=== PATIENT | male | born 1960 | race Caucasian/White ===

== ENCOUNTER 2018-10-22 00:55 | Observation (INO) | payer MEDICAID ==
[2018-10-22] VITALS (9 sets, daily range): BP systolic 102–124; BP diastolic 53–68; Ht 172.7 cm; Wt 81.1 kg
[~2018-10-22] VITALS: Ht 172.7 cm; Wt 81.1 kg
--- NOTE | ~2018-10-22 | HEMODYNAMI ---
PATIENT:GALINA HEBERT MEDICAL RECORD: [id number] : 56 LOCATION:[place] [address] ADMISSION DATE: 10/22/18 Generatedon:10/22/201814:51 Patient name: GALINA HEBERT Patient #: [id number] SSN: : 1960 Date of study: 10/22/2018 Page: Of Hemodynamic Procedure Report Patient Data Patient Demographics Procedure consent was obtained First Name: GALINA Gender: Male Last Name: EMILEE : 1960 Patient #: [id number] Age: 57 year(s) Race: Unknown Additional ID: [id number] Contact details [address]: [address] [place] [address] State: [place] City: [place] Zip code: [address] Admission Admission Data Admission Date: 10/22/2018 Admission Time: 4:32 Admit Source: Other Room #: D.2116 Height (in.): 67.72 BSA: 1.94 (m2) Height (cm.): 172 BMI: 27.38 (kg/m2) Weight (lbs.): 178.58 Weight (kg.): 81 Lab Results Lab Result Date: 10/22/2018 Lab Result Time: 0:00 Biochemistry Name Units Result Min Max BUN mg/dl 13 --(--*-)-- 7 18 Creatinine mg/dl 1 --(--*-)-- 0.6 1.3 CBC Name Units Result Min Max Hemoglobin g/dl 15 --(-*--)-- 13.5 17.5 Procedure Procedure Types Cath Procedure Diagnostic Procedure LHC LHC w/Coronaries PCI Procedure PTCA PTCA Initial Procedure Description Procedure Date Procedure Date: 10/22/2018 Procedure Start Time: 14:32 Procedure End Time: 14:50 Procedure Staff Name Function Varsha Gutiérrez RN Cable Television Access Coordinator Denys Dick MD Performing Physician Portia Crow RT Scrub Heike Oconnor RT Monitor Procedure Data Cath Procedure Fluoroscopy Diagnostic fluoroscopy Total fluoroscopy Time: 3.3 time: 3.3 min min Diagnostic fluoroscopy Total fluoroscopy dose: 747 dose: 747 mGy mGy Contrast Material Contrast Material Type Amount (ml) Isovue 370 71 Entry Location Entry Primary Successful Side Size Upsize Upsize Entry Closure Succes sful Closure Location (Fr) 1 (Fr) 2 (Fr) Remarks Device Remarks Femoral Right 5 Fr 6 Fr Exoseal artery Short Estimated blood loss: 5 ml Diagnostic catheters Device Type Used For End Catheter Placement MULTIPACK JL 4.0 5Fr Left Coronary catheter Angiography MULTIPACK 3DRC 5Fr Right Coronary catheter Angiography MULTIPACK Pigtail 5 Fr LV Angiography catheter Procedure Complications No complications Procedure Medications Medication Administration Route Dosage 0.9% NaCl I.V. 100 ml/hr Oxygen etCO2 Nasal cannula 2 l/min Lidocaine 2% added to field 20 Heparin Flush Bag added to field 2 bags (1000units/500ml NS) Versed I.V. 2 mg Fentanyl I.V. 50 mcg Plavix P.O. 75 mg Heparin Bolus I.V. 5000 units Fentanyl I.V. 50 mcg Hemodynamics Rest BSA: 1.94 (m2) O2 Consumption: Estimated: 239.95 (ml/min) O2 Consumption indexed : Estimated:123.69 (ml/min/m) Heart Rate: 86 (bpm) Pressure Samples Time Site Value (mmHg) Purpose Heart Use Rate(bpm) 14:38 LV 76/-3,0 Snapshot 74 Gradients Valve Time Site Site Mean SEP/DFP Peak To Heart Use 1 2 (mmHg) (sec/min) Peak Rate (mmHg) (bpm) Aortic 14:39 LV AO 73 Snapshots Pre Cath Intra NCS Post Cath Vital Signs Time Heart Resp SPO2 etCO2 NIBP (mmHg) Rhythm Pain Status Sedation Rate (ipm) (%) (mmHg) Level (bpm) 14:20:41 74 55 98 12.7 141/82(113) NSR 0 (11) , No 10(A) pain 14:24:59 77 17 96 38.2 117/78(106) NSR 0 (11) , No 10(A) pain 14:29:09 71 11 97 28.5 128/75(111) NSR 0 (11) , No 10(A) pain 14:33:25 69 12 97 20.2 126/75(104) NSR 0 (11) , No 9(A) pain 14:37:35 74 11 96 11.2 122/72(95) NSR 0 (11) , No 9(A) pain 14:41:51 73 16 95 16.5 110/64(83) NSR 4 (11) , 10(A) Distressing 14:46:50 74 17 94 22.5 Measuring NSR 0 (11) , No 9(A) pain 14:46:52 74 17 94 34.5 124/72(103) NSR 0 (11) , No 10(A) pain Medications Time Medication Route Dose Verified Delivered Reason Notes Effectiveness by by 14:20:16 Plavix P.O. 75 mg Denys Varsha for Kapil Brock antiplatelet MD PERDUE therapy 14:20:23 0.9% NaCl I.V. 100 Denys Varsha used for ml/hr Kapil Brock procedure MD PERDUE 14:20:29 Oxygen etCO2 2 Denys Varsha used for Nasal l/min Trivoli Brock procedure cannula MD PERDUE 14:20:34 Lidocaine 2% added 20ml Denys Ricoory for local to vial [facility] anesthetic field MD KELLY 14:20:39 Heparin Flush added 2 Denys Denys used for Bag to bags [facility] procedure (1000units/500ml field MD KELLY NS) 14:32:27 Versed I.V. 2 mg Denys Varsha for sedation St Aden Gutiérrez MD, RN 14:32:38 Fentanyl I.V. 50 Denys Varsha for sedation [facility] St Aden Gutiérrez MD, RN 14:41:13 Heparin Bolus I.V. 5000 Denys Varsha for verif ied units [facility] anticoagulation with Dr. MD PERDUE [place] 14:42:01 Fentanyl I.V. 50 Denys Varsha for sedation [facility] St Aden Gutiérrez MD, RN Procedure Log Time Note 14:15:54 Portia Crow RT(R) sent for patient. Start room use. 14:19:36 Vital chart was started 14:20:16 Plavix 75 mg P.O. was administered by Varsha Gutiérrez RN; for antiplatelet therapy; 14:20:23 0.9% NaCl 100 ml/hr I.V. was administered by Varsha Gutiérrez RN; used for procedure; 14:20:29 Oxygen 2 l/min etCO2 Nasal cannula was administered by Varsha Gutiérrez RN; used for procedure; 14:20:34 Lidocaine 2% 20ml vial added to was administered by Denys Dick MD; for local anesthetic; 14:20:39 Heparin Flush Bag (1000units/500ml NS) 2 bags added to field was administered by Denys Dick MD; used for procedure; 14:29:01 Time tracking: Regular hours (M-F 7:00 - 5:00) 14:29:05 Plan of Care:Hemodynamics will remain stable., Cardiac rhythm will remain stable., Comfort level will be maintained., Respiratory function will remain adequate., Patient/ family verbilizes understanding of procedure., Procedure tolerated without complication., Recovers from procedure without complications.. 14:29:12 Patient received from Med II to CCL 2 Alert and oriented. Tansferred to table in Supine position. 14:29:12 Warm blankets applied, and avila hugger turned on for patient comfort. 14:29:13 Correct patient and procedure confirmed by team. 14:29:14 Signed procedure consent form obtained from patient. 14:29:15 ECG and BP/O2 sat monitors applied to patient. 14:29:16 Baseline sample Acquired. 14:29:20 Rhythm: sinus rhythm 14:29:22 Full Disclosure recording started 14:29:33 H&P Date Dictated: 10/22/2018 New H&P dictated by physician.. 14:29:37 Pre-procedure instructions explained to patient. 14:29:38 Pre-op teaching completed and patient verbalized understanding. 14:29:39 Family in waiting room. 14:29:40 Patient NPO since Midnight. 14:29:42 Is the patient allergic to Iodine/contrast media? No. 14:29:43 Was the patient premedicated? No 14:29:44 Is patient on blood thinner?Yes 14:29:46 ACC The patient was administered the following blood thiners within the last 24 hours: ACCPlavix 14:29:48 Patient diabetic? Yes. 14:29:49 If diabetic: On Metformin? Yes 14:29:53 If on Metformin: Last Dose? 10/20/2018 14:29:57 Previous problem with sedation/anesthesia? No ? 14:29:58 Snore? Yes 14:31:07 Sleep apnea? No 14:31:08 Deviated septum? No 14:31:08 Opens mouth fully? Yes 14:31:09 Sticks out tongue? Yes 14:31:10 Airway obstruction? No ? 14:31:15 Dentures? Yes out 14:31:22 Pre procedure: right dorsailis pedis pulse Inaccessible 14:31:28 Pre procedure: left dorsailis pedis pulse Inaccessible 14:31:32 Patient pain scale 0/10 ?. 14:31:37 IV patent on arrival in left forearm with 0.9% NaCl at [facility]. 14:31:40 Lab results completed and on chart. 14:31:47 Right groin area was prepped with chlora-prep and draped in sterile fashion 14:31:48 Alarms reviewed by R. N. 14:31:48 Sharps counted by scrub and verified by R.N. 14:31:49 Physician arrived 14:31:49 --------ALL STOP TIME OUT------ 14:31:50 Final Timeout: patient, procedure, and site verified with staff and physician. All members of the team are in agreement. 14:31:51 Right groin site verified by team. 14:31:54 Maximum allowable Isovue 300 dose 300ml. Physician notified. (300ml for normal creatinines. For patients with creatinine of 1.7 or higher multiply weight(kg) x 5 divided by creatinine.) 14:31:58 Fire Safety Assessment: A--An alcohol-based skin anteseptic being used preoperatively., C--Open oxygen or nitrous oxide is being used., D--An ESU, laser, or fiber-optic light is being used. 14:32:01 Physical assessment completed. ASA score P 2 - A patient with mild systemic disease as per Varsha Gutiérrez RN. 14:32:04 Sedation plan: IV Moderate Sedation Medication:Versed, Fentanyl 14:32:07 Procedure started. 14:32:09 Local anesthetic to right femoral artery with Lidocaine 2% by Denys Dick MD.INITIAL ACCESS ONLY 14:: A 5 Fr sheath was inserted into the Right Femoral artery 14:32: Versed 2 mg I.V. was administered by Varsha Gutiérrez RN; for sedation; 14::38 Fentanyl 50 mcg I.V. was administered by Varsha Gutiérrez RN; for sedation; 14:: Use device set Femoral Dx 14:34:24 ACIST Syringe (39991) opened to sterile field. 14:34:24 Bag Decanter (2002S) opened to sterile field. 14:34:25 Medline Cath Pack ([id number]) opened to sterile field. 14:34:25 DIAGNOSTIC WIRE .035 260cm J wire (776635) opened to sterile field. 14:34:27 ACIST Hand Control (05616) opened to sterile field. 14:34:27 ACIST Manifold (04849) opened to sterile field. 14:34:27 DIAGNOSTIC Multipack 5Fr catheter set (YG3228) opened to sterile field. 14:34:28 Tegaderm 4 x 4 (1626W) opened to sterile field. 14:34:29 SHEATH 5FR Turpin (IHO980) opened to sterile field. 14:34:37 A MULTIPACK JL 4.0 5Fr catheter was advanced over the wire and used for Left Coronary Angiography. 14:35:13 LCA angiography performed. 14:35:16 Injector settings: Ml/sec: 3, Volume: 6, 14:35:44 Lab Result : Hemoglobin 15 g/dl 14:35:44 Lab Result : Creatinine 1 mg/dl 14:35:44 Lab Result : BUN 13 mg/dl 14:35:48 Admit Source: Other 14:35:51 Patient Weight : 178.58 lbs 14:35:57 Patient Height : 67.72 inches 14:36:34 Injector settings: Ml/sec: 3, Volume: 6, 14:36:36 Catheter removed. 14:36:42 A MULTIPACK 3DRC 5Fr catheter was advanced over the wire and used for Right Coronary Angiography. 14:37:04 RCA angiography performed. 14:37:07 Injector settings: Ml/sec: 3, Volume: 6, 14:37:21 Catheter removed. 14:38:03 A MULTIPACK Pigtail 5 Fr catheter was advanced over the wire and used for LV Angiography. 14:38:43 LV hemodynamics recorded. 14:38:44 LV gram done using DUARTE 14:39:03 EF : 55 % 14:39:21 Catheter removed. 14:39:25 Proceeding to intervention. 14:39:47 SHEATH 6FR Turpin (FYC921) opened to sterile field. 14:39:48 INFLATOR Merit BasixCompak (GA9608) opened to sterile field. 14:39:53 BMW 300cm Moneta 2 J wire (1109497F) opened to sterile field. 14:40:12 GUIDE 6FR EBU 3.5 catheter (EC4NJN50) opened to sterile field. 14:40:27 Sheath upsized to a 6 Fr Short. 14:40:57 6 Fr ebu 3.5 guide catheter was inserted over the wire 14:41:13 Heparin Bolus 5000 units I.V. was administered by Varsha Gutiérrez RN; for anticoagulation; verified with Dr. Llamas 14:42:01 Fentanyl 50 mcg I.V. was administered by Varsha Gutiérrez RN; for sedation; 14:42:20 WHISPER 300cm guide wire ([id number]) opened to sterile field. 14:42:31 whisper wire advanced. 14:44:17 Inflate balloon Inflation number: 1 A EMERGE OTW 2.5 x 12 balloon ([id number]) was prepped and advanced across the Ramus, then inflated to 12 TRINI for 0:30 (min:sec). 14:44:57 Inflation number: 2 The EMERGE OTW 2.5 x 12 balloon ([id number]) was reinflated across the Ramus, to 12 TRINI for 0:30 (min:sec). 14:46:05 Balloon removed over the wire. 14:46:05 Wire removed. 14:46:06 Guide catheter removed. 14:46:17 EXOSEAL 6Fr (EX600) opened to sterile field. 14:46:29 Sheath removed intact; hemostasis achieved with Exoseal to the Right Femoral artery. 14:46:52 Procedure ended.(Physican Out) 14:47:14 Fluoroscopy time 03.30 minutes. 14:47:18 Fluoroscopy dose: 747 mGy 14:47:18 Flurop Dose total: 747 14:47:56 Contrast amount:Isovue 370 71ml. 14:48:30 Sharps counted by scrub and verified by R.N. 14:48:38 Insertion/operative site no bleeding no hematoma. 14:48:41 Post-op/insertion site Right Femoral artery dressed using a 4 x 4 and Tegaderm. 14:48:44 Post right femoral artery:stable 14:48:45 Post Procedure Pulses reassessed and unchanged 14:48:48 Post procedure rhythm: unchanged. 14:48:55 Estimated blood loss: 5 ml 14:48:56 Post procedure instruction explained to patient.Patient verbalizes understanding. 14:48:57 Patient needs reinforcement of post procedure teaching. 14:49:18 Procedure type changed to Cath procedure, Diagnostic procedure, LHC, LHC w/Coronaries, PCI procedure, PTCA, PTCA Initial 14:49:20 Procedure and supply charges have been captured, reviewed, submitted and are correct. 14:49:57 Procedure Complication : No complications 14:50:06 Vital chart was stopped 14:50:07 See physician's report for complete and final results. 14:50:21 Report given to Med II. 14:50:27 Patient transfered to Med II with Stretcher. 14:50:28 Procedure ended. 14:50:28 Full Disclosure recording stopped 14:50:34 ACC-PCI Only Patient was given prescriptions, or instructed by Denys Dick MD to start/continue the following medications upon discharge: Plavix 14:50:36 End room use (Document Last) Intervention Summary Intervention Notes Time ActionType Lesion and Equipment Action# Pressure Duration Attributes Used 14:44:17 Inflate Ramus EMERGE OTW 1 12 00:30 balloon 2.5 x 12 balloon ([id number]) 14:44:57 Reinflate Ramus EMERGE OTW 2 12 00:30 balloon 2.5 x 12 balloon ([id number]) Device Usage Item Name Manufacture Quantity Catalog Number Hospital Part Current Min imal Lot# / Charge Number Stock Stock Serial# Code ACIST Acist 1 64536 857090 018363 748603 20 Syringe Medical (65510) Systems Inc Bag Decanter Microtek 1 638080 37044 230730 5 () Medical Inc. Medline Cath Medline 1 [id number] 943511 78154 373056 5 Pack ([id number]) DIAGNOSTIC [facility] Elias 1 233906 845936 870512 263090 30 WIRE .035 260cm J wire (820656) ACIST Hand Acist 1 26553 582369 007885 747118 5 Control Medical (48302) Systems Inc ACIST Acist 1 83729 693482 898477 275085 5 Manifold Medical (46279) Systems Inc DIAGNOSTIC Cardinal 1 WB4887 303944 95172 661369 30 Acorns 5Fr catheter set (YW1159) Tegaderm 4 x 3M 1 1626W 356939 346929 631692 5 4 (1626W) SHEATH 5FR Terumo 1 TBO933 499070 385020 414697 5 Turpin (VAD083) MULTIPACK JL Cardinal 1 573926 5 4.0 5Fr Health catheter MULTIPACK Cardinal 1 010859 5 3DRC 5Fr Health catheter MULTIPACK Cardinal 1 760169 5 Pigtail 5 Fr Health catheter SHEATH 6FR Terumo 1 JMA615 644476 242445 748512 40 Turpin (IAV296) INFLATOR Merit 1 IH6383 856668 412947 593926 15 [facility] Medical BasixCompak (CV4455) BMW 300cm Torres 1 [id number] 046593 672728 759905 5 Moneta 2 Vascular J wire (9324222N) GUIDE 6FR Medtronic 1 [id number] 563494 71220 365042 3 EBU 3.5 catheter (DL0WSJ29) WHISPER Torres 1 [id number] 329912 416962 851540 5 300cm guide Vascular wire (0205850LS) EMERGE OTW [place] 1 [id number] 745534 156881 971961 5 [id number] 2.5 x 12 Scientific balloon ([id number]) EXOSEAL 6Fr Cardinal 1 EX600 462153 829561 229908 10 (EX600) Health Signature Audit [place] Stage Time Signature Unsigned Intra-Procedure 10/22/2018 Heike Oconnor 2:51:33 PM RT(R) Signatures Monitor : Heike Oconnor RT Signature : Date : Time : [facility] [address] [place] [address]
--- NOTE | ~2018-10-22 | OP ---
PATIENT NAME: GALINA HEBERT MEDICAL RECORD: [id number] :56 LOCATION:D. D.2116 ADMISSION DATE:10/22/18 SURGEON: REMY SANTOS MD DATE OF OPERATION: 10/22/2018 PROCEDURE: Left heart catheterization, selective coronary angiography, plus PTCA to ramus branch, right femoral artery approach. CATHETERS: A 5-Croatian sheath, 5/4 left and right Mona, 5/4 pig. The procedure was well tolerated. The patient returned to the alejandro, sheath removed. ExoSeal device placed. FINDINGS: Left ventriculography in 30-degree DUARTE view; normal wall motion and normal systolic function. CORONARY ANATOMY: LEFT MAIN: Left main is free of disease. LAD: An area of previous stenting is widely patent without evidence of restenosis and no progression of [place] disease. There is a high OM versus ramus branch with an elongated 80% stenosis. CIRCUMFLEX: Otherwise, free of disease. RIGHT CORONARY ARTERY: The area of previously placed stents are widely patent without evidence of restenosis. No progression of [place] disease. IMPRESSION: Intervention of the ramus/high obtuse marginal momentarily. DESCRIPTION OF PROCEDURE: A 5-Croatian sheath was exchanged for a 6-Croatian sheath. EBU 3.5 guiding catheter provided good guide catheter support followed by 300-cm Whisper wire. Balloon inflation was performed using 2.5 x 15 mm Knott balloon up to 12 atmospheres up and down. The elongated 80% stenosis showed excellent resolution of 80% stenosis with a stent like result. LEANDRO flow was 3 throughout the procedure. Heparin was used in the case. Sheath closed with ExoSeal device. TRANSINT:[id number] Voice Confirmation ID: [id number] DOCUMENT ID: [id number] REMY SANTOS MD CC: [id number] DICTATION DATE: 10/22/18 1457 BATTERY INSPECTOR: 10/22/18 1621 ADM IN [facility] [address] [place] [address]
--- NOTE | ~2018-10-22 | CN ---
PATIENT NAME:GALINA HEBERT MEDICAL RECORD: [id number] : 56 LOCATION:[facility] D.2116 ADMIT DATE: 10/22/18 ACCOUNT: [id number] CONSULTING PHYSICIAN: REMY SANTOS MD REFERRING PHYSICIAN: MARIA T SURESH MD DATE OF CONSULTATION: 10/22/2018 HISTORY OF PRESENT ILLNESS: A 57-year-old gentleman with a known history of coronary artery disease status post PTCA stenting, has a history of peripheral vascular disease status post AKA status post right BKA approximately 2 months ago, admitted with chest pain consistent with typical angina, has one episode of rest pain, typical this has a chronic stable anginal pattern, but this has been worsening postoperatively. We are asked to see him concerning cardiovascular status PAST MEDICAL HISTORY: Includes: 1. History of hypertension. 2. Hyperlipidemia. 3. Diabetes mellitus. 4. Gastroesophageal reflux disease. MEDICATIONS: Include Plavix 75 mg p.o. daily, atorvastatin 80 mg p.o. daily, carvedilol 6.125 daily, Imdur 30 daily, lisinopril 20 daily, aspirin 81 daily, tramadol 50 every 4 hours p.r.n., Protonix 40 mg p.o. daily, insulin per scale, Glucophage, metformin 1 gram b.i.d. SOCIAL HISTORY: Smokes about a pack a day, nonsmoker. No illicit drug use. No set exercise program. ALLERGIES: HYDROCODONE, PENICILLIN. REVIEW OF SYSTEMS: The patient reports easy bruising but reports no swollen glands. The patient reports no fever, no night sweats, no significant weight gain, no significant weight loss. No significant exercise tolerance. The patient reports no dry eyes, no irritation, no vision change. Patient reports no difficulty hearing and no ear pain. Patient reports no frequent nose bleeds or nose and sinus problems. Patient reports on arm pain on exertion. No shortness of breath while lying down. No history of heart murmur. Patient reports no cough, no wheezing or coughing up blood. Patient reports no abdominal pain, no vomiting. Normal appetite. No diarrhea and not vomiting blood. No nausea and no constipation. Patient reports no incontinence. No difficulty urinating. No hematuria. No increased frequency. Patient reports no muscle aches. No weakness, no arthralgias, no back pain. No swelling of the extremities. Patient reports no abnormal mole, no jaundice, no rashes. Reports no loss of consciousness. No weakness and no numbness. No seizures, dizziness, or headaches. The patient reports no depression, no sleep disturbance, feeling safe in a relationship and no alcohol abuse. Patient reports on fatigue. Reports no runny nose or sinus pressure. No itching, no hives, and no frequent sneezing. PHYSICAL EXAMINATION: GENERAL: Pleasant gentleman, in no acute distress. VITAL SIGNS: Blood pressure 102/57, pulse 65 and regular. HEENT: Normocephalic, atraumatic. NECK: No bruits are noted. CONSULT REPORT [id number] GALINA HEBERT HEART: Regular, II/ systolic ejection murmur. LUNGS: Good air excursion. ABDOMEN: Soft, nontender. EXTREMITIES: Lower extremities show well healing scars from previous surgical intervention. IMPRESSION: Accelerated angina. PLAN: For diagnostic angiography, intervention based on the above. TRANSINT:[id number] Voice Confirmation ID: [id number] DOCUMENT ID: [id number] REMY SANTOS MD CC: [id number] DICTATION DATE: 10/22/18753 CHERRY SORTER: 10/22/18 0851 ADM IN [facility] [address] [place] [id number]
[~2018-10-22 00:55] MED LIST: BAYER CHEWABLE81 MG PO; COREG 3.1253.125 MG PO; GLUCOPHAGE500 MG PO; HUMALOG 30100 UNITS/ SC; ISOSORBIDE MONO30 M1 PO; LANTUS INSULIN10 ML SC; LIPITOR40 MG PO; LISINOPRIL10 MG PO; LISINOPRIL5 MG PO; NITROSTAT0.4 MG SL; PLAVIX75 MG PO; PROAIR HFA8.5 GM INH; PROTONIX40 MG PO; ULTRAM50 MG PO; ZOFRAN4 MG PO
[2018-10-22 01:28] LABS: BASOPHILS 0.3 % (0-2); EOSINOPHILS 1.3 % (0-7); HEMATOCRIT 42.8 % (42.0-54.0); IMMATURE GRANULOCYTES 0.3 % (0-5); LYMPHOCYTES 16.4 % (15-50); MCH 30.4 pg (26.0-34.0); MCV 86.8 fL (80.0-100.0); MEAN PLATELET VOLUME 10.6 fL (7.4-10.4); MONOCYTES 9.6 % (2-11); NEUTROPHILS 72.1 % (40-80); PLATELET COUNT 198 10x3/uL (130-400); RBC 4.93 10x6/uL (4.20-6.10); RDW 13.1 % (11.5-14.5); WBC 11.2 10x3/uL (4.8-10.8)
[2018-10-22 01:40] LABS: APTT 29.3 SECONDS (22.8-39.4); INR 1.02 (0.85-1.17); PROTIME 12.9 SECONDS (11.6-15.0)
[2018-10-22 01:42] LABS: ALBUMIN 3.6 g/dL (3.4-5.0); ALKALINE PHOSPHATASE 75 U/L (46-116); ALT (SGPT) 9 U/L (10-68); BILIRUBIN - TOTAL 0.38 mg/dL (0.2-1.3); CALC OSMOLALITY 282 mosm/kg (275-300); CALCIUM 8.6 mg/dL (8.5-10.1); CARBON DIOXIDE 28.8 mmol/L (21.0-32.0); CHLORIDE - SERUM 100 mmol/L (98-107); POTASSIUM - SERUM 4.1 mmol/L (3.5-5.1); PROTEIN - SERUM 6.8 g/dL (6.4-8.2); SODIUM 135 mmol/L (136-145); UREA NITROGEN 13 mg/dL (7-18); eGFR NON AFRICAN AMERICAN 81 mL/min (90-120)
[2018-10-22 01:45] LABS: GLUCOSE 326 mg/dL (74-106)
[2018-10-22 01:55] LABS: CKMB 1.8 U/L (0.0-3.6); CREATINE KINASE 61 UL (21-232); MAGNESIUM - SERUM 1.8 mg/dL (1.8-2.4)
[2018-10-22 01:56] LABS: TROPONIN-I < 0.017 ng/mL (0.000-0.060)
--- NOTE | 2018-10-22 02:01 | NUR ---
PT REFUSED NITRO AT THIS TIME. PT STATES THAT TOOK 8 NITRO TODAY AND THEY DID NOT HELP. INFORMED.
--- NOTE | 2018-10-22 03:00 | NUR ---
PT RESTING ON BED. PT SPOUSE AT BEDSIDE. NO S/S OF ACUTE DISTRESS NOTED.
--- NOTE | 2018-10-22 04:02 | NUR ---
NS INFUSION DECREASED TO KVO DUE TO FSBS
--- NOTE | 2018-10-22 04:04 | NUR ---
FSBS 93. EDP NOTIFIED. PT PROVIDED SANDWICH AND DIET COLA.
--- NOTE | 2018-10-22 04:59 | NUR ---
FSBS 135
--- NOTE | 2018-10-22 05:34 | NUR ---
RECIEVED TO ROOM 2115 FROM ER VIA STRETCHER. PT A&O. RSPERATIONS TAMEKA RA. IV TO LEFT AC SL. SITE CLEAN AND DRY. BILATERAL AKA, LEFT LEG WITH PROSTHESIS, RIGHT BKA WITH A FEW SCABS. PT STATED THAT THE RIGHT AMPUTATION WAS DONE THIS LAST JULY AND THAT HE "GETS AROUND BY WHEEL CHAIR" HISTORY AND MED REC OBTAINED. PLACED ON TELEMETRY, 64 SR PER MT. PT CURRENTLY DENIES PAIN OR NEEDS. SIGNIFICANT OTHER ASHELY IS AT BED SIDE. BED LOW, CL IN REACH.
[2018-10-22 05:37] LABS: CKMB 1.5 U/L (0.0-3.6); CREATINE KINASE 56 UL (21-232)
[2018-10-22 05:50] LABS: TROPONIN-I < 0.017 ng/mL (0.000-0.060)
[2018-10-22 08:12] LABS: BASOPHILS 0.3 % (0-2); EOSINOPHILS 1.6 % (0-7); HEMATOCRIT 43.7 % (42.0-54.0); HEMOGLOBIN 15.1 g/dL (13.5-17.5); IMMATURE GRANULOCYTES 0.2 % (0-5); LYMPHOCYTES 16.7 % (15-50); MCH 30.4 pg (26.0-34.0); MCHC 34.6 g/dL (31.0-37.0); MCV 87.9 fL (80.0-100.0); MEAN PLATELET VOLUME 11.2 fL (7.4-10.4); MONOCYTES 9.6 % (2-11); NEUTROPHILS 71.6 % (40-80); PLATELET COUNT 213 10x3/uL (130-400); RBC 4.97 10x6/uL (4.20-6.10); RDW 13.4 % (11.5-14.5); WBC 11.4 10x3/uL (4.8-10.8)
[2018-10-22 08:33] LABS: CALC OSMOLALITY 282 mosm/kg (275-300); CALCIUM 8.4 mg/dL (8.5-10.1); CARBON DIOXIDE 25.2 mmol/L (21.0-32.0); CHLORIDE - SERUM 106 mmol/L (98-107); CREATININE - SERUM 0.9 mg/dL (0.6-1.3); SODIUM 140 mmol/L (136-145); UREA NITROGEN 14 mg/dL (7-18); eGFR NON AFRICAN AMERICAN > 90 mL/min (90-120)
[2018-10-22 08:52] LABS: GLUCOSE 150 mg/dL (74-106)
--- NOTE | 2018-10-22 10:17 | NUR ---
URINE SPECIMEN COLLECTED AND TAKEN TO LAB. WILL MONITOR.
[2018-10-22 11:33] LABS: APPEARANCE CLEAR (CLEAR); BILIRUBIN NEGATIVE (NEGATIVE); COLOR YELLOW (YELLOW); GLUCOSE 1000 mg/dL (NEGATIVE); KETONE NEGATIVE (NEGATIVE); NITRITE NEGATIVE (NEGATIVE); PROTEIN NEGATIVE (NEGATIVE); SPECIFIC GRAVITY 1.015 (1.005-1.020)
[2018-10-22 11:38] LABS: CKMB 1.5 U/L (0.0-3.6); CREATINE KINASE 45 UL (21-232)
[2018-10-22 11:39] LABS: TROPONIN-I < 0.017 ng/mL (0.000-0.060)
--- NOTE | 2018-10-22 14:13 | NUR ---
TAMI HDZ. PRE-OPS GIVEN. REFUSES SCDS AT THIS TIME. LEAVING FOR EAR MUFF ASSEMBLER BY BED.
--- NOTE | 2018-10-22 15:24 | NUR ---
BACK FROM DETONATOR ASSEMBLER. VS WNL. RIGHT GROIN STABLE WITHOUT BLEEDING OR HEMATOMA NOTED. WILL MONITOR.
[2018-10-22 16:30] LABS: CREATINE KINASE 47 UL (21-232); TROPONIN-I < 0.017 ng/mL (0.000-0.060)
[2018-10-22 16:33] LABS: CKMB 5.5 U/L (0.0-3.6)
--- NOTE | 2018-10-22 19:51 | NUR ---
RESUMING PATIENT CARE. PATIENT IS ALERT AND ORIENTED. RESTING COMFORTABLY IN BED. RESPIRATIONS ARE EVEN AND UNLABORED. NO S/S OF DISTRESS. NO C/O PAIN. DENIES NEEDS. FAMILY AT BEDSIDE. CALL LIGHT WITHIN REACH. WILL CPOC.
--- NOTE | 2018-10-22 21:27 | NUR ---
CALLED [facility]S TO SEE IF SOMEONE COULD BRING SOME SCRUB PANTS REQUESTED. [facility] TO BE BRING THEM UP. RECEIVED PHONE CALL FROM MED/SURG. PATIENT SIGNIFICANT OTHER WENT TO MED/SURG AND ASKED THEM TO CALL THE [employer] BECAUSE SHE THOUGHT SHE WOULD GET THE SCRUB PANTS FASTER,
[2018-10-23 00:40] VITALS: BP 124/72
[2018-10-23 05:38] VITALS: BP 118/52
[2018-10-23 06:33] LABS: CALCIUM 8.5 mg/dL (8.5-10.1); CARBON DIOXIDE 24.7 mmol/L (21.0-32.0); CHLORIDE - SERUM 105 mmol/L (98-107); GLUCOSE 138 mg/dL (74-106); POTASSIUM - SERUM 4.2 mmol/L (3.5-5.1); SODIUM 138 mmol/L (136-145)
[2018-10-23 06:42] LABS: CALC OSMOLALITY 279 mosm/kg (275-300); CREATININE - SERUM 0.6 mg/dL (0.6-1.3); UREA NITROGEN 19 mg/dL (7-18); eGFR NON AFRICAN AMERICAN > 90 mL/min (90-120)
[2018-10-23 07:36] LABS: BASOPHILS 0.4 % (0-2); EOSINOPHILS 2.3 % (0-7); HEMATOCRIT 41.4 % (42.0-54.0); HEMOGLOBIN 14.2 g/dL (13.5-17.5); IMMATURE GRANULOCYTES 0.1 % (0-5); LYMPHOCYTES 22.8 % (15-50); MCH 29.8 pg (26.0-34.0); MCHC 34.3 g/dL (31.0-37.0); MEAN PLATELET VOLUME 10.4 fL (7.4-10.4); MONOCYTES 9.4 % (2-11); RBC 4.76 10x6/uL (4.20-6.10); RDW 13.3 % (11.5-14.5)
[2018-10-23 07:38] LABS: PLATELET COUNT 169 10x3/uL (130-400); WBC 7.4 10x3/uL (4.8-10.8)
[2018-10-23 08:00] VITALS: BP 102/66
--- NOTE | 2018-10-23 09:30 | NUR ---
LEAVING FOR CTA CHEST BY W/C. WILL CONT. PLAN OF CARE.
[2018-10-23] MEDS ORDERED: CARAFATE1 G PO (10:42)
[2018-10-23 11:00] VITALS: BP 139/64
--- NOTE | 2018-10-23 12:41 | NUR ---
IV AND TELEMETRY DCD. DC PLANS GIVEN. UNDERSTANDING VOICED. ESCORTED TO CAR BY W/C.
--- NOTE | 2018-10-24 07:48 | MORECARE ---
CASE MANAGEMENT DISCHARGE SUMMARY PATIENT: GALINA HEBERT UNIT: [id number] ADM DATE: 10/22/18 AGE: 57 : 56 SEX: M ROOM/BED: D.2116 AUTHOR: VIRGINIE FERGUSON PHYSICIAN: REFERRING PHYSICIAN: MARIA T SURESH MD DATE OF SERVICE: 10/24/18 Discharge Plan Patient Name: GALINA HEBERT Facility: [facility]:[place] : 1960 Planned Disposition: Home Anticipated Discharge Date: 10/23/18 Discharge Date: 10/23/2018 Expected LOS: 1 Initial Reviewer: [email or web address] Initial Review Date: 10/24/2018 Generated: 10/24/18 8:48 am Patient Name: GALINA HEBERT Page 00930 at 0748 All edits/amendments must be made on the electronic document DICTATION DATE: 10/24/1848 SUPERVISOR TELEPHONE CLERKS: [email or web address] 10/24/18 0748 RPT#: [id number] DC DATE:10/23/18 STATUS: DIS IN [facility] [address] [place] [address] END OF REPORT
== END 2018-10-23 12:44 | disposition home or self-care (01) ==
LOC: D.ER 00:55 → OBSVTIME 04:32 → D.EDHOLD 04:32 → D.M2 04:55
PROVIDERS: Family Medicine; Internal Medicine Interventional Cardiology; ADMIT Internal Medicine Nephrology; ATTEND Internal Medicine Nephrology
DX: I25.110 Atherosclerotic heart disease of native coronary artery with unstable angina pectoris (principal); I10 Essential (primary) hypertension; J96.01 Acute respiratory failure with hypoxia; E78.5 Hyperlipidemia, unspecified; J44.9 Chronic obstructive pulmonary disease, unspecified; E11.51 Type 2 diabetes mellitus with diabetic peripheral angiopathy without gangrene; F17.213 Nicotine dependence, cigarettes, with withdrawal; K21.9 Gastro-esophageal reflux disease without esophagitis

== ENCOUNTER 2018-10-24 01:29 | Observation (INO) | payer MEDICAID ==
[2018-10-24] VITALS (12 sets, daily range): BP systolic 81–154; BP diastolic 44–94; Ht 172.7 cm; Wt 70.0 kg
[~2018-10-24] VITALS: Ht 172.7 cm; Wt 70.0 kg
[~2018-10-24 01:29] MED LIST changes: +CARAFATE1 G PO
[2018-10-24 01:53] LABS: BASOPHILS 0.1 % (0-2); EOSINOPHILS 1.5 % (0-7); HEMATOCRIT 45.2 % (42.0-54.0); HEMOGLOBIN 16.2 g/dL (13.5-17.5); IMMATURE GRANULOCYTES 0.1 % (0-5); LYMPHOCYTES 20.2 % (15-50); MCH 30.5 pg (26.0-34.0); MCHC 35.8 g/dL (31.0-37.0); MEAN PLATELET VOLUME 10.1 fL (7.4-10.4); MONOCYTES 7.6 % (2-11); NEUTROPHILS 70.5 % (40-80); PLATELET COUNT 198 10x3/uL (130-400); RBC 5.32 10x6/uL (4.20-6.10); WBC 8.5 10x3/uL (4.8-10.8)
[2018-10-24 02:08] LABS: ALBUMIN 3.7 g/dL (3.4-5.0); ALKALINE PHOSPHATASE 72 U/L (46-116); ALT (SGPT) 14 U/L (10-68); BILIRUBIN - TOTAL 0.51 mg/dL (0.2-1.3); CALCIUM 9.3 mg/dL (8.5-10.1); CARBON DIOXIDE 25.6 mmol/L (21.0-32.0); CHLORIDE - SERUM 99 mmol/L (98-107); POTASSIUM - SERUM 4.1 mmol/L (3.5-5.1); PROTEIN - SERUM 7.2 g/dL (6.4-8.2); SODIUM 133 mmol/L (136-145)
[2018-10-24 02:11] LABS: CALC OSMOLALITY 272 mosm/kg (275-300); CREATININE - SERUM 0.9 mg/dL (0.6-1.3); GLUCOSE 219 mg/dL (74-106); UREA NITROGEN 13 mg/dL (7-18); eGFR NON AFRICAN AMERICAN > 90 mL/min (90-120)
[2018-10-24 02:20] LABS: CKMB 2.2 U/L (0.0-3.6); CREATINE KINASE 76 UL (21-232); MAGNESIUM - SERUM 1.9 mg/dL (1.8-2.4)
--- NOTE | 2018-10-24 02:25 | NUR ---
MORPHINE 6MG IV GIVEN PER ORDER, PATIENT'S PAIN REDUCED TO 5.
[2018-10-24 02:29] LABS: TROPONIN-I < 0.017 ng/mL (0.000-0.060)
[2018-10-24 02:57] LABS: APTT 27.3 SECONDS (22.8-39.4); INR 0.99 (0.85-1.17); PROTIME 10.3 SECONDS (11.6-15.0)
[2018-10-24 03:25] LABS: D-DIMER-QUANTITATIVE 1.12 ug/mLFEU (0.20-0.54)
--- NOTE | 2018-10-24 04:41 | NUR ---
PATIENT ARRIVED TO UNIT. PATIENT ALERT AND ORIENTED. RESPIRATIONS ARE EVEN AND UNLABORED. PATIENT DENIES PAIN. WHEN GOIGNT THROUGH MED REC. PATIENT COULD NOT TELL ME LAST DOSE. PATIENT STATED, "HE HAD NOT GONE TO PHARMACY TO GET HIS MEDS". PATIENT EDUCATED ON THE IMPORTANT TO TAKE MEDICATION PRESCRIBED. PATIENT SAID, "HE DID NOT HAVE A HAVE TO GET TO THE PHARMACY TO GET THEM.
--- NOTE | 2018-10-24 07:20 | NUR ---
RECEIVED PT IN BED EYES CLOSED RESP UNLABORED NAD NOTED AT BEDSIDE
[2018-10-24 08:27] LABS: CKMB 1.9 U/L (0.0-3.6); CREATINE KINASE 51 UL (21-232)
[2018-10-24 08:28] LABS: TROPONIN-I < 0.017 ng/mL (0.000-0.060)
--- NOTE | 2018-10-24 08:52 | NUR ---
PT C/O OF FEELING LIKE BLOOD SUGAR LOW CHECKED FSBS 73 PT BECAME BELIGERENT STATING THAT IS TOO LOW FOR ME EXPLAINED TO PT WE HAVE A PROTOCOL FOR BLOOD SUGAR BELOW 80 PT STATED HE DIDN'T GIVE A DAMN WHAT WE HAD HE NEEDED ONE OF THOSE SMALL COKES EXPLAINED HE WAS NPO UNITL SEEN BY CARDIOLOGY PT YELLING HE DIDIN'T CARE WHAT CARDIOLOGY WANTED HE WAS GOING TO EAT EVEN IF HE DIDN'T GET ANYTHING DONE
--- NOTE | 2018-10-24 09:10 | NUR ---
PT EATING PEANUT BUTTER AND CRACKERS AND HAS A COKE STATES HE WILL EAT WHAT HE WANTS CARDIOLOGY NOTIFIED
--- NOTE | 2018-10-24 10:00 | NUR ---
RESTING QUIETLY CALM AT THIS TIME AT BEDSIDE
[2018-10-24 13:34] LABS: CKMB 1.7 U/L (0.0-3.6); CREATINE KINASE 42 UL (21-232); TROPONIN-I 0.017 ng/mL (0.000-0.060)
--- NOTE | 2018-10-24 23:11 | NUR ---
INTRODUCED SELF TO PATIENT, AT BEDSIDE. NO NEEDS AT THIS TIME. RESP EVEN AND UNLABORED.
--- NOTE | 2018-10-25 01:26 | NUR ---
PATIENT REQUESTED PAIN MEDICATION BUT WHEN THIS NURSE WENT INTO ROOM, PATIENT WAS AUDIBLY SNORING.
--- NOTE | 2018-10-25 03:29 | NUR ---
PATIENT RESTING WITH EYES CLOSED, RESP EVEN AND UNLABORED. CALL LIGHT IN REACH, SPOUSE ASLEEP AT BEDSIDE.
[2018-10-25 04:00] VITALS: BP 105/53
[2018-10-25 07:03] LABS: APPEARANCE CLEAR (CLEAR); COLOR YELLOW (YELLOW); SPECIFIC GRAVITY 1.015 (1.005-1.020)
[2018-10-25 07:04] LABS: BILIRUBIN NEGATIVE (NEGATIVE); GLUCOSE 250 mg/dL (NEGATIVE); KETONE NEGATIVE (NEGATIVE); NITRITE NEGATIVE (NEGATIVE); PROTEIN NEGATIVE (NEGATIVE); UROBILINOGEN NORMAL (NORMAL)
[2018-10-25 07:56] VITALS: BP 109/59
[2018-10-25 11:37] VITALS: BP 111/52
[2018-10-25 14:24] LABS: HEMATOCRIT 39.9 % (42.0-54.0); HEMOGLOBIN 13.3 g/dL (13.5-17.5); MCH 29.8 pg (26.0-34.0); MCHC 33.3 g/dL (31.0-37.0); MEAN PLATELET VOLUME 10.4 fL (7.4-10.4); PLATELET COUNT 186 10x3/uL (130-400); RBC 4.47 10x6/uL (4.20-6.10); RDW 13.2 % (11.5-14.5); WBC 8.5 10x3/uL (4.8-10.8)
[2018-10-25 14:27] LABS: MCV 89.3 fL (80.0-100.0)
[2018-10-25 14:45] LABS: ALBUMIN 3.1 g/dL (3.4-5.0); ANION GAP 13.1 mmol/L (8-16); BILIRUBIN - TOTAL 0.22 mg/dL (0.2-1.3); CALCIUM 8.4 mg/dL (8.5-10.1); CARBON DIOXIDE 26.6 mmol/L (21.0-32.0); POTASSIUM - SERUM 4.7 mmol/L (3.5-5.1); PROTEIN - SERUM 5.8 g/dL (6.4-8.2)
[2018-10-25 14:52] LABS: CREATININE - SERUM 1.2 mg/dL (0.6-1.3)
[2018-10-25 15:53] LABS: EOSINOPHILS 1 % (0-7); LYMPHOCYTES 28 % (15-50); MONOCYTES 2 % (2-11); NEUTROPHILS 69 % (40-80); PLATELET ESTIMATE NORMAL
[2018-10-25 15:56] VITALS: BP 104/60
--- NOTE | 2018-10-25 19:30 | NUR ---
PT ASKING FOR PAIN MEDS WHILE REPORT OCCURRING. AT THE SAME TIME HE WAS HEADING OUTSIDE TO GET "FRESH AIR" WITH HIS . INSTRUCTED PT THAT PAIN MEDS WOULD BE GIVEN WHEN HE RETURNED FROM OUTSIDE. WHEN PT RETURNED TO ROOM, HAD TO RESITE IV THAT WAS NO LONGER EVEN IN HIS WRIST TO LEFT HAND AND THEN GAVE MORPHINE 4MG SIVP.
[2018-10-25 20:00] VITALS: BP 147/69
--- NOTE | 2018-10-25 21:00 | NUR ---
PT ASKING AGAIN FOR PAIN MEDICATION. EXPLAINED THAT HE ONLY JUST RECIEVED A DOSE AND IT WAS EVERY 3 HOURS. PT THEN ARGUING WITH HIS IN ROOM AND THEN SHE WAS GONE.
--- NOTE | 2018-10-25 22:00 | NUR ---
BEDTIME MEDS GIVEN. FSBS 212 AND PT AGREED TO LANTUS, BUT DECLINED HIS SLIDING SCALE BECAUSE IT WOULD "BOTTOM" HIM OUT BY MORNING. PT ALSO REQUESTING SNACKS AND DRINKS. BOTH PROVIDED. AGAIN ASKING FOR PAIN MEDS, INFORMED IT WOULD BE 2230 BEFORE HIS NEXT DOSE. PT ASKED IF HE SHOULD CALL NURSE TO REMIND HER TO BRING IT. INSTRUCTED PT THAT MEDICATION WOULD BE GIVEN AT 2230.
--- NOTE | 2018-10-25 23:27 | NUR ---
PT CALLED FOR ADDITIONAL PAIN MEDS. STATES HE NEEDS MORE, THAT IT DID NOT WORK. EXPLAINED TO PATIENT THAT HE CAN ONLY HAVE MORPHINE EVERY 3 HOURS AND IT HAS ONLY BEEN ONE HOUR SINCE HE RECIEVED A DOSE. OFFERED PT A NITRO TAB FOR CHEST PAIN. PT DECLINED SAYING HE NEEDED PAIN MEDICATION. SR/61 PER TELEMETRY. WILL MONITOR AND PROVIDE PAIN MEDICATIONS ORDERED.
--- NOTE | 2018-10-26 01:05 | NUR ---
PT HAS BEEN WATCHING TV WITH NO C/O UNTIL NOW. BACK INTERLOCKING MACHINE OPERATOR LIGHT. DEMANDING PAIN MED. INSTRUCTED THAT IT IS STILL NOT DUE UNTIL 129 AND WILL BE GIVEN AT THAT TIME. PT VERY ANGRY. WILL MEDICATE ORDERED. SR PER TELEMETRY.
--- NOTE | 2018-10-26 01:31 | NUR ---
ADMINISTERED MORPHINE 4MG SIVP AT THIS TIME. PT'S HAS RETURNED TO ROOM FROM BEING SEEN IN ER FOR HER OWN MEDICAL NEEDS. PT ALERT/TELLING THIS NURSE HOW SORRY HE WAS FOR "GETTING MEAN" WITH HER BUT THAT HE JUST "HURTS SO BAD". SOON MORPHINE GIVEN, PT TELLS NURSE HE IS GOING OUTSIDE WITH TO "GET SOME FRESH AIR". MONITOR AND CPOC.
--- NOTE | 2018-10-26 02:55 | NUR ---
PT NOW BACK IN ROOM AND RESTING. AT BEDSIDE.
[2018-10-26 04:00] VITALS: BP 98/50
--- NOTE | 2018-10-26 04:45 | NUR ---
OUT TO NURSE SAYING "SOM IS HURTING AGAIN". PT STATES PAIN 10/10 IN CHEST AREA AND HE IS "HURTING REAL BAD" AND "JUST CAN'T STAND IT". PT HAS BEEN OUTSIDE TWICE SINCE LAST DOSE OF IV MORPHINE GIVEN. PT ALSO WANTING A FOOD TRAY OR SNACK. SAYING HE JUST NEEDS FOOD SO BAD. PUDDING GIVEN.
[2018-10-26 05:08] LABS: BASOPHILS 0.3 % (0-2); EOSINOPHILS 2.5 % (0-7); HEMATOCRIT 41.8 % (42.0-54.0); HEMOGLOBIN 14.4 g/dL (13.5-17.5); IMMATURE GRANULOCYTES 0.3 % (0-5); LYMPHOCYTES 26.1 % (15-50); MCHC 34.4 g/dL (31.0-37.0); MCV 87.1 fL (80.0-100.0); MEAN PLATELET VOLUME 10.6 fL (7.4-10.4); MONOCYTES 9.9 % (2-11); NEUTROPHILS 60.9 % (40-80); PLATELET COUNT 201 10x3/uL (130-400); RDW 13.2 % (11.5-14.5)
[2018-10-26 05:14] LABS: CALC OSMOLALITY 283 mosm/kg (275-300); CALCIUM 8.9 mg/dL (8.5-10.1); CARBON DIOXIDE 25.6 mmol/L (21.0-32.0); CHLORIDE - SERUM 104 mmol/L (98-107); GLUCOSE 141 mg/dL (74-106); POTASSIUM - SERUM 4.3 mmol/L (3.5-5.1); SODIUM 139 mmol/L (136-145); UREA NITROGEN 24 mg/dL (7-18); eGFR NON AFRICAN AMERICAN 81 mL/min (90-120)
[2018-10-26 08:18] VITALS: BP 131/85
--- NOTE | 2018-10-26 09:17 | NUR ---
TELEMETRY SR. UP [facility] IN W/C WITH AT SIDE. WILL CONT. PLAN OF CARE.
--- NOTE | 2018-10-26 12:15 | NUR ---
IV 20 GAUGE STARTED TO RIGHT AC AND FLUSHED WITH NS. LINE IS PATENT.
--- NOTE | 2018-10-26 13:36 | NUR ---
LEAVING FOR CTA BY W/C.
[2018-10-26 19:50] VITALS: BP 118/61
--- NOTE | 2018-10-26 20:15 | NUR ---
PT'S OUT TO NURSES STATION DURING REPORT SAYING HER NEEDED HIS PAIN MED NOW. MEDICATED WITH MORPHINE 4MG SIVP + PHENERGAN ORAL AT 1915. PT LAYING UP IN BED. SAYING HE IS JUST HURTING SO BAD AND HE NEEDS MORE MEDS THAN IS BEING GIVEN.
--- NOTE | 2018-10-26 22:02 | NUR ---
PT HAS EATEN SEVERAL SNACKS. NOW OUTSIDE WITH GETTING "FRESH AIR".
--- NOTE | 2018-10-26 23:04 | NUR ---
OUT TO STATION AFTER PT AND SHE RETURNED FROM BEING OUTSIDE. STATES "SOM WANTS HIS MEDICINE". IV MORPHINE 4MG SIVP GIVEN FOR WHAT PT DESCRIBES CONSTANT CHEST PAIN 1010.
[2018-10-26 23:55] VITALS: BP 125/68
[2018-10-27 03:55] VITALS: BP 107/62
[2018-10-27 04:48] LABS: BASOPHILS 0.4 % (0-2); EOSINOPHILS 2.5 % (0-7); HEMATOCRIT 39.8 % (42.0-54.0); HEMOGLOBIN 13.4 g/dL (13.5-17.5); LYMPHOCYTES 28.8 % (15-50); MCH 29.6 pg (26.0-34.0); MCHC 33.7 g/dL (31.0-37.0); MCV 88.1 fL (80.0-100.0); MEAN PLATELET VOLUME 9.8 fL (7.4-10.4); MONOCYTES 8.8 % (2-11); NEUTROPHILS 59.5 % (40-80); PLATELET COUNT 188 10x3/uL (130-400); RBC 4.52 10x6/uL (4.20-6.10); RDW 13.2 % (11.5-14.5); WBC 7.1 10x3/uL (4.8-10.8)
[2018-10-27 04:56] LABS: ANION GAP 10.1 mmol/L (8-16); CREATININE - SERUM 1.1 mg/dL (0.6-1.3); POTASSIUM - SERUM 4.1 mmol/L (3.5-5.1)
[2018-10-27 08:10] VITALS: BP 124/81
[2018-10-27] MEDS ORDERED: MIRALAX17 GM PO (10:04)
--- NOTE | 2018-10-27 10:48 | NUR ---
IV AND TELEMETRY DCD. DC PLANS GIVEN. UNDERSTANDING VOICED. ESCORTED TO CAR BY W/C.
--- NOTE | 2018-10-28 08:52 | MORECARE ---
CASE MANAGEMENT DISCHARGE SUMMARY PATIENT: GALINA HEBERT UNIT: [id number] ADM DATE: 10/24/18 AGE: 57 : 56 SEX: M ROOM/BED: D.2115 AUTHOR: VIRGINIE FERGUSON PHYSICIAN: REFERRING PHYSICIAN: MARIA T SURESH MD DATE OF SERVICE: 10/28/18 Discharge Plan Patient Name: GALINA HEBERT Facility: [facility]:[place] : 1960 Planned Disposition: Home Anticipated Discharge Date: 10/27/18 Discharge Date: 10/27/2018 Expected LOS: 3 Initial Reviewer: [email or web address] Initial Review Date: 10/28/2018 Generated: 10/28/18 9:52 am Patient Name: GALINA HEBERT Page 81498 at 0852 All edits/amendments must be made on the electronic document DICTATION DATE: 10/28/18 0852 CHILD DAY CARE PROVIDER: NIKOLAI 10/28/18 0852 RPT#: [id number] DC DATE:10/27/18 STATUS: DIS IN [facility] [address] [place] [address] END OF REPORT
--- NOTE | 2018-10-29 12:26 | CN ---
PATIENT NAME:GALINA HEBERT MEDICAL RECORD: [id number] : 56 LOCATION:[facility].2115 ADMIT DATE: 10/24/18 ACCOUNT: [id number] CONSULTING PHYSICIAN: REMY SANTOS MD REFERRING PHYSICIAN: MARIA T SURESH MD DATE OF CONSULTATION: 10/24/2018 HISTORY OF PRESENT ILLNESS: A 57-year-old gentleman, recently underwent intervention to a high ramus/OM branch approximately 2 days ago, had presented back to the hospital with chest pain, this is somewhat atypical, dull ache with occasionally sharp exacerbations, reports also having some emesis, marked nausea. Cardiac enzymes are negative times 2 at this point. ECG is without acute change. We are asked to see him concerning his cardiovascular status. PAST MEDICAL HISTORY: Includes history of peripheral vascular disease status post bilateral BKAs; coronary artery disease, status post intervention; most recent OM; diabetes mellitus. MEDICATIONS: Include Plavix 75 every day, carvedilol 3.125 every day, atorvastatin 80 every day, Imdur 30 mg p.o. every day, Lisinopril 20 mg p.o. every day, aspirin 81 mg every day, Carafate 1 gm q.i.d., insulin per scale, Glucophage 1 gm b.i.d. ALLERGIES: HYDROCODONE, PENICILLIN. SOCIAL HISTORY: Nondrinker, smokes about a pack a day. His affect. Easily takes care of most of his ADLs despite bilateral BKAs. REVIEW OF SYSTEMS: The patient reports easy bruising but reports no swollen glands. The patient reports no fever, no night sweats, no significant weight gain, no significant weight loss. No significant exercise tolerance. The patient reports no dry eyes, no irritation, no vision change. Patient reports no difficulty hearing and no ear pain. Patient reports no frequent nose bleeds or nose and sinus problems. Patient reports on arm pain on exertion. No shortness of breath while lying down. No history of heart murmur. Patient reports no cough, no wheezing or coughing up blood. Patient reports no abdominal pain, no vomiting. Normal appetite. No diarrhea and not vomiting blood. No nausea and no constipation. Patient reports no incontinence. No difficulty urinating. No hematuria. No increased frequency. Patient reports no muscle aches. No weakness, no arthralgias, no back pain. No swelling of the extremities. Patient reports no abnormal mole, no jaundice, no rashes. Reports no loss of consciousness. No weakness and no numbness. No seizures, dizziness, or headaches. The patient reports no depression, no sleep disturbance, feeling safe in a relationship and no alcohol abuse. Patient reports on fatigue. Reports no runny nose or sinus pressure. No itching, no hives, and no frequent sneezing. PHYSICAL EXAMINATION: GENERAL: Pleasant gentleman in no acute distress. VITAL SIGNS: Blood pressure 81/50, pulse 59, regular. HEENT: Normocephalic, atraumatic. NECK: No JVD or bruit. HEART: Regular. LUNGS: Prolonged expiratory phase. Few expiratory wheezes. ABDOMEN: Soft, nontender. CONSULT REPORT [id number] GALINA HEBERT EXTREMITIES: Show well-healed bilateral BKA scar. DIAGNOSTIC DATA: ECG without acute change. IMPRESSION: Doubt acute thrombosis, closure, etc, strickly in view of no ECG changes. Could consider workup for the etiology of chest pain at this point. TRANSINT:[id number] Voice Confirmation ID: [id number] DOCUMENT ID: [id number] REMY SANTOS MD at 1226 CC: [id number] DICTATION DATE: 10/24/18 0853 CHANGE MANAGEMENT CONSULTANT: 10/24/18 1111 DIS IN 10/27/18 [place] [id number] [place] [address]
== END 2018-10-27 10:49 | disposition home or self-care (01) ==
LOC: D.ER 01:29 → OBSVTIME 03:23 → D.M2 03:23
PROVIDERS: Emergency Medicine; ADMIT Internal Medicine Nephrology; ATTEND Internal Medicine Nephrology
DX: R07.89 Other chest pain (principal); I25.118 Atherosclerotic heart disease of native coronary artery with other forms of angina pectoris; I10 Essential (primary) hypertension; E78.5 Hyperlipidemia, unspecified; J44.9 Chronic obstructive pulmonary disease, unspecified; E11.51 Type 2 diabetes mellitus with diabetic peripheral angiopathy without gangrene; I70.202 Unspecified atherosclerosis of native arteries of extremities, left leg; K21.9 Gastro-esophageal reflux disease without esophagitis; F17.213 Nicotine dependence, cigarettes, with withdrawal; K59.00 Constipation, unspecified

== ENCOUNTER 2018-11-08 21:43 | Emergency (ER) | payer MEDICAID ==
[~2018-11-08] VITALS: Ht 172.7 cm; Wt 80.5 kg
[~2018-11-08 21:43] MED LIST changes: +MIRALAX17 GM PO
[2018-11-08 21:52] VITALS: Ht 172.7 cm; Wt 80.5 kg
[2018-11-08 22:08] LABS: BASOPHILS 0.2 % (0-2); HEMATOCRIT 44.7 % (42.0-54.0); HEMOGLOBIN 16.1 g/dL (13.5-17.5); IMMATURE GRANULOCYTES 0.2 % (0-5); LYMPHOCYTES 21.9 % (15-50); MCV 83.4 fL (80.0-100.0); MEAN PLATELET VOLUME 10.3 fL (7.4-10.4); MONOCYTES 7.7 % (2-11); RBC 5.36 10x6/uL (4.20-6.10); RDW 12.8 % (11.5-14.5); WBC 10.4 10x3/uL (4.8-10.8)
[2018-11-08 22:10] LABS: PLATELET COUNT 250 10x3/uL (130-400)
[2018-11-08 22:16] LABS: APTT 29.2 SECONDS (22.8-39.4); PROTIME 12.7 SECONDS (11.6-15.0)
[2018-11-08 23:00] LABS: ALBUMIN 4.3 g/dL (3.4-5.0); ALKALINE PHOSPHATASE 70 U/L (46-116); ALT (SGPT) 19 U/L (10-68); BILIRUBIN - TOTAL 0.51 mg/dL (0.2-1.3); CALC OSMOLALITY 278 mosm/kg (275-300); CALCIUM 9.5 mg/dL (8.5-10.1); CARBON DIOXIDE 25.6 mmol/L (21.0-32.0); CHLORIDE - SERUM 98 mmol/L (98-107); POTASSIUM - SERUM 3.9 mmol/L (3.5-5.1); PROTEIN - SERUM 7.6 g/dL (6.4-8.2); SODIUM 136 mmol/L (136-145); UREA NITROGEN 13 mg/dL (7-18); eGFR NON AFRICAN AMERICAN 81 mL/min (90-120)
[2018-11-08 23:01] LABS: GLUCOSE 229 mg/dL (74-106)
[2018-11-08 23:23] LABS: CREATINE KINASE 71 UL (21-232); MAGNESIUM - SERUM 1.9 mg/dL (1.8-2.4); TROPONIN-I < 0.017 ng/mL (0.000-0.060)
[2018-11-08 23:24] LABS: CKMB 2.3 U/L (0.0-3.6)
[2018-11-09 00:05] VITALS: BP 137/77
== END 2018-11-09 00:05 | disposition home or self-care (01) ==
LOC: D.ER 21:43
PROVIDERS: Emergency Medicine
DX: R07.9 Chest pain, unspecified (principal)

== ENCOUNTER 2019-03-24 16:13 | Inpatient (IN) | payer MEDICAID ==
[~2019-03-24] VITALS: Ht 172.7 cm; Wt 81.6 kg
[2019-03-24 17:37] LABS: BASOPHILS 0.2 % (0-2); EOSINOPHILS 1.4 % (0-7); HEMATOCRIT 45.2 % (42.0-54.0); HEMOGLOBIN 15.4 g/dL (13.5-17.5); IMMATURE GRANULOCYTES 0.2 % (0-5); LYMPHOCYTES 23.9 % (15-50); MCH 30.1 pg (26.0-34.0); MCHC 34.1 g/dL (31.0-37.0); MCV 88.3 fL (80.0-100.0); MEAN PLATELET VOLUME 10.2 fL (7.4-10.4); MONOCYTES 7.3 % (2-11); PLATELET COUNT 236 10x3/uL (130-400); RBC 5.12 10x6/uL (4.20-6.10); WBC 8.4 10x3/uL (4.8-10.8)
[2019-03-24 17:42] VITALS: BP 119/66
[2019-03-24 17:49] VITALS: BP 114/64
--- NOTE | 2019-03-24 17:52 | NUR ---
PT TO CT NOW
[2019-03-24 17:58] LABS: ALBUMIN 3.6 g/dL (3.4-5.0); ALKALINE PHOSPHATASE 70 U/L (46-116); ALT (SGPT) 12 U/L (10-68); BILIRUBIN - TOTAL 0.31 mg/dL (0.2-1.3); CALC OSMOLALITY 290 mosm/kg (275-300); CALCIUM 8.7 mg/dL (8.5-10.1); CARBON DIOXIDE 26.9 mmol/L (21.0-32.0); CHLORIDE - SERUM 100 mmol/L (98-107); POTASSIUM - SERUM 4.5 mmol/L (3.5-5.1); PROTEIN - SERUM 6.4 g/dL (6.4-8.2); SODIUM 135 mmol/L (136-145); UREA NITROGEN 19 mg/dL (7-18); eGFR NON AFRICAN AMERICAN 81 mL/min (90-120)
[2019-03-24 18:02] LABS: GLUCOSE 446 mg/dL (74-106)
[2019-03-24 19:20] VITALS: BP 140/81
[2019-03-24 19:42] LABS: APPEARANCE CLEAR (CLEAR); BILIRUBIN NEGATIVE (NEGATIVE); COLOR YELLOW (YELLOW); GLUCOSE NEGATIVE (NEGATIVE); KETONE NEGATIVE (NEGATIVE); NITRITE NEGATIVE (NEGATIVE); PROTEIN NEGATIVE (NEGATIVE); SPECIFIC GRAVITY 1.015 (1.005-1.020); UROBILINOGEN NORMAL (NORMAL)
--- NOTE | 2019-03-24 20:59 | NUR ---
WOUND CULTURE SENT TO LAB.
[2019-03-24 21:01] VITALS: BP 136/77
--- NOTE | 2019-03-24 21:30 | NUR ---
PT PROVIDED WITH WATER.
--- NOTE | 2019-03-24 22:48 | NUR ---
FSBS 361.
--- NOTE | 2019-03-24 23:00 | NUR ---
MERREM INFUSION COMPLETE AT THIS TIME.
[2019-03-25] VITALS (7 sets, daily range): BP systolic 88–156; BP diastolic 52–78; Ht 172.7 cm; Wt 81.6 kg
--- NOTE | 2019-03-25 07:00 | NUR ---
PT IS RESTING IN BED WITH EYES CLOSED. RESPIRATIONS ARE EVEN AND UNLABORED. PT IS EASILY AROUSED WITH VERBAL STIMULATION. PT AT BEDSIDE. PT REPORTS PAIN 10/10 TO RIGHT STUMP. PT WITH BILATERAL BKA. REDNESS/WARMTH/TENDERNESS NOTED TO RIGHT STUMP. PT DENES PRESENCE OF N/V AT THIS TIME. PT IS AAO X 4. BED IS IN THE LOWEST POSITION. CALL LIGHT AND BEDSIDE TABLE ARE WITHIN REACH. SIDE RAILS X 2. PT DENIES FURTHER NEEDS. WILL CONT TO MONITOR.
[2019-03-25 09:16] LABS: CALC OSMOLALITY 286 mosm/kg (275-300); CALCIUM 8.1 mg/dL (8.5-10.1); CARBON DIOXIDE 28.1 mmol/L (21.0-32.0); CHLORIDE - SERUM 103 mmol/L (98-107); CREATININE - SERUM 0.9 mg/dL (0.6-1.3); GLUCOSE 298 mg/dL (74-106); POTASSIUM - SERUM 4.9 mmol/L (3.5-5.1); SODIUM 137 mmol/L (136-145); UREA NITROGEN 19 mg/dL (7-18); eGFR NON AFRICAN AMERICAN > 90 mL/min (90-120)
[2019-03-25 09:19] LABS: BASOPHILS 0.3 % (0-2); EOSINOPHILS 1.7 % (0-7); HEMATOCRIT 43.1 % (42.0-54.0); HEMOGLOBIN 14.5 g/dL (13.5-17.5); IMMATURE GRANULOCYTES 0.1 % (0-5); LYMPHOCYTES 26.7 % (15-50); MCH 29.8 pg (26.0-34.0); MCHC 33.6 g/dL (31.0-37.0); MCV 88.7 fL (80.0-100.0); MEAN PLATELET VOLUME 10.2 fL (7.4-10.4); MONOCYTES 8.1 % (2-11); NEUTROPHILS 63.1 % (40-80); PLATELET COUNT 202 10x3/uL (130-400); RBC 4.86 10x6/uL (4.20-6.10); RDW 13.1 % (11.5-14.5); WBC 7.8 10x3/uL (4.8-10.8)
--- NOTE | 2019-03-25 11:03 | NUR ---
PT REQUESTS TO REMOVE HYDROCODE ALLERGY. PT STATES "I DONT KNOW WHY THEY PUT THAT ON MY LIST AN ALLERGY. I TOOK IT THE LAST TIME I WAS IN HERE AND EVERYTHING WAS FINE. TAKE THAT OFF OF MY ALLERGY LIST". ALLERGY REMOVED FROM PT LIST.
--- NOTE | 2019-03-25 16:20 | NUR ---
PT IS UPSET AND YELLING PROFANITY LOUDLY THAT IS AUDIBLE AT NURSES DESK. PT STATES THAT HE HAS NOT BEEN INFORMED OF ANY SURGERY AND WOULD LIKE TO SPEAK WITH THE DR THAT WILL BE PERFORMING OPERATION TO GET A BETTER UNDERSTANDING OF OPERATION. PT INFORMED OF NPO STATUS AND PT IS IRRITATED AT THE INABILITY TO EAT/DRINK RIGHT NOW. CALL PLACED TO DR MONTOYA TO VERIFY NPO ORDER AND NOTIFY OF PT REQUEST TO SPEAK WITH HIM.
--- NOTE | 2019-03-25 17:40 | NUR ---
PT IS REFUSING TO SIGN ANESTHESIA CONSENT AT THIS TIME. PT STATES "I ALREADY TALKED WITH THE DR AND TOLD HIM THAT I WAS AWAKE FOR BOTH OF THE THESE AMPUTATION AND I DONT WANT TO BE PUT TO SLEEP". ALL OTHER CONSENTS ARE SIGNED BY PT AND PT DENIES FURTHER QUESTIONS/CONCERNS AT THIS TIME.
--- NOTE | 2019-03-25 19:20 | NUR ---
IN BED WITH FAMILY AT BEDSIDE, VERY ARGUMENTATIVE WITH STAFF OVER GETTING VITAL SIGNS OR PROVIDING CARE, THIS NURSE ENCOURAGED HIM TO AT LEAST LET US GET HIS BLOOD PRESSURE TO BE ABLE TO GIVE HIM PAIN MANAGEMENT, HE COMPLIED WITH THAT REQUEST.
--- NOTE | 2019-03-25 20:40 | NUR ---
REQUESTED MEDICATION FOR PAIN AND NAUSEA, GIVEN PER AUG. REFUSED BLOOD SUGAR CHECK, WILL ATTEMPT TO TRY AGAIN LATER THIS SHIFT, VERY UNPLEASANT AT TIMES. WILL NOTE ANY CHANGE.
--- NOTE | 2019-03-26 00:22 | NUR ---
I have reviewed this patient and I concur with the Shift Assessment completed by the Licensed Practical Nurse today this shift.
[2019-03-26 01:15] VITALS: BP 154/78
[2019-03-26 05:02] VITALS: BP 150/74
[2019-03-26 05:59] LABS: BASOPHILS 0.3 % (0-2); EOSINOPHILS 1.7 % (0-7); HEMATOCRIT 40.9 % (42.0-54.0); HEMOGLOBIN 13.6 g/dL (13.5-17.5); IMMATURE GRANULOCYTES 0.1 % (0-5); LYMPHOCYTES 15.9 % (15-50); MCH 29.4 pg (26.0-34.0); MCHC 33.3 g/dL (31.0-37.0); MCV 88.3 fL (80.0-100.0); MEAN PLATELET VOLUME 10.1 fL (7.4-10.4); MONOCYTES 7.4 % (2-11); NEUTROPHILS 74.6 % (40-80); PLATELET COUNT 192 10x3/uL (130-400); RBC 4.63 10x6/uL (4.20-6.10); WBC 7.2 10x3/uL (4.8-10.8)
[2019-03-26 06:34] LABS: CALC OSMOLALITY 285 mosm/kg (275-300); CALCIUM 8.3 mg/dL (8.5-10.1); CARBON DIOXIDE 27.5 mmol/L (21.0-32.0); CHLORIDE - SERUM 105 mmol/L (98-107); CREATININE - SERUM 0.9 mg/dL (0.6-1.3); GLUCOSE 228 mg/dL (74-106); POTASSIUM - SERUM 4.5 mmol/L (3.5-5.1); SODIUM 139 mmol/L (136-145); UREA NITROGEN 14 mg/dL (7-18); eGFR NON AFRICAN AMERICAN > 90 mL/min (90-120)
[2019-03-26 08:22] VITALS: BP 124/61
--- NOTE | 2019-03-26 09:37 | NUR ---
RECEIVED PATIENT BACK FROM SURGERY AND WAS ADVISED PT WILL HAVE SURGERY TOMORROW DUE TO BEING NAUSEOUS AND VOMITING. NO OTHER NEEDS AT THIS TIME, CONTINUE WITH PLAN OF CARE
--- NOTE | 2019-03-26 16:01 | NUR ---
I have reviewed this patient and I concur with the Shift Assessment completed by the Licensed Practical Nurse today this shift.
--- NOTE | 2019-03-26 16:42 | NUR ---
PATIENT SPOUSE CAME TO DESK FOR PAIN MEDICATION, PT IS AN HOUR EARLY ADVISED UNABLE TO ADMINISTER UNTIL TIME, PT STATED HE WANTED TO SPEAK TO GLASS SILVERER, MARANDA KEYES RN SPEAK TO PATIENT MARKETING ANALYTICS LEAD IN MEETING.
--- NOTE | 2019-03-26 19:55 | NUR ---
SITTING UP IN BED TALKING TO VISITOR. RATES PAIN IN RLE 9. JUST RECEIVED NORCO PRIOR TO SHIFT CHANGE. NS @ 75 MLHR INFUSING IN RT UPPER ARM WITHOUT DIFF. BILAT AMPUTEE WITH SCAB NOTED TO RT STUMP, DARK AREA NOTED TO LT STUMP. ALERT AND ORIENTED X4. OUZINKIE. RESP NONLABORED. INFORMED OF NPO AFTER MIDNIGHT AND HE VERBALIZED UNDERSTANDING. CL IN REACH.
[2019-03-26 20:34] VITALS: BP 151/81
--- NOTE | 2019-03-26 21:11 | NUR ---
IV LEAKING IN RT UPPER ARM. IV CATH REMOVED. 22G INSERTED IN RT FOREARM X1 ATTEMPT. MEDICATED WITH MORPHINE AND ZOFRAN PER REQUEST. RATES PAIN 10. CL IN REACH.
[2019-03-27 00:41] VITALS: BP 160/84
--- NOTE | 2019-03-27 01:37 | NUR ---
MEDICATED WITH MORPHINE AND ZOFRAN FOR C/O PAIN IN RT LEG. RESP EVEN AND NONLABORED. PT UPSET BECAUSE IV HAD BEEN ALARMING FOR A FEW MINUTES. INFORMED PT THAT STAFF WAS WITH ANOTHER PT AND APOLOGIZED. HE STATES, "YOU NEED TO GET MORE HELP".
--- NOTE | 2019-03-27 03:28 | NUR ---
RESTING WITH EYES CLOSED. RESP NONLABORED. NO DISTRESS. CL IN REACH.
--- NOTE | 2019-03-27 04:40 | NUR ---
HIBACLEANZ OFFERED BY ABRASIVE SAWYER AND PT REFUSED. STATES HE DOESNT WANT IT RIGHT NOW.
--- NOTE | 2019-03-27 05:40 | NUR ---
MEDICATED WITH MORPHINE AND ZOFRAN FOR C/O PAIN IN RLE. OFFERED HIBACLEANZ AGAIN AND PT REFUSED. NONCOMPLIANT. STATES, "I TOOK ONE YESTERDAY." ATTEMPTED TO EXPLAIN WHY HE NEEDED ONE TODAY AND HE STATED, "I'LL DO IT LATER.".
[2019-03-27 06:14] LABS: BASOPHILS 0.1 % (0-2); EOSINOPHILS 2.8 % (0-7); HEMATOCRIT 40.3 % (42.0-54.0); HEMOGLOBIN 13.5 g/dL (13.5-17.5); IMMATURE GRANULOCYTES 0.1 % (0-5); LYMPHOCYTES 27.6 % (15-50); MCH 29.5 pg (26.0-34.0); MCHC 33.5 g/dL (31.0-37.0); MEAN PLATELET VOLUME 10.1 fL (7.4-10.4); MONOCYTES 8.4 % (2-11); PLATELET COUNT 194 10x3/uL (130-400); RBC 4.58 10x6/uL (4.20-6.10); WBC 6.9 10x3/uL (4.8-10.8)
--- NOTE | 2019-03-27 06:15 | NUR ---
JOSE OFFERED TO DO HIBACLEANZ AND HE REFUSED AGAIN.
[2019-03-27 06:23] LABS: CALC OSMOLALITY 287 mosm/kg (275-300); CALCIUM 8.4 mg/dL (8.5-10.1); CARBON DIOXIDE 29.9 mmol/L (21.0-32.0); CHLORIDE - SERUM 107 mmol/L (98-107); CREATININE - SERUM 0.8 mg/dL (0.6-1.3); POTASSIUM - SERUM 4.4 mmol/L (3.5-5.1); SODIUM 143 mmol/L (136-145); UREA NITROGEN 12 mg/dL (7-18); eGFR NON AFRICAN AMERICAN > 90 mL/min (90-120)
[2019-03-27 06:25] LABS: GLUCOSE 144 mg/dL (74-106)
--- NOTE | 2019-03-27 08:06 | NUR ---
AWAKE AND ALERT. ORIENTED X3. C/O INTENSE PAIN TO RIGHT LEG THIS AM. WILL MONITOR. TO EARLY FOR PRN'S. LUNGS HAVE FAINT CRACKLES THROUGHOUT, OCCASSIONAL PRODUCTIVE COUGH REPORTED. SKIN IS INTACT WTIHOUT REDNESS EXCEPT SCABBED AREA TO RIGHT BKA. IV TO RIGHT FOREARM IS PATETN WTIHOUT REDNESS AT INSERTION SITE.SIGNIFICANT OTHER AT BEDSIDE. DENIES NEEDS.
--- NOTE | 2019-03-27 08:35 | NUR ---
DR. MONTOYA HERE AND CANCELLED SURGERY. REQUESTED AND GIVEN ONE HYDROCODONE PO FOR C/O RIGHT BKA PAIN LEVEL 10. WILL MONITOR.
--- NOTE | 2019-03-27 10:00 | NUR ---
SITTING UP ON SIDE OF BED EATING BREAKFAST. DENIES NEEDS. SIGNIFICANT OTHER AT BEDSIDE.
--- NOTE | 2019-03-27 11:30 | MORECARE ---
CASE MANAGEMENT DISCHARGE SUMMARY PATIENT: GALINA HEBERT UNIT: [id number] ADM DATE: 03/24/19 AGE: 58 : 56 SEX: M ROOM/BED: D.2231 AUTHOR: VIRGINIE FERGUSON PHYSICIAN: REFERRING PHYSICIAN: MARIA T SURESH MD DATE OF SERVICE: 03/27/19 Discharge Plan Patient Name: GALINA HEBERT [facility] [facility] 1960 Planned Disposition: Inpatient Rehab Anticipated Discharge Date: Discharge Date: Expected LOS: Initial Reviewer: [email or web address] Initial Review Date: 03/27/2019 Generated: 03/27/19 12:29 pm DCPIA - Discharge Planning Initial Assessment Updated by [email or web address]: Keara Wang on 03/27/19 11:27 am * Is the patient Alert and Oriented? Yes * PCP None * Pharmacy [facility] [address] * Preadmission Environment Home with Family * ADLs Partial Dependent * Partial ADLs (Assistance needed) Ambulation * Equipment Other Wheelchair * Other Equipment Left BKA prosthesis * List name and contact numbers for known caregivers / representatives who currently or will assist patient after discharge: Balaji Hebert - son - [phone] * Verbal permission to speak to the caregivers and representatives has been obtained from the patient. Yes * Community resources currently utilized None * Additional services required to return to the preadmission environment? Yes * Can the patient safely return to the preadmission environment? No * Has this patient been hospitalized within the prior 30 days at any hospital? No Patient Name: GALINA HEBERT Page 87215 at 1130 All edits/amendments must be made on the electronic document DICTATION DATE: 03/27/19 112 BOILERMAKER: NIKOLAI 03/27/19 112 RPT#: [id number] DC DATE: STATUS: ADM IN [facility] [address] [place] [address] END OF REPORT
--- NOTE | 2019-03-27 11:36 | MORECARE ---
CASE MANAGEMENT DISCHARGE SUMMARY PATIENT: GALINA HEBERT UNIT: [id number] ADM DATE: 03/24/19 AGE: 58 : 56 SEX: M ROOM/BED: D.2231 AUTHOR: PHYLLIS,DOC PHYSICIAN: REFERRING PHYSICIAN: MARIA T SURESH MD DATE OF SERVICE: 03/27/19 Discharge Plan Patient Name: GALINA HEBERT Facility: [facility]:[place] : 1960 Planned Disposition: Inpatient Rehab Anticipated Discharge Date: Discharge Date: Expected LOS: Initial Reviewer: [email or web address] Initial Review Date: 03/27/2019 Generated: 03/27/19 12:36 pm Comments DCP- Discharge Planning Updated by [email or web address]: Keara Wang on 03/27/19 10:[address] Patient Name: GALINA HEBERT Admission Status: ER Accout number: [id number] Admission Date: 03-24-2019 : 1960 Admission Diagnosis: Attending: MARIA T SURESH Current LOS: 3 Anticipated DC Date: Planned Disposition: Inpatient Rehab Primary Insurance: MEDICAID [place] Discharge Planning Comments: CM met with patient and his fianc?e, Therese Potter, in the room to discuss discharge planning. States he has been living with Therese at [facility]. She states they have been paying weekly and will not have any more money until the first of the month. I discussed applying for housing at [facility] and also gave them a list of housing with phone numbers, including [employer] and [employer]. They have lived at [facility] and do not want to return there due to living situation. He does not have a PCP, I provided them with [facility] number to sign up for a PCP in this [facility]. I discussed the availability of supervisor long goods care and he is not willing to give up his check. I discussed [facility] rehab if he has any acute days left and they agree to a referral to [facility]. I spoke with Teena and clinical faxed. Dr. Riojas has asked for possible transfer to [facility] for a transcutaneous O2 level and I spoke with Rea (pump house engineer), Razia Turner in administration and Oumou Davidson. CM will continue to follow and assist with discharge planning/needs. Remote Broadcast Engineer: Keara Wang DCPIA - Discharge Planning Initial Assessment Updated by [email or web address]: Keara Wang on 03/27/19 11:27 am * Is the patient Alert and Oriented? Yes * PCP None * Pharmacy [facility] [address] * Preadmission Environment Home with Family * ADLs Partial Dependent * Partial ADLs (Assistance needed) Ambulation * Equipment Other Wheelchair * Other Equipment Left BKA prosthesis * List name and contact numbers for known caregivers / representatives who currently or will assist patient after discharge: Balaji Hebert - son - [phone] * Verbal permission to speak to the caregivers and representatives has been obtained from the patient. Yes * Community resources currently utilized None * Additional services required to return to the preadmission environment? Yes * Can the patient safely return to the preadmission environment? No * Has this patient been hospitalized within the prior 30 days at any hospital? No Last DP export: 03/27/19 10:30 Patient Name: GALINA HEBERT Page 59907 at 1136 All edits/amendments must be made on the electronic document DICTATION DATE: 03/27/19 1136 RETAIL KEY HOLDER: NIKOLAI 03/27/19 1136 RPT#: [id number] PA DATE: STATUS: ADM IN [facility] [address] [place] [address] END OF REPORT
--- NOTE | 2019-03-27 11:44 | MORECARE ---
CASE MANAGEMENT DISCHARGE SUMMARY PATIENT: GALINA HEBERT UNIT: [id number] ADM DATE: 03/24/19 AGE: 58 : 56 SEX: M ROOM/BED: D.2231 AUTHOR: PHYLLIS,DOC PHYSICIAN: REFERRING PHYSICIAN: MARIA T SURESH MD DATE OF SERVICE: 03/27/19 Discharge Plan Patient Name: GALINA HEBERT Facility: [facility]:[place] : 1960 Planned Disposition: Inpatient Rehab Anticipated Discharge Date: Discharge Date: Expected LOS: Initial Reviewer: [email or web address] Initial Review Date: 03/27/2019 Generated: 03/27/19 12:43 pm Comments DCP- Discharge Planning Updated by [email or web address]: Keara Wang on 03/27/19 10:[address] Patient Name: GALINA HEBERT Admission Status: ER Accout number: [id number] Admission Date: 03-24-2019 : 1960 Admission Diagnosis: Attending: MARIA T SURESH Current LOS: 3 Anticipated DC Date: Planned Disposition: Inpatient Rehab Primary Insurance: MEDICAID [place] Discharge Planning Comments: CM met with patient and his fianc?e, Therese Potter, in the room to discuss discharge planning. States he has been living with Therese at [facility]. She states they have been paying weekly and will not have any more money until the first of the month. I discussed applying for housing at [facility] and also gave them a list of housing with phone numbers, including [employer] and [employer]. They have lived at [facility] and do not want to return there due to living situation. He does not have a PCP, I provided them with [facility] number to sign up for a [facility]. I discussed the availability of buttermaker helper care and he is not willing to give up his check. I discussed [facility] rehab if he has any acute days left and they agree to a referral to [facility]. I spoke with Teena and clinical faxed. Dr. Riojas has asked for possible transfer to [facility] for a transcutaneous O2 level and I spoke with Rea (steffen house supervisor), Razia Turner in administration and Oumou Davidson. CM will continue to follow and assist with discharge planning/needs. Length Control Tester: Keara Wang DCPIA - Discharge Planning Initial Assessment Updated by [email or web address]: Keara Wang on 03/27/19 11:27 am * Is the patient Alert and Oriented? Yes * PCP None * Pharmacy [facility] [address] * Preadmission Environment Home with Family * ADLs Partial Dependent * Partial ADLs (Assistance needed) Ambulation * Equipment Other Wheelchair * Other Equipment Left BKA prosthesis * List name and contact numbers for known caregivers / representatives who currently or will assist patient after discharge: Balaji Hebert - son - [phone] * Verbal permission to speak to the caregivers and representatives has been obtained from the patient. Yes * Community resources currently utilized None * Additional services required to return to the preadmission environment? Yes * Can the patient safely return to the preadmission environment? No * Has this patient been hospitalized within the prior 30 days at any hospital? No External Providers External Provider: [facility] Contact Date: Service Request Date: Service Type: Resolution: Reviewer: Comments: Last DP export: 03/27/19 10:36 Patient Name: GALINA HEBERT Page 04066 at 1144 All edits/amendments must be made on the electronic document DICTATION DATE: 03/27/19 114 BUSINESS INFORMATION CONSULTANT: NIKOLAI 03/27/191142 RPT#: [id number] DC DATE: STATUS: ADM IN [facility] [address] [place] [address] END OF REPORT
--- NOTE | 2019-03-27 12:30 | NUR ---
REQUESTED LUNCH SERVED IN ROOM. EATING WELL.
[2019-03-27 13:09] VITALS: BP 125/56
--- NOTE | 2019-03-27 13:30 | NUR ---
REQUESTED AND GIVEN 4MG MORPHINE SLOW IVP FOR PAIN MANAGEMENT PRIOR TO DRESSING TO RIGHT BKA.
--- NOTE | 2019-03-27 14:00 | NUR ---
TOLERATED DRESSING WITHOUT C/O PAIN. WILL MONITOR.
--- NOTE | 2019-03-27 14:50 | NUR ---
NUTRITION F/U PT TOLERATING REG DIET WITH 100% INTAKE RECENT MEALS. WILL CONTINUE TO HONOR FOOD PREFERENCES, MONITOR PO INTAKE. RD FOLLOWING
--- NOTE | 2019-03-27 14:54 | MORECARE ---
CASE MANAGEMENT DISCHARGE SUMMARY PATIENT: GALINA HEBERT UNIT: [id number] ADM DATE: 03/24/19 AGE: 58 : 56 SEX: M ROOM/BED: D.2231 AUTHOR: PHYLLIS,DOC PHYSICIAN: REFERRING PHYSICIAN: MARIA T SURESH MD DATE OF SERVICE: 03/27/19 Discharge Plan Patient Name: GALINA HEBERT Facility: [facility]:[place] : 1960 Planned Disposition: Inpatient Rehab Anticipated Discharge Date: Discharge Date: Expected LOS: Initial Reviewer: [email or web address] Initial Review Date: 03/27/2019 Generated: 03/27/19 3:54 pm Comments DCP- Discharge Planning Updated by [id number]: Keara Wang on 03/27/19 1:[address] Rea live in housekeeper nanny called and states the transfer center states that [facility] no longer does transcutaneous O2 levels. She asks if Dr. Riojas would like him referred further out for the test. I called Geoffrey Vasquez and he spoke with Dr. Ferrell and stated that he would like patient referred further out to have this test done. I informed Rea and she will notify the transfer center. CM will continue to follow and assist with discharge planning/needs. DCP- Discharge Planning Updated by [email or web address]: Keara Kathleen on 03/27/19 10:[address] Patient Name: GALINA HEBERT Admission Status: ER Accout number: [id number] Admission Date: 03-24-2019 : 1960 Admission Diagnosis: Attending: MARIA T SURESH Current LOS: 3 Anticipated DC Date: Planned Disposition: Inpatient Rehab Primary Insurance: MEDICAID [place] Discharge Planning Comments: CM met with patient and his fianc?e, Therese Potter, in the room to discuss discharge planning. States he has been living with Therese at [facility]. She states they have been paying weekly and will not have any more money until the first of the month. I discussed applying for housing at [facility] and also gave them a list of housing with phone numbers, including [employer] and [employer]. They have lived at [facility] and do not want to return there due to living situation. He does not have a PCP, I provided them with [facility] number to sign up for a PCP in this county. I discussed the availability of lobsterman care and he is not willing to give up his check. I discussed [facility] rehab if he has any acute days left and they agree to a referral to [facility]. I spoke with Teena and clinical faxed. Dr. Riojas has asked for possible transfer to [facility] for a transcutaneous O2 level and I spoke with Rea (live in housekeeper nanny), Razia Turner in administration and Oumou Davidson. CM will continue to follow and assist with discharge planning/needs. Licensing Engineer: Keara Wang DCPIA - Discharge Planning Initial Assessment Updated by [id number]: Keara Wang on 03/27/19 11:27 am * Is the patient Alert and Oriented? Yes * PCP None * Pharmacy [facility] [address] * Preadmission Environment Home with Family * ADLs Partial Dependent * Partial ADLs (Assistance needed) Ambulation * Equipment Other Wheelchair * Other Equipment Left BKA prosthesis * List name and contact numbers for known caregivers / representatives who currently or will assist patient after discharge: Balaji Hebert - son - [phone] * Verbal permission to speak to the caregivers and representatives has been obtained from the patient. Yes * Community resources currently utilized None * Additional services required to return to the preadmission environment? Yes * Can the patient safely return to the preadmission environment? No * Has this patient been hospitalized within the prior 30 days at any hospital? No Last DP export: 03/27/19 10:43 Patient Name: GALINA HEBERT Page 55028 at 5654 All edits/amendments must be made on the electronic document DICTATION DATE: 03/27/191452 RETAIL AND RESTAURANT: NIKOLAI 03/27/191452 RPT#: [id number] CA DATE: STATUS: ADM IN [facility] [address] [place] [address] END OF REPORT
--- NOTE | 2019-03-27 15:00 | NUR ---
SPOKE WITH DR MONTOYA RE PAIN MEDS. NO CHANGES RECEIVED.
--- NOTE | 2019-03-27 15:19 | MORECARE ---
CASE MANAGEMENT DISCHARGE SUMMARY PATIENT: GALINA HEBERT UNIT: [id number] ADM DATE: 03/24/19 AGE: 58 : 56 SEX: M ROOM/BED: D.2231 AUTHOR: PHYLLISDOC PHYSICIAN: REFERRING PHYSICIAN: MARIA T SURESH MD DATE OF SERVICE: 03/27/19 Discharge Plan Patient Name: GALINA HEBERT Facility: [facility]:[place] : 1960 Planned Disposition: Inpatient Rehab Anticipated Discharge Date: Discharge Date: Expected LOS: Initial Reviewer: [email or web address] Initial Review Date: 03/27/2019 Generated: 03/27/19 4:19 pm Comments DCP- Discharge Planning Updated by [email or web address]: Keara Wang on 03/27/19 2:[address] Received a call from kvng Luciavat house laborer, that [facility] in [facility] can do the transcutaneous O2 level as an outpatient procedure by calling [phone]. They will need a referral from the patients primary physician. I informed Eber Castellanos. DCP- Discharge Planning Updated by [id number]: Keara Wang on 03/27/19 1:[address] kvng Luciavat house laborer called and states the transfer center states that [facility] no longer does transcutaneous O2 levels. She asks if Dr. Riojas would like him referred further out for the test. I called Geoffrey Vasquez and he spoke with Dr. Ferrell and stated that he would like patient referred further out to have this test done. I informed Rea and she will notify the transfer center. CM will continue to follow and assist with discharge planning/needs. DCP- Discharge Planning Updated by [id number]: Keara Wang on 03/27/19 10:[address] Patient Name: GALINA HEBERT Admission Status: ER Accout number: [id number] Admission Date: 03-24-2019 : 1960 Admission Diagnosis: Attending: MARIA T SURESH Current LOS: 3 Anticipated DC Date: Planned Disposition: Inpatient Rehab Primary Insurance: MEDICAID [place] Discharge Planning Comments: CM met with patient and his fianc?e, Therese Massstormy, in the room to discuss discharge planning. States he has been living with Therese at [facility]. She states they have been paying weekly and will not have any more money until the first of the month. I discussed applying for housing at [facility] and also gave them a list of housing with phone numbers, including [employer] and [employer]. They have lived at [facility] [address] and do not want to return there due to living situation. He does not have a PCP, I provided them with [facility] number to sign up for a PCP in this county. I discussed the availability of senior living care and he is not willing to give up his check. I discussed [facility] rehab if he has any acute days left and they agree to a referral to [facility]. I spoke with Teena and clinical faxed. Dr. Riojas has asked for possible transfer to [facility] for a transcutaneous O2 level and I spoke with Rea (vat house laborer), Razia Turner in administration and Oumou Davidson. CM will continue to follow and assist with discharge planning/needs. Soft Shoe Dancer: Keara Wang DCPIA - Discharge Planning Initial Assessment Updated by [email or web address]: Keara Wang on 03/27/19 11:27 am * Is the patient Alert and Oriented? Yes * PCP None * Pharmacy [facility] on [facility] [facility] * Preadmission Environment Home with Family * ADLs Partial Dependent * Partial ADLs (Assistance needed) Ambulation * Equipment Other Wheelchair * Other Equipment Left BKA prosthesis * List name and contact numbers for known caregivers / representatives who currently or will assist patient after discharge: Balaji Hebert - son - [phone] * Verbal permission to speak to the caregivers and representatives has been obtained from the patient. Yes * Community resources currently utilized None * Additional services required to return to the preadmission environment? Yes * Can the patient safely return to the preadmission environment? No * Has this patient been hospitalized within the prior 30 days at any hospital? No Last DP export: 03/27/19 1:54 Patient Name: GALINA HEBERT Page [id number] Electronically Signed by [facility] on 03/27/19 at 151 All edits/amendments must be made on the electronic document DICTATION DATE: 03/27/191518 BRIMMER BLOCKER: NIKOLAI 03/27/191518 RPT#: [id number] MD DATE: STATUS: ADM IN [facility] [address] [place] [address] END OF REPORT
--- NOTE | 2019-03-27 15:30 | NUR ---
PATIENT IS VERY UPSET RE PAIN MANAGEMENT. REQUESTED AND GIVEN ONE HYDROCODONE PO AT THIS TIME. WILL MONITOR.
--- NOTE | 2019-03-27 15:43 | MORECARE ---
CASE MANAGEMENT DISCHARGE SUMMARY PATIENT: GALINA HEBERT UNIT: [id number] ADM DATE: 03/24/19 AGE: 58 : 56 SEX: M ROOM/BED: D.2231 AUTHOR: PHYLLIS,DOC PHYSICIAN: REFERRING PHYSICIAN: MARIA T SURESH MD DATE OF SERVICE: 03/27/19 Discharge Plan Patient Name: GALINA HEBERT Facility: [facility]:[place] : 1960 Planned Disposition: Inpatient Rehab Anticipated Discharge Date: Discharge Date: Expected LOS: Initial Reviewer: [email or web address] Initial Review Date: 03/27/2019 Generated: 03/27/19 4:42 pm Comments DCP- Discharge Planning Updated by [email or web address]: Keara Kathleen on 03/27/19 2:[address] Received a call from [facility]. His PCP is out of town and not able to give a referral since he has not seen him since September and he does not have a diagnosis for rehab per Medicaid. CM will continue to follow and assist with discharge planning/needs. DCP- Discharge Planning Updated by [id number]: Keara Wang on 03/27/19 2:[address] Received a call from kvng Luciahousekeeping room inspector, that [facility] in [facility] can do the transcutaneous O2 level as an outpatient procedure by calling [phone]. They will need a referral from the patients primary physician. I informed Eber Castellanos. DCP- Discharge Planning Updated by [id number]: Keara Wang on 03/27/19 1:[address] kvng Luciahousekeeping room inspector called and states the transfer center states that [facility] no longer does transcutaneous O2 levels. She asks if Dr. Riojas would like him referred further out for the test. I called Geoffrey Vasquez and he spoke with Dr. Ferrell and stated that he would like patient referred further out to have this test done. I informed Rea and she will notify the transfer center. CM will continue to follow and assist with discharge planning/needs. DCP- Discharge Planning Updated by [id number]: Keara Kathleen on 03/27/19 10:[address] Patient Name: GALINA HEBERT Admission Status: ER Accout number: [id number] Admission Date: 03-24-2019 : 1960 Admission Diagnosis: Attending: MARIA T SURESH Current LOS: 3 Anticipated DC Date: Planned Disposition: Inpatient Rehab Primary Insurance: MEDICAID [place] Discharge Planning Comments: CM met with patient and his fianc?e, Therese Potter, in the room to discuss discharge planning. States he has been living with Therese at [facility]. She states they have been paying weekly and will not have any more money until the first of the month. I discussed applying for housing at [facility] and also gave them a list of housing with phone numbers, including [employer] and [employer]. They have lived at [facility] and do not want to return there due to living situation. He does not have a PCP, I provided them with [facility] number to sign up for a PCP in this county. I discussed the availability of intermediate card tender care and he is not willing to give up his check. I discussed [facility] rehab if he has any acute days left and they agree to a referral to [facility]. I spoke with Teena and clinical faxed. Dr. Riojas has asked for possible transfer to [facility] for a transcutaneous O2 level and I spoke with Rea (housekeeping room inspector), Razia Turner in administration and Oumou Davidson. CM will continue to follow and assist with discharge planning/needs. Manager Clinical Pharmacy: Keara Wang DCPIA - Discharge Planning Initial Assessment Updated by [id number]: Keara Wang on 03/27/19 11:27 am * Is the patient Alert and Oriented? Yes * PCP None * [facility] * Preadmission Environment Home with Family * ADLs Partial Dependent * Partial ADLs (Assistance needed) Ambulation * Equipment Other Wheelchair * Other Equipment Left BKA prosthesis * List name and contact numbers for known caregivers / representatives who currently or will assist patient after discharge: Balaji Hebert - sam - [phone] * Verbal permission to speak to the caregivers and representatives has been obtained from the patient. Yes * Community resources currently utilized None * Additional services required to return to the preadmission environment? Yes * Can the patient safely return to the preadmission environment? No * Has this patient been hospitalized within the prior 30 days at any hospital? No Last DP export: 03/27/19 2:19 Patient Name: GALINA HEBERT Page 61559 at 1543 All edits/amendments must be made on the electronic document DICTATION DATE: 03/27/191541 TRUSS DRIVER HELPER: NIKOLAI 03/27/191541 RPT#: [id number] DC DATE: STATUS: ADM IN [facility] [address] [place] [address] END OF REPORT
--- NOTE | 2019-03-27 15:44 | NUR ---
recieved call from nursing unit that patient's not following isolation policy after instruction. I spoke with patient and regarding isolation and the importance of following policy. voices understanding and went and put isolation gown and gloves on. Instructed her to remove gown and gloves at door and perform hand hygiene.
--- NOTE | 2019-03-27 16:40 | MORECARE ---
CASE MANAGEMENT DISCHARGE SUMMARY PATIENT: GALINA HEBERT UNIT: [id number] ADM DATE: 03/24/19 AGE: 58 : 56 SEX: M ROOM/BED: D.2231 AUTHOR: PHYLLIS,DOC PHYSICIAN: REFERRING PHYSICIAN: MARIA T SURESH MD DATE OF SERVICE: 03/27/19 Discharge Plan Patient Name: GALINA HEBERT Facility: [facility]:[place] : 1960 Planned Disposition: Inpatient Rehab Anticipated Discharge Date: Discharge Date: Expected LOS: Initial Reviewer: [email or web address] Initial Review Date: 03/27/2019 Generated: 03/27/19 5:40 pm Comments DCP- Discharge Planning Updated by [id number]: Keara Wang on 03/27/19 3:[address] I was informed by Dr. Raman's office that their office does not have any Medicaid slots available and are unable to open any slots at this time. Patient has not called [facility] for a PCP. I called connect care per his request and transferred it into the room so he can get a PCP. I informed him that he will need a PCP in [facility]. His address with Medicaid has not been changed and they connected me to another number to change his address so that he may get a doctor in [facility]. I received an answering machine and left patient's information on the machine to return the call to his room. CM will continue to follow and assist with discharge planning/needs. DCP- Discharge Planning Updated by [id number]: Keara Kathleen on 03/27/19 2:[address] [facility] of town and not able to give a referral since he has not seen him since September and he does not have a diagnosis for rehab per Medicaid. CM will continue to follow and assist with discharge planning/needs. DCP- Discharge Planning Updated by [email or web address]: Keara Wang on 03/27/19 2:[address] Received a call from Rea manager of warehouse, that [facility] in [facility] can do the transcutaneous O2 level as an outpatient procedure by calling [phone]. They will need a referral from the patients primary physician. I informed Eber Castellanos. DCP- Discharge Planning Updated by [id number]: Keara Wang on 03/27/19 1:[address] Rea, manager of warehouse called and states the transfer center states that [facility] no longer does transcutaneous O2 levels. She asks if Dr. Riojas would like him referred further out for the test. I called Geoffrey Vasquez and he spoke with Dr. Ferrell and stated that he would like patient referred further out to have this test done. I informed Rea and she will notify the transfer center. CM will continue to follow and assist with discharge planning/needs. DCP- Discharge Planning Updated by [id number]: Keara Kathleen on 03/27/19 10:[address] Patient Name: GALINA HEBERT Admission Status: ER Accout number: [id number] Admission Date: 03-24-2019 : 1960 Admission Diagnosis: Attending: MARIA T SURESH Current LOS: 3 Anticipated DC Date: Planned Disposition: Inpatient Rehab Primary Insurance: MEDICAID [place] Discharge Planning Comments: CM met with patient and his fianc?e, Therese Potter, in the room to discuss discharge planning. States he has been living with Therese at [facility]. She states they have been paying weekly and will not have any more money until the first of the month. I discussed applying for housing at [facility] and also gave them a list of housing with phone numbers, including [employer] and [employer]. They have lived at [facility] and do not want to return there due to living situation. He does not have a PCP, I provided them with [facility] number to sign up for a PCP [facility]. I discussed the availability of [employer] long goods care and he is not willing to give up his check. I discussed [facility] rehab if he has any acute days left and they agree to a referral to [facility]. I spoke with Teena and clinical faxed. Dr. Riojas has asked for possible transfer to [facility] for a transcutaneous O2 level and I spoke with Rea (manager of warehouse), Razia Turner in administration and Oumou Davidson. CM will continue to follow and assist with discharge planning/needs. Wire Twisting Machine Operator: Keara Wang DCPIA - Discharge Planning Initial Assessment Updated by [email or web address]: Keara Wang on 03/27/19 11:27 am * Is the patient Alert and Oriented? Yes * PCP None * Pharmacy [facility] [address] * Preadmission Environment Home with Family * ADLs Partial Dependent * Partial ADLs (Assistance needed) Ambulation * Equipment Other Wheelchair * Other Equipment Left BKA prosthesis * List name and contact numbers for known caregivers / representatives who currently or will assist patient after discharge: Balaji Hebert - son - [phone] * Verbal permission to speak to the caregivers and representatives has been obtained from the patient. Yes * Community resources currently utilized None * Additional services required to return to the preadmission environment? Yes * Can the patient safely return to the preadmission environment? No * Has this patient been hospitalized within the prior 30 days at any hospital? No Last DP export: 03/27/19 2:43 Patient Name: GALINA HEBERT Page 41752 at 1640 All edits/amendments must be made on the electronic document DICTATION DATE: 03/27/19 1640 BACKEND JAVA DEVELOPER: NIKOLAI 03/27/19 1640 RPT#: [id number] DC DATE: STATUS: ADM IN [facility] [address] [place] [address] END OF REPORT
--- NOTE | 2019-03-27 17:07 | MORECARE ---
CASE MANAGEMENT DISCHARGE SUMMARY PATIENT: GALINA HEBERT UNIT: [id number] ADM DATE: 03/24/19 AGE: 58 : 56 SEX: M ROOM/BED: D.2231 AUTHOR: PHYLLISDOC PHYSICIAN: REFERRING PHYSICIAN: MARIA T CHILDRESS MD DATE OF SERVICE: 03/27/19 Discharge Plan Patient Name: GALINA HEBERT Facility: [facility]:[place] : 1960 Planned Disposition: Inpatient Rehab Anticipated Discharge Date: Discharge Date: Expected LOS: Initial Reviewer: [email or web address] Initial Review Date: 03/27/2019 Generated: 03/27/19 6:06 pm Comments DCP- Discharge Planning Updated by [id number]: Keara Wang on 03/27/19 4:[address] I called the transfer team and spoke with Dariel. [facility] will not accept patient. He states they will only do the transcutaneous O2 test as an outpatient with his primary care doctor's referral. He has not seen his primary care doctor since September (Dr. Dae Levine) and he will not sign any orders for this patient. I informed Dr. Childress. DCP- Discharge Planning Updated by [id number]: Keara Kathleen on 03/27/19 3:[address] I was informed by Dr. Raman's office that their office does not have any Medicaid slots available and are unable to open any slots at this time. Patient has not called [facility] for a PCP. I called [facility] per his request and transferred it into the room so he can get a PCP. I informed him that he will need a PCP in [facility]. His address with Medicaid has not been changed and they connected me to another number to change his address so that he may get a doctor in [facility]. I received an answering machine and left patient's information on the machine to return the call to his room. CM will continue to follow and assist with discharge planning/needs. DCP- Discharge Planning Updated by [id number]: Keara Kathleen on 03/27/19 2:[address] Received a call from Teena [employer] [facility]. His PCP is out of town and not able to give a referral since he has not seen him since September and he does not have a diagnosis for rehab per Medicaid. CM will continue to follow and assist with discharge planning/needs. DCP- Discharge Planning Updated by [id number]: Keara Kathleen on 03/27/19 2:[address] Received a call from kvng Luciamalt house operator, that [facility] in [facility] can do the transcutaneous O2 level as an outpatient procedure by calling [phone]. They will need a referral from the patients primary physician. I informed Eber Castellanos. DCP- Discharge Planning Updated by [id number]: Keara Kathleen on 03/27/19 1:[address] kvng Luciamalt house operator called and states the transfer center states that [facility] no longer does transcutaneous O2 levels. She asks if Dr. Riojas would like him referred further out for the test. I called Geoffrey Vasquez and he spoke with Dr. Ferrell and stated that he would like patient referred further out to have this test done. I informed Rea and she will notify the transfer center. CM will continue to follow and assist with discharge planning/needs. DCP- Discharge Planning Updated by [email or web address]: Keara Browndiane on 03/27/19 10:[address] Patient Name: GALINA HEBERT Admission Status: ER Accout number: [id number] Admission Date: 03-24-2019 : 1960 Admission Diagnosis: Attending: MARIA T CHILDRESS Current LOS: 3 Anticipated DC Date: Planned Disposition: Inpatient Rehab Primary Insurance: [place]ID [place] Discharge Planning Comments: CM met with patient and his fianc?e, Therese Massstormy, in the room to discuss discharge planning. States he has been living with Therese at [facility]. She states they have been paying weekly and will not have any more money until the first of the month. I discussed applying for housing at [facility] and also gave them a list of housing with phone numbers, including [employer] and [employer] [facility] and do not want to return there due to living situation. He does not have a PCP, I provided them with [facility] number to sign up for a PCP in this [facility]. I discussed the availability of detention care and he is not willing to give up his check. I discussed [facility] rehab if he has any acute days left and they agree to a referral to [facility]. I spoke with Teena and clinical faxed. Dr. Riojas has asked for possible transfer to [facility] for a transcutaneous O2 level and I spoke with Rea (malt house operator), Razia Turner in administration and Oumou Davidson. CM will continue to follow and assist with discharge planning/needs. Patient Intake Representative: Keara Wang DCPIA - Discharge Planning Initial Assessment Updated by [email or web address]: Keara Wang on 03/27/19 11:27 am * Is the patient Alert and Oriented? Yes * PCP None * Pharmacy [facility] [address] * Preadmission Environment Home with Family * ADLs Partial Dependent * Partial ADLs (Assistance needed) Ambulation * Equipment Other Wheelchair * Other Equipment Left BKA prosthesis * List name and contact numbers for known caregivers / representatives who currently or will assist patient after discharge: Balaji Hebert - son - [phone] * Verbal permission to speak to the caregivers and representatives has been obtained from the patient. Yes * Community resources currently utilized None * Additional services required to return to the preadmission environment? Yes * Can the patient safely return to the preadmission environment? No * Has this patient been hospitalized within the prior 30 days at any hospital? No Last DP export: 03/27/19 3:40 Patient Name: GALINA HEBERT Page 97156 at 1707 All edits/amendments must be made on the electronic document DICTATION DATE: 03/27/191705 DIE FINISHER: NIKOLAI 03/27/191705 RPT#: [id number] DC DATE: STATUS: ADM IN [facility] [address] [place] [address] END OF REPORT
[2019-03-27 17:11] VITALS: BP 132/66
--- NOTE | 2019-03-27 18:50 | NUR ---
PATIENT IS UPSET DR WAS IN ROOM AND TOLD HIM HE WOULD GET HIM MORE PAIN MEDS AND NO NEW ORDERS HAVE COME THROUGH OF YET. WILL MONITOR.
--- NOTE | 2019-03-27 19:30 | NUR ---
REQUESTS [facility] FOR PAIN. MEDICATED WITH [facility] FOR C/O PAIN IN RLE RATING 10. PT AGITATED THAT HIS PAIN MEDS WERE CHANGED. STATES HE WOULDNT URINATE ON THE SURGEON IF HE WAS ON FIRE. AT BEDSIDE. DRSG NOTED TO RT STUMP IS C/D/I BUT PT WANTING IT CHANGED NOW. INFORMED PT THAT HE WAS ONLY TO HAVE MORPHINE AT TIME OF DRSG CHANGE AND THAT HE WAS GIVEN [facility] AND DRSG WAS STILL C/D/I AND WOULD BE CHANGED AROUND 2200.
[2019-03-27 21:46] VITALS: BP 145/70
--- NOTE | 2019-03-27 22:00 | NUR ---
DRSG CHANGE TO RT STUMP AT THIS TIME. WOUND CLEANSED WITH SALINE. PACKE DIWTH WET TO DRY IODOFORM GAUZE STRIP MEASURING 6CM. COVERED WITH 4X4S AND WRAPPED IN KERLIX AND SECURED WITH MEDIPORE TAPE. PT POLI WELL. MEDICATED WITH MORHPINE AND ZOFRAN AT THIS TIME ORDERED. WOUND MEASURED 0.4CMDX1.6CMWX1.2CML. PINK/YELLOW TINGED DRAINAGE NOTED ON OLD DRSG. WOUND BED WTIH YELLOW SLOUGH NOTED AND BONE VISIBLE. PERIWOUND WAS RED.
--- NOTE | 2019-03-28 01:27 | NUR ---
MEDICATED WITH [facility] FOR C/O PAIN IN RLE RATING 10. CL IN REACH.
[2019-03-28 05:27] LABS: BASOPHILS 0.3 % (0-2); EOSINOPHILS 3.5 % (0-7); HEMATOCRIT 39.9 % (42.0-54.0); HEMOGLOBIN 13.2 g/dL (13.5-17.5); IMMATURE GRANULOCYTES 0.2 % (0-5); LYMPHOCYTES 30.5 % (15-50); MCH 29.3 pg (26.0-34.0); MCHC 33.1 g/dL (31.0-37.0); MCV 88.5 fL (80.0-100.0); MEAN PLATELET VOLUME 10.3 fL (7.4-10.4); MONOCYTES 8.8 % (2-11); NEUTROPHILS 56.7 % (40-80); PLATELET COUNT 184 10x3/uL (130-400); RBC 4.51 10x6/uL (4.20-6.10); WBC 6.6 10x3/uL (4.8-10.8)
[2019-03-28 05:29] VITALS: BP 134/64
[2019-03-28 05:43] LABS: CALC OSMOLALITY 287 mosm/kg (275-300); CALCIUM 8.3 mg/dL (8.5-10.1); CARBON DIOXIDE 29.6 mmol/L (21.0-32.0); CHLORIDE - SERUM 107 mmol/L (98-107); CREATININE - SERUM 0.9 mg/dL (0.6-1.3); GLUCOSE 142 mg/dL (74-106); POTASSIUM - SERUM 4.4 mmol/L (3.5-5.1); SODIUM 143 mmol/L (136-145); eGFR NON AFRICAN AMERICAN > 90 mL/min (90-120)
[2019-03-28 05:48] LABS: UREA NITROGEN 16 mg/dL (7-18)
--- NOTE | 2019-03-28 07:30 | NUR ---
AWAKE AND ALERT. ORIENTED X3. C/O LEG PAIN LEVEL 8. WILL MONITOR. LUNGS ARE CLEAR BILATERALLY, NO COUGH NOTED. 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 IV TO RIGHT WRIST AREA PATENT WTIHOUT REDNESS AT INSERTION SITE. SIGNIFICANT OTHER AT BEDSIDE. WILL MONITOR.
--- NOTE | 2019-03-28 09:04 | MORECARE ---
CASE MANAGEMENT DISCHARGE SUMMARY PATIENT: GALINA HEBERT UNIT: [id number] ADM DATE: 03/24/19 AGE: 58 : 56 SEX: M ROOM/BED: D.2231 AUTHOR: PHYLLIS,DOC PHYSICIAN: REFERRING PHYSICIAN: MARIA T CHILDRESS MD DATE OF SERVICE: 03/28/19 Discharge Plan Patient Name: GALINA HEBERT Facility: [facility]:[place] : 1960 Planned Disposition: Inpatient Rehab Anticipated Discharge Date: Discharge Date: Expected LOS: Initial Reviewer: [email or web address] Initial Review Date: 03/27/2019 Generated: 03/28/19 10:03 am DCP- Discharge Planning Updated by [id number]: Keara Wang on 03/27/19 4:[address] I called the transfer team and spoke with Dariel. [facility] will not accept patient. He states they will only do the transcutaneous O2 test as an outpatient with his primary care doctor's referral. He has not seen his primary care doctor since September (Dr. Dae Levine) and he will not sign any orders for this patient. I informed Dr. Childress. DCP- Discharge Planning Updated by [id number]: Keara Wang on 03/27/19 3:[address] I was informed by Dr. Raman's office that their office does not have any Medicaid slots available and are unable to open any slots at this time. Patient has not called [facility] for a PCP. I called [facility] per his request and transferred it into the room so he can get a PCP. I informed him that he will need a PCP in [facility]. His address with Medicaid has not been changed and they connected me to another number to change his address so that he may get a doctor in [facility]. I received an answering machine and left patient's information on the machine to return the call to his room. CM will continue to follow and assist with discharge planning/needs. DCP- Discharge Planning Updated by [email or web address]: Keara Kathleen on 03/27/19 2:[address] Received a call from Teena [employer] [facility] [employer]. His PCP is out of town and not able to give a referral since he has not seen him since September and he does not have a diagnosis for rehab per Medicaid. CM will continue to follow and assist with discharge planning/needs. DCP- Discharge Planning Updated by [id number]: Keara Kathleen on 03/27/19 2:[address] Received a call from kvng [employer] manager, that [facility] in [facility] can do the transcutaneous O2 level as an outpatient procedure by calling [phone]. They will need a referral from the patients primary physician. I informed Eber Castellanos. DCP- Discharge Planning Updated by [email or web address]: Keara Kathleen on 03/27/19 1:[address] kvng [employer] manager called and states the transfer center states that [facility] no longer does transcutaneous O2 levels. She asks if Dr. Riojas would like him referred further out for the test. I called Geoffrey Vasquez and he spoke with Dr. Ferrell and stated that he would like patient referred further out to have this test done. I informed Rea and she will notify the transfer center. CM will continue to follow and assist with discharge planning/needs. DCP- Discharge Planning Updated by [email or web address]: Keara Kathleen on 03/27/19 10:[address] Patient Name: GALINA HEBERT Admission Status: ER Accout number: [id number] Admission Date: 03-24-2019 : 1960 Admission Diagnosis: Attending: MARIA T CHILDRESS Current LOS: 3 Anticipated DC Date: Planned Disposition: Inpatient Rehab Primary Insurance: MEDICAID [place] Discharge Planning Comments: CM met with patient and his fianc?e, Therese Massstormy, in the room to discuss discharge planning. States he has been living with Therese at [facility]. She states they have been paying weekly and will not have any more money until the first of the month. I discussed applying for housing at [facility] and also gave them a list of housing with phone numbers, including [employer] and [employer] They have lived at [facility] and do not want to return there due to living situation. He does not have a PCP, I provided them with [facility] number to sign up for a PCP in [facility]. I discussed the availability of predatory animal exterminator care and he is not willing to give up his check. I discussed [facility] rehab if he has any acute days left and they agree to a referral to [facility]. I spoke with Teena and clinical faxed. Dr. Riojas has asked for possible transfer to [facility] for a transcutaneous O2 level and I spoke with Rea (warehouse logistics manager), Razia Turner in administration and Oumou Davidson. CM will continue to follow and assist with discharge planning/needs. Robotics Systems Engineer: Keara Wang DCPIA - Discharge Planning Initial Assessment Updated by [email or web address]: Keara Wang on 03/27/19 11:27 am * Is the patient Alert and Oriented? Yes * PCP None * Pharmacy [facility] [address] * Preadmission Environment Home with Family * ADLs Partial Dependent * Partial ADLs (Assistance needed) Ambulation * Equipment Other Wheelchair * Other Equipment Left BKA prosthesis * List name and contact numbers for known caregivers / representatives who currently or will assist patient after discharge: Balaji Hebert - son - [phone] * Verbal permission to speak to the caregivers and representatives has been obtained from the patient. Yes * Community resources currently utilized None * Additional services required to return to the preadmission environment? Yes * Can the patient safely return to the preadmission environment? No * Has this patient been hospitalized within the prior 30 days at any hospital? No External Providers External Provider: [facility] Next Contact Date: Service Request Date: Service Type: Resolution: Reviewer: Comments: Last DP export: 03/27/19 4:07 Patient Name: GALINA HEBERT Page 94706 at 0904 All edits/amendments must be made on the electronic document DICTATION DATE: 03/28/19902 LANDFILL ATTENDANT: NIKOLAI 03/28/19902 RPT#: [id number] DC DATE: STATUS: ADM IN [facility] [address] [place] [address] END OF REPORT
--- NOTE | 2019-03-28 09:11 | MORECARE ---
CASE MANAGEMENT DISCHARGE SUMMARY PATIENT: GALINA CALVO UNIT: [id number] ADM DATE: 03/24/19 AGE: 58 : 56 SEX: M ROOM/BED: D.2231 AUTHOR: PHYLLIS,DOC PHYSICIAN: REFERRING PHYSICIAN: MARIA T SURESH MD DATE OF SERVICE: 03/28/19 Discharge Plan Patient Name: GALINA CALVO Facility: [facility]:[place] : 1960 Planned Disposition: Inpatient Rehab Anticipated Discharge Date: Discharge Date: Expected LOS: Initial Reviewer: [email or web address] Initial Review Date: 03/27/2019 Generated: 03/28/19 10:11 am Comments DCP- Discharge Planning Updated by [id number]: Keara Wang on 03/28/19 8:[address] Geoffrey Vasquez called and states Dr. Riojas would like to transfer patient to [facility] to original surgeon. I spoke with the patient and he agrees with transfer. He states his surgeon was Dr. Jarvis. I spoke with kvng [employer] helper, Amanda (web coordinator) and Kaela (community affairs director) and called the Transfer Center and spoke with Dariel and faxed facesheet. Eber Castellanos informed. CM will continue to follow and assist with discharge planning/needs. DCP- Discharge Planning Updated by [id number]: Keara Wang on 03/27/19 4:[address] I called the transfer team and spoke with Dariel. [facility] will not accept patient. He states they will only do the transcutaneous O2 test as an outpatient with his primary care doctor's referral. He has not seen his primary care doctor since September (Dr. Dae Levine) and he will not sign any orders for this patient. I informed Dr. Suresh. DCP- Discharge Planning Updated by [id number]: Keara Wang on 03/27/19 3:[address] I was informed by Dr. Raman's office that their office does not have any Medicaid slots available and are unable to open any slots at this time. Patient has not called [facility] for a PCP. I called [facility] per his request and transferred it into the room so he can get a PCP. I informed him that he will need a PCP in [facility]. His address with Medicaid has not been changed and they connected me to another number to change his address so that he may get a doctor in [facility]. I received an answering machine and left patient's information on the machine to return the call to his room. CM will continue to follow and assist with discharge planning/needs. DCP- Discharge Planning Updated by [id number]: Keara Wang on 03/27/19 2:[address] [facility] His [facility]CP is out of town and not able to give a referral since he has not seen him since September and he does not have a diagnosis for rehab per Medicaid. CM will continue to follow and assist with discharge planning/needs. DCP- Discharge Planning Updated by [id number]: Keara Browndiane on 03/27/19 2:[address] Received a call from kvng [employer]iapowerhouse helper, that [facility] in [facility] can do the transcutaneous O2 level as an outpatient procedure by calling [phone]. They will need a referral from the patients primary physician. I informed Eber Castellanos. DCP- Discharge Planning Updated by [id number]: Keara Kathleen on 03/27/19 1:[address] kvng [employer]house helper called and states the transfer center states that [facility] no longer does transcutaneous O2 levels. She asks if Dr. Riojas would like him referred further out for the test. I called Geoffrey Vasquez and he spoke with Dr. Ferrell and stated that he would like patient referred further out to have this test done. I informed Rea and she will notify the transfer center. CM will continue to follow and assist with discharge planning/needs. DCP- Discharge Planning Updated by [id number]: Keara Browndiane on 03/27/19 10:[address] Patient Name: GALINA CALVO Admission Status: ER Accout number: [id number] Admission Date: 03-24-2019 : 1960 Admission Diagnosis: Attending: MARIA T SURESH Current LOS: 3 Anticipated DC Date: Planned Disposition: Inpatient Rehab Primary Insurance: MEDICAID [place] Discharge Planning Comments: CM met with patient and his fianc?e, Therese Massmilyyolis, in the room to discuss discharge planning. States he has been living with Therese at [facility]. She states they have been paying weekly and will not have any more money until the first of the month. I discussed applying for housing at [facility] and also gave them a list of housing with phone numbers, including [employer] and [employer]. They have lived at [facility] and do not want to return there due to living situation. He does not have a PCP, I provided them with [facility] number [place]CP [place]. I discussed the availability of prison care and he is not willing to give up his check. [facility] discussed [facility] if he has any acute days left and they [facility]. I spoke with Teena and clinical faxed. Dr. Riojas has asked for possible transfer to [facility] for a transcutaneous O2 level and I spoke with Rea (powerhouse helper), Razia Turner in administration and Oumou Davidson. CM will continue to follow and assist with discharge planning/needs. Bus Girl: Kear[facility] Wang [facility] Initial Assessment Updated by [id number]: Keara Wang on 03/27/19 11:27 am * Is the patient Alert and Oriented? Yes * PCP None * Pharmacy [facility] * Preadmission Environment Home with Family * ADLs Partial Dependent * Partial ADLs (Assistance needed) Ambulation * Equipment Other Wheelchair * Other Equipment Left BKA prosthesis * List name and contact numbers for known caregivers / representatives who currently or will assist patient after discharge: Balaji Calvo - son - [phone] * Verbal permission to speak to the caregivers and representatives has been obtained from the patient. Yes * Community resources currently utilized None * Additional services required to return to the preadmission environment? Yes * Can the patient safely return to the preadmission environment? No * Has this patient been hospitalized within the prior 30 days at any hospital? No Last DP export: 03/28/19 8:04 Patient Name: GALINA CALVO Page 11612 at 0911 All edits/amendments must be made on the electronic document DICTATION DATE: 03/28/19910 HAIR TINTER: NIKOLAI 03/28/19910 RPT#: [id number] DC DATE: STATUS: ADM IN [facility] [address] [place] [address] END OF REPORT
--- NOTE | 2019-03-28 09:15 | NUR ---
GIVEN ONE HYDROCODONE PO FOR C/O RIGHT BKA PAIN LEVEL 10. WILL MONITOR.
--- NOTE | 2019-03-28 10:50 | NUR ---
DRESSING CHANGED TO RIGHT BKA. PATIENT TOLERATED VERY WELL. REQUESTED AND GIVEN 4MG MORPHINE SLOW IVP FOR PAIN LEVEL 10 AFTER CHANGE. WILL MONITOR.
--- NOTE | 2019-03-28 11:45 | NUR ---
FSBS 210. GIVEN 8 UNITS REGULAR SUBQ PER SS. FAMILY AT BEDSIDE.
[2019-03-28 12:21] VITALS: BP 144/59
--- NOTE | 2019-03-28 13:15 | NUR ---
ATE ONLY A FEW BITES OF LUNCH. REQUESTED AND GIVEN ONE HYDROCODONE PO FOR C/O RIGHT BKA PAIN LEVEL 10. WILL MONITOR. IV TO RIGHT WRIST AREA PAINFUL. RESITED TO LEFT FOREARM AFTER ONE ATTEMPT WTIH 22G. TOLERATED WELL. DENIES FURTHER NEEDS.
[2019-03-28] MEDS ORDERED: MERREM 1 GM/NS 11 G1 IVPB (13:30)
[2019-03-28] MEDS ORDERED: VANCOMYCIN 1.5 GM/NS IV (13:31)
--- NOTE | 2019-03-28 14:22 | MORECARE ---
CASE MANAGEMENT DISCHARGE SUMMARY PATIENT: GALINA HEBERT UNIT: [id number] ADM DATE: 03/24/19 AGE: 58 : 56 SEX: M ROOM/BED: D.2231 AUTHOR: PHYLLIS,DOC PHYSICIAN: REFERRING PHYSICIAN: MARIA T CHILDRESS MD DATE OF SERVICE: 03/28/19 Discharge Plan Patient Name: GALINA HEBERT Facility: [facility]:[place] : 1960 Planned Disposition: Inpatient Rehab Anticipated Discharge Date: Discharge Date: Expected LOS: Initial Reviewer: [email or web address] Initial Review Date: 03/27/2019 Generated: 03/28/19 3:22 pm Comments DCP- Discharge Planning Updated by [id number]: Keara Wang on 03/28/19 1:[address] Sarita at [facility] called and asked for more clinical which I provided. She states they are waiting on a bed assignment, then they will be able to transfer. CM will continue to follow and assist with discharge planning/needs. DCP- Discharge Planning Updated by [email or web address]: Keara Wang on 03/28/19 8:[address] Geoffrey Vasquez called and states Dr. Riojas would like to transfer patient to [facility] to original surgeon. I spoke with the patient and he agrees with transfer. He states his surgeon was Dr. Jarvis. I spoke with Amalia, housekeeping room attendant, Amanda (student services coordinator) and Kaela (pulling unit operator) and called the Transfer Center and spoke with Dariel and faxed facesheet. Eber Castellanos informed. CM will continue to follow and assist with discharge planning/needs. DCP- Discharge Planning Updated by [id number]: Keara Wang on 03/27/19 4:[address] I called the transfer team and spoke with Dariel. [facility] will not accept patient. He states they will only do the transcutaneous O2 test as an outpatient with his primary care doctor's referral. He has not seen his primary care doctor since September (Dr. Dae Levine) and he will not sign any orders for this patient. I informed Dr. Childress. DCP- Discharge Planning Updated by [email or web address]: Keara Wang on 03/27/19 3:[address] I was informed by Dr. Raman's office that their office does not have any Medicaid slots available and are unable to open any slots at this time. Patient has not called [facility] for a PCP. I called [facility] per his request and transferred it into the room so he can get a PCP. I informed him that he will need a PCP in [facility][Note 2]. His address with Medicaid has not been changed and they connected me to another number to change his address so that he may get a doctor in [facility][Note 2]. I received an answering machine and left patient's information on the machine to return the call to his room. CM will continue to follow and assist with discharge planning/needs. DCP- Discharge Planning Updated by [id number]: Keara Kathleen on 03/27/19 2:[address] Received a call from [facility]. His PCP is out of town and not able to give a referral since he has not seen him since September and he does not have a diagnosis for rehab per Medicaid. CM will continue to follow and assist with discharge planning/needs. DCP- Discharge Planning Updated by [id number]: Keara Wang on 03/27/19 2:[address] Received a call from kvng Luciahousekeeping room attendant, that [facility] in [facility] can do the transcutaneous O2 level as an outpatient procedure by calling [phone]. They will need a referral from the patients primary physician. I informed Eber Castellanos. DCP- Discharge Planning Updated by [id number]: Keara Wang on 03/27/19 1:[address] kvng Luciahousekeeping room attendant called and states the transfer center states that [facility] no longer does transcutaneous O2 levels. She asks if Dr. Riojas would like him referred further out for the test. I called Geoffrey Vasquez and he spoke with Dr. Ferrell and stated that he would like patient referred further out to have this test done. I informed Rea and she will notify the transfer center. CM will continue to follow and assist with discharge planning/needs. DCP- Discharge Planning Updated by [id number]: Keara Wang on 03/27/19 10:[address] Patient Name: GALINA HEBERT Admission Status: ER Accout number: [id number] Admission Date: 03-24-2019 : 1960 Admission Diagnosis: Attending: MARIA T CHILDRESS Current LOS: 3 Anticipated DC Date: Planned Disposition: Inpatient Rehab Primary Insurance: MEDICAID [place] Discharge Planning Comments: CM met with patient and his fianc?e, Therese Potter, in the room to discuss discharge planning. States he has been living with Therese at [facility] on [address] She states they have been paying weekly and will not have any more money until the first of the month. I discussed applying for housing at [facility] and also gave them a list of housing with phone numbers, including [employer] and [employer]. They have lived at [facility] and do not want to return there due to living situation. He does not have a PCP, I provided them with [facility] number to sign up for a PCP in this county. I discussed the availability of care home care and he is not willing to give up his check. I discussed [facility] rehab if he has any acute days left and they agree to a referral to [facility]. I spoke with Teena and clinical faxed. Dr. Riojas has asked for possible transfer to [facility] for a transcutaneous O2 level and I spoke with Rea (housekeeping room attendant), Razia Turner in administration and Oumou Davidson. CM will continue to follow and assist with discharge planning/needs. Jig Boring Machine Set Up Operator: [facility] - [facility]charge Planning Initial Assessment Updated by [email or web address]: Keara Wang on 03/27/19 11:27 am * Is the patient Alert and Oriented? Yes * PCP None * Pharmacy [facility] on [address] * Preadmission Environment Home with Family * ADLs Partial Dependent * Partial ADLs (Assistance needed) Ambulation * Equipment Other Wheelchair * Other Equipment Left BKA prosthesis * List name and contact numbers for known caregivers / representatives who currently or will assist patient after discharge: Balaji Hebert - son - [phone] * Verbal permission to speak to the caregivers and representatives has been obtained from the patient. Yes * Community resources currently utilized None * Additional services required to return to the preadmission environment? Yes * Can the patient safely return to the preadmission environment? No * Has this patient been hospitalized within the prior 30 days at any hospital? No Last DP export: 03/28/19 8:11 Patient Name: GALINA HEBERT Page 27150 at 1422 All edits/amendments must be made on the electronic document DICTATION DATE: 03/28/191421 TOP FLAVOR ATTENDANT: NIKOLAI 03/28/191421 RPT#: [id number] DC DATE: STATUS: ADM IN [facility] [address] [place] [address] END OF REPORT
--- NOTE | 2019-03-28 17:00 | NUR ---
FSBS 220. GIVEN 8 UNITS REGULAR SUBQ PER SS. SUPPER SERVED IN ROOM.
--- NOTE | 2019-03-28 17:15 | NUR ---
NOTIFIED OF BED AVAILABLE AT [facility]. DISCHARGE ORDERS RECEIVED.
--- NOTE | 2019-03-28 17:30 | NUR ---
SPOKE WITH AMBULANCE RE TRANSPORT OF SIGNIFICANT OTHER WITH PATIENT. THEY WILL CALL BACK.
[2019-03-28 17:39] VITALS: BP 139/80
--- NOTE | 2019-03-28 18:05 | NUR ---
REPORT CALLED TO LONI PIMENTEL RN AT [facility]. ALL QUESTIONS ANSWERED.
--- NOTE | 2019-03-28 18:35 | NUR ---
PATIENT REQUESTED AND GIVEN ONE HYDROCODONE PO PRIOR TO TRANSPORT FOR PAIN MANAGEMENT. NO CHANGES NOTED. DISCHARGE INSTRUCTIONS GIVEN BOTH VERBALLY AND WRITTEN. ALL QUESTIONS ANSWERED. PATIENT AND FAMILY VERBALIZED UNDERSTANDING OF SAME. WAITING ON AMBULANCE TO TRANSPORT. AMBULANCE OK EXTRA PERSON FOR TRIP.
--- NOTE | 2019-03-28 19:35 | NUR ---
CALL TO [facility] TO LET THEM KNOW THAT THE AMBULANCE HAS NOT MADE IT TO [facility] YET BUT WOULD CALL WHEN PATIENT LEAVES [facility]
--- NOTE | 2019-04-01 14:02 | MORECARE ---
CASE MANAGEMENT DISCHARGE SUMMARY PATIENT: GALINA HEBERT UNIT: [id number] ADM DATE: 03/24/19 AGE: 58 : 56 SEX: M ROOM/BED: D.2231 AUTHOR: PHYLLIS,DOC PHYSICIAN: REFERRING PHYSICIAN: MARIA T CHILDRESS MD DATE OF SERVICE: 04/01/19 Discharge Plan Patient Name: GALINA HEBERT Facility: [facility]:[place] : 1960 Planned Disposition: Inpatient Rehab Anticipated Discharge Date: Discharge Date: 03/28/2019 Expected LOS: 0 Initial Reviewer: [id number] Initial Review Date: 03/27/2019 Generated: 04/01/19 3:01 pm Comments DCP- Discharge Planning Updated by [id number]: Keara Wang on 03/28/19 1:[address] Sarita at [facility] called and asked for more clinical which I provided. She states they are waiting on a bed assignment, then they will be able to transfer. CM will continue to follow and assist with discharge planning/needs. DCP- Discharge Planning Updated by [id number]: Keara Wang on 03/28/19 8:[address] Geoffrey Vasquez called and states Dr. Riojas would like to transfer patient to [facility] to original surgeon. I spoke with the patient and he agrees with transfer. He states his surgeon was Dr. Jarvis. I spoke with Amalia, house moving supervisor, Amanda (artificial flower maker) and Kaela (director community health nursing) and called the Transfer Center and spoke with Dariel and faxed facesheet. Eber Castellanos informed. CM will continue to follow and assist with discharge planning/needs. DCP- Discharge Planning Updated by [id number]: Keara Wang on 03/27/19 4:[address] I called the transfer team and spoke with Dariel. [facility] will not accept patient. He states they will only do the transcutaneous O2 test as an outpatient with his primary care doctor's referral. He has not seen his primary care doctor since September (Dr. Dae Levine) and he will not sign any orders for this patient. I informed Dr. Childress. DCP- Discharge Planning Updated by [id number]: Keara Wang on 03/27/19 3:[address] I was informed by Dr. Raman's office that their office does not have any Medicaid slots available and are unable to open any slots at this time. Patient has not called [facility] for a PCP. I called [facility] per his request and transferred it into the room so he can get a PCP. I informed him that he will need a PCP in [facility]. His address with Medicaid has not been changed and they connected me to another number to change his address so that he may get a doctor in [facility]. I received an answering machine and left patient's information on the machine to return the call to his room. CM will continue to follow and assist with discharge planning/needs. DCP- Discharge Planning Updated by [id number]: Keara Kathleen on 03/27/19 2:[address] [facility] His PCP is out of town and not able to give a referral since he has not seen him since September and he does not have a diagnosis for rehab per Medicaid. CM will continue to follow and assist with discharge planning/needs. DCP- Discharge Planning Updated by [id number]: Keara Wang on 03/27/19 2:[address] Received a call from kvng Luciahouse moving supervisor, that [facility] in [facility] can do the transcutaneous O2 level as an outpatient procedure by calling [phone]. They will need a referral from the patients primary physician. I informed Eber Castellanos. DCP- Discharge Planning Updated by [id number]: Keara Wang on 03/27/19 1:[address] kvng Luciahouse moving supervisor called and states the transfer center states that no longer does transcutaneous O2 levels. She asks if Dr. Riojas would like him referred further out for the test. I called Geoffrey Vasquez and he spoke with Dr. Ferrell and stated that he would like patient referred further out to have this test done. I informed Rea and she will notify the transfer center. CM will continue to follow and assist with discharge planning/needs. DCP- Discharge Planning Updated by [id number]: Keara Kathleen on 03/27/19 10:[address] Patient Name: GALINA HEBERT Admission Status: ER Accout number: [id number] Admission Date: 03-24-2019 : 1960 Admission Diagnosis: Attending: MARIA T CHILDRESS Current LOS: 3 Anticipated DC Date: Planned Disposition: Inpatient Rehab Primary Insurance: MEDICAID [place] Discharge Planning Comments: CM met with patient and his fianc?e, Therese Potter, in the room to discuss discharge planning. States he has been living with Therese at [facility] on [address]. She states they have been paying weekly and will not have any more money until the first of the month. I discussed applying for housing at [facility] and also gave them a list of housing with phone numbers, including [facility] and [employer]. They have lived at [facility] and do not want to return there due to living situation. He does not have a PCP, I provided them with [facility] number to sign up for a PCP in this county. I discussed the availability of ad terminal makeup operator care and he is not willing to give up his check. I discussed [facility] rehab if he has any acute days left and they agree to a referral to [facility]. I spoke with Teena and clinical faxed. Dr. Riojas has asked for possible transfer to for a transcutaneous O2 level and I spoke with Rea (house moving supervisor), Razia Turner in administration and Oumou Davidson. CM will continue to follow and assist with discharge planning/needs. Family Dentist: Keara Wang [facility] - Discharge Planning Initial Assessment Updated by [id number]: Keara Wang on 03/27/19 11:27 am * Is the patient Alert and Oriented? Yes * PCP None * Pharmacy [facility] on [address] * Preadmission Environment Home with Family * ADLs Partial Dependent * Partial ADLs (Assistance needed) Ambulation * Equipment Other Wheelchair * Other Equipment Left BKA prosthesis * List name and contact numbers for known caregivers / representatives who currently or will assist patient after discharge: Balaji Hebert - son - [phone] * Verbal permission to speak to the caregivers and representatives has been obtained from the patient. Yes * Community resources currently utilized None * Additional services required to return to the preadmission environment? Yes * Can the patient safely return to the preadmission environment? No * Has this patient been hospitalized within the prior 30 days at any hospital? No Last DP export: 03/28/19 1:22 Patient Name: GALINA HEBERT Page 19521 at 1402 All edits/amendments must be made on the electronic document DICTATION DATE: 04/01/191399 WAFER FABRICATOR: NIKOLAI 04/01/191399 RPT#: [id number] DC DATE:03/28/19 STATUS: DIS IN [facility] [address] [place] [address] END OF REPORT
== END 2019-03-28 20:51 | disposition short-term general hospital (02) | DRG 464 ==
LOC: D.ER 16:13 → D.MS 21:34
PROVIDERS: Emergency Medicine; ADMIT Internal Medicine Nephrology; ATTEND Internal Medicine Nephrology
PROC: 0JBN0ZZ Excision of Right Lower Leg Subcutaneous Tissue and Fascia, Open Approach (ICD-10-PCS; principal; 2019-03-27)
DX: T87.43 Infection of amputation stump, right lower extremity (principal); F17.203 Nicotine dependence unspecified, with withdrawal; I74.3 Embolism and thrombosis of arteries of the lower extremities; L03.115 Cellulitis of right lower limb; I73.9 Peripheral vascular disease, unspecified; I25.10 Atherosclerotic heart disease of native coronary artery without angina pectoris; I10 Essential (primary) hypertension; E11.9 Type 2 diabetes mellitus without complications; E78.5 Hyperlipidemia, unspecified

== ENCOUNTER 2019-04-05 12:05 | Inpatient (IN) | payer MEDICAID ==
[~2019-04-05] VITALS: Ht 172.7 cm; Wt 85.7 kg
[~2019-04-05 12:05] MED LIST changes: +MERREM 1 GM/NS 11 G1 IVPB; +VANCOMYCIN 1.5 GM/NS IV
[2019-04-05 14:14] VITALS: BP 128/68; BMI 28.8
--- NOTE | 2019-04-05 14:29 | NUR ---
PATIENT ADMITTED TO ROOM 2222. ADMISSION COMPLETE. FALL PRECAUTIONS IN PLACE. SPOKE WITH LEESA ASCENCIO ABOUT PAIN MEDICAITON. INFORMED APPLIANCE PARTS COUNTER CLERK THAT PATIENT WAS TAKING PO DILAUDID WELL IV DILAUDID, ALTERATING Q2HRS AT [facility]. STATES RESTART SAME DOSE OF MEDS FROM [facility]. PATIENT RECEIVING ONE MG EACH AT [facility]. WILL RESTART.
[2019-04-05 14:55] LABS: BASOPHILS 0.2 % (0-2); EOSINOPHILS 0.8 % (0-7); HEMATOCRIT 39.5 % (42.0-54.0); HEMOGLOBIN 13.2 g/dL (13.5-17.5); IMMATURE GRANULOCYTES 0.3 % (0-5); LYMPHOCYTES 19.4 % (15-50); MCH 29.2 pg (26.0-34.0); MCHC 33.4 g/dL (31.0-37.0); MCV 87.4 fL (80.0-100.0); MONOCYTES 11.4 % (2-11); NEUTROPHILS 67.9 % (40-80); PLATELET COUNT 194 10x3/uL (130-400); RBC 4.52 10x6/uL (4.20-6.10); RDW 12.8 % (11.5-14.5); WBC 11.1 10x3/uL (4.8-10.8)
--- NOTE | 2019-04-05 15:00 | NUR ---
SPOKE WITH LEESA ASCENCIO WHO STATES CHANGE IV DILAUDID TO Q6HPRN AND CHANGE PO DILAUDID TO 1.5MG Q4HPRN. CHANGES MADE.
[2019-04-05 15:10] LABS: ALBUMIN 3.5 g/dL (3.4-5.0); ALKALINE PHOSPHATASE 61 U/L (46-116); ALT (SGPT) 22 U/L (10-68); BILIRUBIN - TOTAL 0.31 mg/dL (0.2-1.3); CALC OSMOLALITY 286 mosm/kg (275-300); CALCIUM 8.6 mg/dL (8.5-10.1); CARBON DIOXIDE 28.7 mmol/L (21.0-32.0); CHLORIDE - SERUM 102 mmol/L (98-107); POTASSIUM - SERUM 4.1 mmol/L (3.5-5.1); PROTEIN - SERUM 6.3 g/dL (6.4-8.2); SODIUM 136 mmol/L (136-145); UREA NITROGEN 26 mg/dL (7-18); eGFR NON AFRICAN AMERICAN 81 mL/min (90-120)
[2019-04-05 15:11] LABS: GLUCOSE 271 mg/dL (74-106)
--- NOTE | 2019-04-05 15:24 | NUR ---
NOTCH MACHINE OPERATOR CALLED [facility] TO REQUEST ABX RECORD AND LAST CULTURES PER NURSING MESSAGE PLACED BY LEESA ASCENCIO. [facility] NURSE EULA EXTREMELY RUDE AND STATES ALREADY SEND RECORDS AND HAD NOTHING ELSE TO SEND.
--- NOTE | 2019-04-05 16:16 | NUR ---
RESTING IN BED. DENIES NEEDS. SIGNIFICANT OTHER AT BEDSIDE. WILL CONTINUE TO MONITOR.
--- NOTE | 2019-04-05 17:55 | NUR ---
SPOKE WITH ENAMEL PULVERIZER TO GET PATIENT DILAUDID TAB. STATES WILL BE UP TO FLOOR TO GET MED.
--- NOTE | 2019-04-05 18:44 | NUR ---
RESTING IN BED. DENIES NEEDS. BED LOW. CALL MAGAÑA AND PERSONAL ITEMS IN REACH.
[2019-04-05 19:00] VITALS: BP 132/58
--- NOTE | 2019-04-05 19:15 | NUR ---
PT ALERT AND ORIENTED WHEN ENTERING THE ROOM. SIGNIFICANT OTHER AT BEDSIDE. PATIENT IS BILATERAL BKA. RIGHT BKA WRAPPED AND ELEVATED PATIENT STATES "REVISION AT [facility]." PATIENT STATES HE IS IN CONSTANT PAIN. PREVIOUS NURSE HAD TIMES OF MEDICATION AVAILABILITY ON BOARD. PATIENT STATED SEVERAL TIMES THAT HE WOULD BE USING THE CALL LIGHT EVERY THREE HOURS FOR PAIN MEDICINE HE IS ALLOWED. EDUCATED PATIENT ON OTHER NON PHARMALOGICAL INTERVENTIONS. PATIENT PASSIVE WITH THESE TEACHINGS AND STATES THAT PAIN MEDICINE IS THE ONLY EFFECTIVE TREATMENT. PATIENT HAS FALL PRECAUTIONS IN PLACE. PATIENT QUESTIONS FALL PRECAUTIONS. PROVIDED FURTHER EDUCATION ON FALL RISK CRITERIA. PATIENT AND SIGNIFICANT OTHER VERBALIZE UNDERSTANDING. DENIES FURTHER NEEDS AT THIS TIME. CALL LIGHT REMAINS IN REACH OF PATIENT. LEFT FOREARM IV IS INFUSING AT A KVO RATE. CPOC.
--- NOTE | 2019-04-05 21:00 | NUR ---
PATIENT USED CALL LIGHT TO INFORM THIS NURSE THAT IT IS TIME FOR HIS MEDICINE. PATIENT RATES PAIN 10/10 AND STATES THAT HE ALWAYS STAYS IN THIS MUCH PAIN. ADMINISTERED IV DILAUDID PER ORDER. PATIENT TOLERATED WELL. DENIES FURTHER NEEDS AT THIS TIME. CALL LIGHT IN REACH. CPOC.
[2019-04-06] VITALS: BP 124/77
--- NOTE | 2019-04-06 01:15 | NUR ---
I have reviewed this patient and I concur with the Shift Assessment completed by the Licensed Practical Nurse today this shift.
[2019-04-06 04:00] VITALS: BP 149/65
[2019-04-06 05:38] LABS: BASOPHILS 0.3 % (0-2); EOSINOPHILS 1.5 % (0-7); HEMATOCRIT 40.5 % (42.0-54.0); HEMOGLOBIN 13.5 g/dL (13.5-17.5); IMMATURE GRANULOCYTES 0.2 % (0-5); LYMPHOCYTES 22.4 % (15-50); MCH 29.3 pg (26.0-34.0); MCHC 33.3 g/dL (31.0-37.0); MEAN PLATELET VOLUME 10.1 fL (7.4-10.4); MONOCYTES 10.5 % (2-11); NEUTROPHILS 65.1 % (40-80); PLATELET COUNT 183 10x3/uL (130-400); WBC 9.5 10x3/uL (4.8-10.8)
[2019-04-06 06:03] LABS: ALBUMIN 3.5 g/dL (3.4-5.0); ALKALINE PHOSPHATASE 55 U/L (46-116); ALT (SGPT) 21 U/L (10-68); CALC OSMOLALITY 281 mosm/kg (275-300); CALCIUM 8.8 mg/dL (8.5-10.1); CARBON DIOXIDE 30.5 mmol/L (21.0-32.0); CHLORIDE - SERUM 105 mmol/L (98-107); POTASSIUM - SERUM 4.1 mmol/L (3.5-5.1); PROTEIN - SERUM 6.6 g/dL (6.4-8.2); SODIUM 139 mmol/L (136-145); UREA NITROGEN 22 mg/dL (7-18); eGFR NON AFRICAN AMERICAN 81 mL/min (90-120)
[2019-04-06 06:05] LABS: GLUCOSE 116 mg/dL (74-106)
[2019-04-06 07:00] VITALS: BP 134/89
--- NOTE | 2019-04-06 07:20 | NUR ---
PATIENT STATES PAIN MEDICATION NOT WORKING. SPOKE WITH LEESA THORNE WHO STATES "REN[facility] AND DR HUGHES WILL ADDRESS THAT TODAY." NO ORDERS GIVEN. WILL TALK TO LEESA GRAYSON WHEN ARRIVES TO HOSPITAL."
--- NOTE | 2019-04-06 07:38 | NUR ---
ALERT AND ORIENTED. LUNGS DIMINISHED TO BLL. HEART SOUNDS S1 AND S2 HEARD IN ALL HAYNES. BOWEL SOUNDS ACTIVE X 4. BILATERAL BKA. RIGHT BKA REVISION DRSG C/D/I. C/O PAIN 03/27 BUT NO PAIN MEDICATION AVAILABLE AT THIS TIME. IV TO LFA PATENT WITHOUT REDNESS. EXTREMELY PRAIRIE BAND. BED LOW. FALL PRECAUTIONS IN PLACE. CALL MAGAÑA AND PERSONAL ITEMS IN REACH. WILL CONTINUE TO MONITOR.
--- NOTE | 2019-04-06 09:19 | NUR ---
SPOKE WITH LEESA GRAYSON ABOUT PATIENT CONSISTENTLY ASKING FOR MORE PAIN MEDICAITON. STATES PLACE PATIENT ON DILAUDID MOTION GRAPHICS ARTIST O.2-10-4. STATES WILL TAPER DURING THE WEEK.
--- NOTE | 2019-04-06 09:35 | NUR ---
CARBON SEQUESTRATION PLANT OPERATOR SET UP AND 0.4MG BOLUS DOSE GIVEN ON SET UP. WITNESSED BY IRA PERDUE.
--- NOTE | 2019-04-06 10:01 | NUR ---
PATIENT STATES POULTRY HUSBANDRY TEACHER "HELPING A LOT" WITH PAIN. STATES PAIN DECREASED TO 4/10.
--- NOTE | 2019-04-06 12:40 | NUR ---
RESTING IN BED. DENIES NEEDS. WILL CONTINUE TO MONITOR.
--- NOTE | 2019-04-06 14:09 | NUR ---
RESTING IN BED. DENIES NEEDS. WILL CONTINUE TO MONITOR.
--- NOTE | 2019-04-06 15:00 | NUR ---
PAPERWORK SIGNED BY PATIENT AND FAXED TO [facility] FOR WOUND CULTURES.
--- NOTE | 2019-04-06 15:32 | NUR ---
RESTING IN BED. DENIES NEEDS. WILL CONTINUE TO MONITOR.
--- NOTE | 2019-04-06 16:51 | NUR ---
IV INFILTRATED TO LFA. ATTEMPTED TO RESITE TO [facility] WITHOUT SUCCESS. SECOND RN ATTEMPTING TO RESITE.
--- NOTE | 2019-04-06 16:57 | NUR ---
IV RESITED TO [facility].
[2019-04-06 16:58] VITALS: BP 131/77
--- NOTE | 2019-04-06 19:50 | NUR ---
SITTING UP IN BED WATCHING FOOTBALL GAME. AT BEDSIDE. RESP SHALLOW AND NONLABORED. RATES PAIN IN RT BKA 10. FILLING SEPARATOR DILAUDID IN USE. STATES ITS WORKING AND HE FEELS BETTER. ATTEMPTED TO EXPLAIN PAIN SCALE TO PT BUT HE WAS NOT RECEPTIVE TO LEARNING. TREVIN WRAP NOTED TO RT BKA. BROWNISH/BLACK AREA NOTED TO SKIN ON LT BKA. NS @ 30 MLHR INFUSING IN RT UPPER ARM WITHOUT DIFF. SAMEERA ALARM IN USE FOR PT SAFETY. SR ELEVATED X2. CL IN REACH.
[2019-04-06 20:00] VITALS: BP 116/68
--- NOTE | 2019-04-06 21:30 | NUR ---
OFFERED BEDTIME SNACK. PT REFUSED.
[2019-04-07] VITALS: BP 130/67
--- NOTE | 2019-04-07 01:20 | NUR ---
LYING IN BED WITH EYES CLOSED. RESP EVEN AND NONLABORED. NO DISTRESS. CL IN REACH. AT BEDSIDE.
[2019-04-07 04:00] VITALS: BP 125/73
[2019-04-07 05:48] LABS: BASOPHILS 0.4 % (0-2); EOSINOPHILS 1.9 % (0-7); HEMATOCRIT 43.4 % (42.0-54.0); HEMOGLOBIN 14.5 g/dL (13.5-17.5); IMMATURE GRANULOCYTES 0.3 % (0-5); LYMPHOCYTES 20.5 % (15-50); MCH 29.4 pg (26.0-34.0); MCHC 33.4 g/dL (31.0-37.0); MEAN PLATELET VOLUME 10.5 fL (7.4-10.4); MONOCYTES 12.3 % (2-11); NEUTROPHILS 64.6 % (40-80); PLATELET COUNT 183 10x3/uL (130-400); RBC 4.93 10x6/uL (4.20-6.10); RDW 13.1 % (11.5-14.5); WBC 7.7 10x3/uL (4.8-10.8)
--- NOTE | 2019-04-07 06:06 | NUR ---
SLEPT WELL THIS SHIFT. UTILITY OPERATOR WORKING WELL FOR PAIN. LYING IN BED. TALKATIVE WITH STAFF. MUCH CALMER AND COOPERATIVE. AT BEDSIDE. CL IN REACH.
[2019-04-07 06:29] LABS: ALBUMIN 3.5 g/dL (3.4-5.0); ALKALINE PHOSPHATASE 57 U/L (46-116); ALT (SGPT) 19 U/L (10-68); BILIRUBIN - TOTAL 0.52 mg/dL (0.2-1.3); CALC OSMOLALITY 282 mosm/kg (275-300); CARBON DIOXIDE 27.9 mmol/L (21.0-32.0); CHLORIDE - SERUM 101 mmol/L (98-107); GLUCOSE 187 mg/dL (74-106); POTASSIUM - SERUM 4.2 mmol/L (3.5-5.1); SODIUM 138 mmol/L (136-145); UREA NITROGEN 18 mg/dL (7-18); eGFR NON AFRICAN AMERICAN 81 mL/min (90-120)
--- NOTE | 2019-04-07 06:33 | NUR ---
MEDICATED WITH ZOFRAN FOR C/O NAUSEA.
[2019-04-07 08:36] VITALS: BP 106/70
--- NOTE | 2019-04-07 09:10 | NUR ---
PT LYING IN BED STATED LEG IS IN PAIN AND BURNING, PT HAS AX SURVEY WORKER PUMP AND SPOKE TO LEESA PHAM, NO OTHER NEEDS VOICED, ASSUME PT CARE
--- NOTE | 2019-04-07 09:12 | NUR ---
PT IS C/O NAUSEA TOO EARLY FOR ZOFRAN ADVISED PT ONE MORE HOUR FOR NAUSEA MEDICINE
--- NOTE | 2019-04-07 09:25 | NUR ---
SPOKE TO ALBA, WAS GIVEN ORDERS TO GIVE ZOFRAN EARLY CONTINUE WITH PLAN OF CARE
--- NOTE | 2019-04-07 10:59 | NUR ---
LYING IN BED,WITHOUT DISTRESS.FAMILY AT BEDSIDE
[2019-04-07 12:48] VITALS: BP 138/69
--- NOTE | 2019-04-07 14:18 | NUR ---
OT NOTE: PT REFUSED IN BOTH AM AND PM DUE TO PAIN. STATED THAT HE WAS NOT TRYING TO BE DIFFICULTY BUT JUST COULD NOT DO ANYTHING TODAY SECONDARY TO PAIN. STATES THAT HE WILL ATTEMPT TOMORROW IF POSSIBLE. GINA GIRALDO, OTR/L
[2019-04-07 14:20] VITALS: Ht 172.7 cm; Wt 85.7 kg
[2019-04-07 16:30] VITALS: BP 134/64
--- NOTE | 2019-04-07 19:45 | NUR ---
PT SITTING UP IN BED, AT BEDSIDE. IV RIGHT UPPER ARM INFUSING NS @ 30 WITH DILAUDID CHIROPRACTIC TEACHER. PT STATES PAIN IN RIGHT LEG 6/10 AT THIS TIME, USING CHIROPRACTIC TEACHER NEEDED. REQUESTED AND GIVEN ZOFRAN FOR NAUSEA. DENIES OTHER NEEDS, WILL CTM
--- NOTE | 2019-04-07 20:30 | NUR ---
FSBS 112. PT REFUSED [facility]ANT[facility] STATING HE DID NOT WANT BS DROPPING TOO LOW. WILL CTM
[2019-04-07 20:50] VITALS: BP 111/88
--- NOTE | 2019-04-08 00:30 | NUR ---
PT STATES HE IS FEELING NAUSEOUS, GAVE ZOFRAN ORDERED. WILL CTM
[2019-04-08 01:04] VITALS: BP 151/77
[2019-04-08 04:42] VITALS: BP 135/83
[2019-04-08 05:15] LABS: BASOPHILS 0.3 % (0-2); EOSINOPHILS 1.7 % (0-7); HEMATOCRIT 40.8 % (42.0-54.0); HEMOGLOBIN 13.5 g/dL (13.5-17.5); IMMATURE GRANULOCYTES 0.1 % (0-5); LYMPHOCYTES 19.4 % (15-50); MCHC 33.1 g/dL (31.0-37.0); MCV 87.7 fL (80.0-100.0); MEAN PLATELET VOLUME 10.3 fL (7.4-10.4); NEUTROPHILS 66.5 % (40-80); PLATELET COUNT 180 10x3/uL (130-400); RBC 4.65 10x6/uL (4.20-6.10); RDW 12.8 % (11.5-14.5); WBC 7.2 10x3/uL (4.8-10.8)
[2019-04-08 06:04] LABS: ALBUMIN 3.3 g/dL (3.4-5.0); ALKALINE PHOSPHATASE 54 U/L (46-116); ALT (SGPT) 18 U/L (10-68); BILIRUBIN - TOTAL 0.48 mg/dL (0.2-1.3); CALC OSMOLALITY 272 mosm/kg (275-300); CALCIUM 8.7 mg/dL (8.5-10.1); CHLORIDE - SERUM 99 mmol/L (98-107); GLUCOSE 219 mg/dL (74-106); PROTEIN - SERUM 6.7 g/dL (6.4-8.2); SODIUM 131 mmol/L (136-145); UREA NITROGEN 20 mg/dL (7-18); eGFR NON AFRICAN AMERICAN 81 mL/min (90-120)
[2019-04-08 08:27] VITALS: BP 135/74
--- NOTE | 2019-04-08 08:43 | NUR ---
PT LYING IN BED WITH SPOUSE AT BEDSIDE, NO NEEDS VOCIED, NO S/S OF DISTRESS, CONTINUE WITH PLAN OF CARE
--- NOTE | 2019-04-08 09:29 | NUR ---
CHANGED PT BRICKLAYER'S ASSISTANT AFTER REMOVAL OF CAST FROM SURGERY AT [facility] WITH WOUND CARE NURSE, PT TOLERATED WELL, INSTRUCTIONS FOR DRESSING CHANGED UPDATED BY WOUND CARE NURSE. CONTINUE WITH PLAN OF CARE
--- NOTE | 2019-04-08 09:39 | NUR ---
PT RETURNED TO [facility] AFTER RBKA ON SUNDAY AT [facility]. INCISION IS INTACT. DANYELL IN PLACE. NO REDNESS, EDEMA OR BRUISING. NO ODOR. SCANT AMOUNT OF BLOODY DRAINAGE. COVERED WITH 4X4S, WRAPPED WITH CAST PADDING AND KERLIX. PT TOLERATED WELL. RECOMMEND EVERY OTHER DAY DRESSING CHANGES - UNLESS DRESSING BECOMES SATURATED OR DISLODGES. WOUND CARE WILL MONITOR.
--- NOTE | 2019-04-08 11:51 | NUR ---
OT NOTE: ATTEMPTED EVAL TODAY. PT STATING THAT HE WAS IN SEVERE PAIN HE HAD JUST TRANSFERRED TO , TO TOILET, TO , AND BACK TO BED. STATED THAT HE WANTS TO PARTICIPATE AND THAT HES NOT MAKING EXCUSES BUT STATES THAT HIS PAIN IS MAKING HIM SICK. WILL TRY AGAIN TOMORROW. GINA GIRALDO, OTR/L
[2019-04-08 12:34] VITALS: BP 145/98
--- NOTE | 2019-04-08 13:42 | MORECARE ---
CASE MANAGEMENT DISCHARGE SUMMARY PATIENT: GALINA HEBERT UNIT: [id number] ADM DATE: 04/05/19 AGE: 58 : 56 SEX: M ROOM/BED: D.2222 AUTHOR: VIRGINIE FERGUSON PHYSICIAN: REFERRING PHYSICIAN: GABBY HUGHES MD DATE OF SERVICE: 04/08/19 Discharge Plan Patient Name: GALINA HEBERT Facility: [facility]:[place] : 1960 Planned Disposition: Home Anticipated Discharge Date: Discharge Date: Expected LOS: Initial Reviewer: [email or web address] Initial Review Date: 04/08/2019 Generated: 04/08/19 2:41 pm DCPIA - Discharge Planning Initial Assessment Updated by [email or web address]: Keara Wang on 04/08/19 1:39 pm * Is the patient Alert and Oriented? Yes * PCP No PCP * [facility] * Preadmission Environment Acute Care Facility * Facility Name [facility] * ADLs Partial Dependent * Partial ADLs (Assistance needed) Ambulation * Equipment Other Wheelchair * Other Equipment Left BK prosthesis * List name and contact numbers for known caregivers / representatives who currently or will assist patient after discharge: Therese barone?e - [phone] ([facility] number) Balaji Hebert - [place] - [phone] * Verbal permission to speak to the caregivers and representatives has been obtained from the patient. No * Community resources currently utilized None * Additional services required to return to the preadmission environment? Yes * Can the patient safely return to the preadmission environment? Yes * Has this patient been hospitalized within the prior 30 days at any hospital? No Patient Name: GALINA HEBERT Page 72842 at 1342 All edits/amendments must be made on the electronic document DICTATION DATE: 04/08/19 1341 ARMHOLE FELLER HANDSTITCHING MACHINE: NIKOLAI 04/08/19 1341 RPT#: [id number] DC DATE: STATUS: ADM IN [facility] [address] [place] [address] END OF REPORT
--- NOTE | 2019-04-08 13:55 | MORECARE ---
CASE MANAGEMENT DISCHARGE SUMMARY PATIENT: GALINA HEBERT UNIT: [id number] ADM DATE: 04/05/19 AGE: 58 : 56 SEX: M ROOM/BED: D.2222 AUTHOR: VIRGINIE FERGUSON PHYSICIAN: REFERRING PHYSICIAN: GABBY HUGHES MD DATE OF SERVICE: 04/08/19 Discharge Plan Patient Name: GALINA HEBERT Facility: [facility]:[place] : 1960 Planned Disposition: Home Anticipated Discharge Date: Discharge Date: Expected LOS: Initial Reviewer: [email or web address] Initial Review Date: 04/08/2019 Generated: 04/08/19 2:55 pm Comments DCP- Discharge Planning Updated by [email or web address]: Keara Wang on 04/08/19 12:[address] Patient Name: GALINA HEBERT Admission Status: Elective Accout number: [id number] Admission Date: 04-05-2019 : 1960 Admission Diagnosis: Attending: GABBY HUGHES Current LOS: 3 Anticipated DC Date: Planned Disposition: Home Primary Insurance: MEDICAID [place] Discharge Planning Comments: CM met with patient and his fianc?e to discuss discharge planning. He is a transfer back from [facility], therefore nothing has changed. They have not called Medicaid number to change his address yet. I called the number from his room to have his address changed for him. He will have to have address change take effect first before he can get a primary doctor in [facility]. I informed him that without a PCP, he can not get home health. I gave him the options of going to a alf to a senior living bed for at least 30 days for his IV antibiotics, but he would have to give up his check. He is not willing to give up his check. I told him another option is to come to the hospital daily for IV antibiotics. I informed him again that home health is not an option until he has a Primary Care Physician in [facility] and it is listed on the Medicaid website. CM will continue to follow and assist with discharge planning/needs. Wood Hacker: Keara Wang DCPIA - Discharge Planning Initial Assessment Updated by [id number]: Keara Wang on 04/08/19 1:39 pm * Is the patient Alert and Oriented? Yes * PCP No PCP * Pharmacy [facility] * Preadmission Environment Acute Care Facility * Facility Name [facility] * ADLs Partial Dependent * Partial ADLs (Assistance needed) Ambulation * Equipment Other Wheelchair * Other Equipment Left BK prosthesis * List name and contact numbers for known caregivers / representatives who currently or will assist patient after discharge: Therese barone?e - [phone] ([facility] number) Balaji Hebert - son - [phone] * Verbal permission to speak to the caregivers and representatives has been obtained from the patient. No * Community resources currently utilized None * Additional services required to return to the preadmission environment? Yes * Can the patient safely return to the preadmission environment? Yes * Has this patient been hospitalized within the prior 30 days at any hospital? No Last DP export: 04/08/19 12:42 Patient Name: GALINA HEBERT Page 75825 at 1355 All edits/amendments must be made on the electronic document DICTATION DATE: 04/08/19 1355 DEVELOPMENTAL EDUCATION INSTRUCTOR: NIKOLAI 04/08/19 1355 RPT#: [id number] DC DATE: STATUS: ADM IN [facility] [address] [place] [address] END OF REPORT
--- NOTE | 2019-04-08 14:08 | MORECARE ---
CASE MANAGEMENT DISCHARGE SUMMARY PATIENT: GALINA HEBERT UNIT: [id number] ADM DATE: 04/05/19 AGE: 58 : 56 SEX: M ROOM/BED: D.2222 AUTHOR: PHYLLISDOC PHYSICIAN: REFERRING PHYSICIAN: GABBY HUGHES MD DATE OF SERVICE: 04/08/19 Discharge Plan Patient Name: GALINA HEBERT Facility: [facility]:[place] : 1960 Planned Disposition: Home Anticipated Discharge Date: Discharge Date: Expected LOS: Initial Reviewer: [email or web address] Initial Review Date: 04/08/2019 Generated: 04/08/19 3:07 pm Comments DCP- Discharge Planning Updated by [email or web address]: Keara Wang on 04/08/19 1:[address] Patient given the number to the [facility] in [place] [phone] to try and change address with Medicaid. He may have to go to the [facility] in person. CM will continue to follow and assist with discharge planning/needs. DCP- Discharge Planning Updated by [email or web address]: Keara Wang on 04/08/19 12:[address] Patient Name: GALINA HEBERT Admission Status: Elective Accout number: [id number] Admission Date: 04-05-2019 : 1960 Admission Diagnosis: Attending: GABBY HUGHES Current LOS: 3 Anticipated DC Date: Planned Disposition: Home Primary Insurance: MEDICAID [place] Discharge Planning Comments: CM met with patient and his fianc?e to discuss discharge planning. He is a transfer back from [facility], therefore nothing has changed. They have not called Medicaid number to change his address yet. I called the number from his room to have his address changed for him. He will have to have address change take effect first before he can get a primary doctor in [facility]. I informed him that without a PCP, he can not get home health. 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 He is not willing to give up his check. I told him another option is to come to the hospital daily for IV antibiotics. I informed him again that home health is not an option until he has a Primary Care Physician in [facility] and it is listed on the Medicaid website. CM will continue to follow and assist with discharge planning/needs. Ham Marker: Keara Browndiane DCPIA - Discharge Planning Initial Assessment Updated by [email or web address]: Keara Browndiane on 04/08/19 1:39 pm * Is the patient Alert and Oriented? Yes * PCP No PCP * Pharmacy [facility] * Preadmission Environment Acute Care Facility * Facility Name [facility] * ADLs Partial Dependent * Partial ADLs (Assistance needed) Ambulation * Equipment Other Wheelchair * Other Equipment Left BK prosthesis * List name and contact numbers for known caregivers / representatives who currently or will assist patient after discharge: Therese barone?e - [phone] ([facility] number) Balaji Hebert - sam - [phone] * Verbal permission to speak to the caregivers and representatives has been obtained from the patient. No * Community resources currently utilized None * Additional services required to return to the preadmission environment? Yes * Can the patient safely return to the preadmission environment? Yes * Has this patient been hospitalized within the prior 30 days at any hospital? No Last DP export: 04/08/19 12:55 Patient Name: GALINA HEBERT Page 00688 at 1408 All edits/amendments must be made on the electronic document DICTATION DATE: 04/08/191406 CRAYON SAWYER: NIKOLAI 04/08/191406 RPT#: [id number] [place] DATE: STATUS: ADM IN [facility] [address] [place] [address] END OF REPORT
--- NOTE | 2019-04-08 15:54 | MORECARE ---
CASE MANAGEMENT DISCHARGE SUMMARY PATIENT: GALINA HEBERT UNIT: [id number] ADM DATE: 04/05/19 AGE: 58 : 56 SEX: M ROOM/BED: D.2222 AUTHOR: VIRGINIE FERGUSON PHYSICIAN: REFERRING PHYSICIAN: GABBY HUGHES MD DATE OF SERVICE: 04/08/19 Discharge Plan Patient Name: GALINA HEBERT Facility: [facility]:[employer] : 1960 Planned Disposition: Home Anticipated Discharge Date: Discharge Date: Expected LOS: Initial Reviewer: [email or web address] Initial Review Date: 04/08/2019 Generated: 04/08/19 4:54 pm Comments DCP- Discharge Planning Updated by [email or web address]: Keara Wang on 04/08/19 2:[address] Patient called me to the room and states he has updated his address and his PCP is Dr. Hughes. JOLENE for [facility] [employer] critical access hospital. Patient states he is homeless until 03-18, then he will get his check and be able to return to [facility] on . I will contact [facility] so they can run his insurance to ensure Dr. Hughes has been updated in the system. CM will continue to follow and assist with discharge planning/needs. DCP- Discharge Planning Updated by [email or web address]: Keara Kathleen on 04/08/19 1:[address] Patient given the number to the [facility] in [place] [phone] to try and change address with Medicaid. He may have to go to the [facility] in person. CM will continue to follow and assist with discharge planning/needs. DCP- Discharge Planning Updated by [email or web address]: Keara Kathleen on 04/08/19 12:[address] Patient Name: GALINA HEBERT Admission Status: Elective Accout number: [id number] Admission Date: 04-05-2019 : 1960 Admission Diagnosis: Attending: GABBY HUGHES Current LOS: 3 Anticipated DC Date: Planned Disposition: Home Primary Insurance: MEDICAID [place] Discharge Planning Comments: CM met with patient and his fianc?e to discuss discharge planning. He is a transfer back from [facility], therefore nothing has changed. They have not called Medicaid number to change his address yet. I called the number from his room to have his address changed for him. He will have to have address change take effect first before he can get a primary doctor in [facility]. I informed him that without a PCP, he can not get home health. I gave him the options of going to a prison to a alf bed for at least 30 days for his IV antibiotics, but he would have to give up his check. He is not willing to give up his check. I told him another option is to come to the hospital daily for IV antibiotics. I informed him again that home health is not an option until he has a Primary Care Physician in [facility] and it is listed on the Medicaid website. CM will continue to follow and assist with discharge planning/needs. Fraud Representative: Keara Wang DCPIA - Discharge Planning Initial Assessment Updated by [email or web address]: Keara Wang on 04/08/19 1:39 pm * Is the patient Alert and Oriented? Yes * PCP No PCP * Pharmacy [facility] * Preadmission Environment Acute Care Facility * Facility Name [facility] * ADLs Partial Dependent * Partial ADLs (Assistance needed) Ambulation * Equipment Other Wheelchair * Other Equipment Left BK prosthesis * List name and contact numbers for known caregivers / representatives who currently or will assist patient after discharge: Therese barone?e - [phone] ([facility] number) Balaji vargas - [phone] * Verbal permission to speak to the caregivers and representatives has been obtained from the patient. No * Community resources currently utilized None * Additional services required to return to the preadmission environment? Yes * Can the patient safely return to the preadmission environment? Yes * Has this patient been hospitalized within the prior 30 days at any hospital? No External Providers External Provider: [facility] Next Contact Date: Service Request Date: Service Type: Resolution: Reviewer: Comments: Coverage Notice Reviewer: [id number] - Keara Wang Notice Issued Date-Time: 04/08/2019 15:51 Notice Type: Patient Choice Letter Notice Delivered To: Patient Relationship to Patient: Self Advice Clerk Name: Delivery Method: HAND - Hand Delivered Norma Days: Prior Verbal Notification: Recipient Understood Notice: Yes Recipient Signature: Yes Med Rec Note Co-signed by Attending: Coverage Notice Comment: JOLENE FOR [facility] Last DP export: 04/08/19 1:08 Patient Name: GALINA HEBERT Page 30146 at 1554 All edits/amendments must be made on the electronic document DICTATION DATE: 04/08/191553 FIELD INSURANCE SALES MANAGER: NIKOLAI 04/08/191553 RPT#: [id number] DC DATE: STATUS: ADM IN [facility] [address] [place] [address] END OF REPORT
--- NOTE | 2019-04-08 16:18 | NUR ---
I have reviewed this patient and I concur with the Shift Assessment completed by the Licensed Practical Nurse today this shift.
[2019-04-08 17:19] VITALS: BP 147/87
[2019-04-08 20:34] VITALS: BP 169/75
[2019-04-09 01:19] VITALS: BP 137/70
--- NOTE | 2019-04-09 02:54 | NUR ---
I have reviewed this patient and I concur with the Shift Assessment completed by the Licensed Practical Nurse today this shift.
[2019-04-09 05:03] VITALS: BP 136/74
[2019-04-09 05:09] LABS: BASOPHILS 0.3 % (0-2); HEMATOCRIT 40.3 % (42.0-54.0); HEMOGLOBIN 13.9 g/dL (13.5-17.5); IMMATURE GRANULOCYTES 0.3 % (0-5); LYMPHOCYTES 21.7 % (15-50); MCH 30.2 pg (26.0-34.0); MCHC 34.5 g/dL (31.0-37.0); MCV 87.4 fL (80.0-100.0); MONOCYTES 11.6 % (2-11); NEUTROPHILS 64.1 % (40-80); PLATELET COUNT 190 10x3/uL (130-400); RBC 4.61 10x6/uL (4.20-6.10); RDW 12.8 % (11.5-14.5); WBC 7.1 10x3/uL (4.8-10.8)
[2019-04-09 05:41] LABS: ALBUMIN 3.2 g/dL (3.4-5.0); ALKALINE PHOSPHATASE 57 U/L (46-116); ALT (SGPT) 18 U/L (10-68); BILIRUBIN - TOTAL 0.42 mg/dL (0.2-1.3); CALC OSMOLALITY 281 mosm/kg (275-300); CALCIUM 8.7 mg/dL (8.5-10.1); CARBON DIOXIDE 28.7 mmol/L (21.0-32.0); CHLORIDE - SERUM 102 mmol/L (98-107); CREATININE - SERUM 0.9 mg/dL (0.6-1.3); GLUCOSE 209 mg/dL (74-106); POTASSIUM - SERUM 4.2 mmol/L (3.5-5.1); PROTEIN - SERUM 6.2 g/dL (6.4-8.2); SODIUM 137 mmol/L (136-145); UREA NITROGEN 18 mg/dL (7-18); eGFR NON AFRICAN AMERICAN > 90 mL/min (90-120)
--- NOTE | 2019-04-09 07:00 | NUR ---
PT RESTING IN BED. NO SIGNS OF DISTRESS. IV TO RIGHT UPPER ARM PATENT NO REDNESS OR TENDERNESS. HAS INCISION TO RIGHT STUMP. DRESSING INTACT. COMPLAINS OF PAIN. MEDICATIONS GIVEN. DENIES ANY FURTHER NEED AT THIS TIME. CALL LIGHT IN REACH. BED LOW POSITION. FAMILY AT BEDSIDE. FAMILY AT BEDSIDE.
[2019-04-09 09:21] VITALS: BP 140/77
[2019-04-09 12:40] VITALS: BP 120/76
--- NOTE | 2019-04-09 16:47 | NUR ---
I have reviewed this patient and I concur with the Shift Assessment completed by the Licensed Practical Nurse today this shift.
[2019-04-09 16:56] VITALS: BP 124/78
--- NOTE | 2019-04-09 17:10 | NUR ---
OT NOTE: PT COMPLETED BED MOB TASKS WITH SPV. PT COMPLETED UE AROM AXS. PT COMPLETED EOB SITTING BALANCE WITH SPV. THANK YOU, JAMI HINES
--- NOTE | 2019-04-09 20:00 | NUR ---
ASSESSMENT PER FLOWSHEET. SITTING UPRIGHT IN BED TALKING CHEERFULLY TO . IV PATENT LEFT UPPER ARM OF NS AT 30CC'S/HR. PEST CONTROL OPERATOR OF DILAUDID IN USE WITH SETTINGS AT 0.2MG Q10 MINW/4MG Q4HR L/O. DRSG TO LEFT STUMP C/D/I. PT IS PATITO. BKA NOTED.
[2019-04-09 20:28] VITALS: BP 122/73
--- NOTE | 2019-04-09 21:00 | NUR ---
MEDS GIVEN PER MAR. REQUESTING NAUSEA MED. ZOFRAN 4MG IVP GIVEN FOR RELIEF OF NAUSEA. UXOC=[id number]. PT REFUSED S/S PT CONSENTED TO TAKE LANTUS DOSE OF 18 UNITS SUBC TO RT ARM. AT BEDSIDE..
--- NOTE | 2019-04-09 23:55 | NUR ---
RESTING QUIETLY AT THIS TIME. DENIES NEEDS SR UP X2 CALL LIGHT WITHIN REACH AT BEDSIDE.
[2019-04-10 01:16] VITALS: BP 117/49
--- NOTE | 2019-04-10 03:35 | NUR ---
C/O NAUSEA ZOFRAN 4MG IVP GIVEN FOR NAUSEA. NO EMESIS SEEN.
[2019-04-10 04:54] VITALS: BP 128/75
--- NOTE | 2019-04-10 05:11 | NUR ---
RESTING QUIETLY SR UP X2 CALL LIGHT WITHIN REACH.
[2019-04-10 07:04] LABS: ALBUMIN 3.5 g/dL (3.4-5.0); ALKALINE PHOSPHATASE 59 U/L (46-116); ALT (SGPT) 17 U/L (10-68); BILIRUBIN - TOTAL 0.33 mg/dL (0.2-1.3); CALC OSMOLALITY 282 mosm/kg (275-300); CALCIUM 8.9 mg/dL (8.5-10.1); CARBON DIOXIDE 29.2 mmol/L (21.0-32.0); CHLORIDE - SERUM 103 mmol/L (98-107); CREATININE - SERUM 0.9 mg/dL (0.6-1.3); POTASSIUM - SERUM 4.2 mmol/L (3.5-5.1); PROTEIN - SERUM 6.5 g/dL (6.4-8.2); SODIUM 140 mmol/L (136-145); UREA NITROGEN 17 mg/dL (7-18); eGFR NON AFRICAN AMERICAN > 90 mL/min (90-120)
[2019-04-10 07:07] LABS: BASOPHILS 0.2 % (0-2); GLUCOSE 129 mg/dL (74-106); HEMOGLOBIN 14.8 g/dL (13.5-17.5); IMMATURE GRANULOCYTES 0.2 % (0-5); LYMPHOCYTES 27.2 % (15-50); MCH 29.7 pg (26.0-34.0); MCHC 33.6 g/dL (31.0-37.0); MCV 88.4 fL (80.0-100.0); MEAN PLATELET VOLUME 11.6 fL (7.4-10.4); MONOCYTES 9.4 % (2-11); RBC 4.98 10x6/uL (4.20-6.10); RDW 13.1 % (11.5-14.5); WBC 5.6 10x3/uL (4.8-10.8)
[2019-04-10 07:24] LABS: PLATELET COUNT 148 10x3/uL (130-400)
--- NOTE | 2019-04-10 07:40 | NUR ---
ALERT AND ORIENTED. LUNGS CLEAR BILATERALLY. HEART SOUNDS S1 AND S2 HEARD IN ALL HAYNES. BOWEL SOUNDS ACTIVE X 4. BILATERAL BKA. DRSG TO RIGHT BKA C/D/I. IV TO AL PATENT WITHOUT REDNESS. DENIES NEEDS. BED LOW. CALL MAGAÑA AND PERSONAL ITEMS IN REACH. WILL CONTINUE TO MONITOR.
[2019-04-10 08:48] VITALS: BP 157/73
--- NOTE | 2019-04-10 10:42 | NUR ---
RESTING IN BED. DENIES NEEDS. WILL CONTINUE TO MONITOR.
--- NOTE | 2019-04-10 11:31 | MORECARE ---
CASE MANAGEMENT DISCHARGE SUMMARY PATIENT: GALINA HEBERT UNIT: [id number] ADM DATE: 04/05/19 AGE: 58 : 56 SEX: M ROOM/BED: D.2222 AUTHOR: PHYLLISDOC PHYSICIAN: REFERRING PHYSICIAN: GABBY HUGHES MD DATE OF SERVICE: 04/10/19 Discharge Plan Patient Name: GALINA HEBERT Facility: [facility]:[place] : 1960 Planned Disposition: Home Anticipated Discharge Date: Discharge Date: Expected LOS: Initial Reviewer: [id number] Initial Review Date: 04/08/2019 Generated: 04/10/19 12:31 pm Comments DCP- Discharge Planning Updated by [email or web address]: Keara Wang on 04/10/19 10:[address] Received a call from Karyn with [employer] [facility]. She states because the patient has not been seen by Dr. Hughes in the office, she will be unable to sign off on home health orders at this time. When discharged, if f/u can be made with Dr. Hughes and once he is back at [employer], or wherever he makes home (cannot be homeless), they will be able to set up home health with IV antibiotics. Plan for now will be outpatient IV antibiotics daily with a bus ticket to and from the hospital. CM will give patient a list of homeless shelters and bus tickets. CM will continue to follow and assist with discharge planning/needs. DCP- Discharge Planning Updated by [email or web address]: Keara Wang on 04/08/19 2:[address] Patient called me to the room and states he has updated his address and his PCP is Dr. Hughes. JOLENE for [employer] [facility] and [place] signed. Patient states he is homeless until 03-18, then he will get his check and be able to return to [employer] on . I will contact [employer] [facility] so they can run his insurance to ensure Dr. Hughes has been updated in the system. CM will continue to follow and assist with discharge planning/needs. DCP- Discharge Planning Updated by [email or web address]: Keara Wang on 04/08/19 1:[address] Patient given the number to the [facility] in [place] [phone] to try and change address with Medicaid. He may have to go to the [facility] in person. CM will continue to follow and assist with discharge planning/needs. DCP- Discharge Planning Updated by [email or web address]: Keara Wang on 04/08/19 12:[address] Patient Name: GALINA HEBERT Admission Status: Elective Accout number: [id number] Admission Date: 04-05-2019 : 1960 Admission Diagnosis: Attending: GABBY HUGHES Current LOS: 3 Anticipated DC Date: Planned Disposition: Home Primary Insurance: MEDICAID [place] Discharge Planning Comments: CM met with patient and his fianc?e to discuss discharge planning. He is a transfer back from [facility], therefore nothing has changed. They have not called Medicaid number to change his address yet. I called the number from his room to have his address changed for him. He will have to have address change take effect first before he can get a primary doctor in [facility]. I informed him that without a PCP, he can not get home health. I gave him the options of going to a custodial to a alf bed for at least 30 days for his IV antibiotics, but he would have to give up his check. He is not willing to give up his check. I told him another option is to come to the hospital daily for IV antibiotics. I informed him again that home health is not an option until he has a Primary Care Physician in [facility] and it is listed on the Medicaid website. CM will continue to follow and assist with discharge planning/needs. Health And Social Care Teacher: Keara Wang DCPIA - Discharge Planning Initial Assessment Updated by [id number]: Keara Wang on 04/08/19 1:39 pm * Is the patient Alert and Oriented? Yes * PCP No PCP * Pharmacy [facility] [address] * Preadmission Environment Acute Care Facility * Facility Name [facility] * ADLs Partial Dependent * Partial ADLs (Assistance needed) Ambulation * Equipment Other Wheelchair * Other Equipment Left BK prosthesis * List name and contact numbers for known caregivers / representatives who currently or will assist patient after discharge: Therese Potter - lizabeth?e - [phone] ([facility] number) Balaji Hebert - son - [phone] * Verbal permission to speak to the caregivers and representatives has been obtained from the patient. No * Community resources currently utilized None * Additional services required to return to the preadmission environment? Yes * Can the patient safely return to the preadmission environment? Yes * Has this patient been hospitalized within the prior 30 days at any hospital? No Coverage Notice Reviewer: [email or web address] Marco Antonio Kearabarbara Wang Notice Issued Date-Time: 04/08/2019 15:51 Notice Type: Patient Choice Letter Notice Delivered To: Patient Relationship to Patient: Self Body Shop Manager Name: Delivery Method: HAND - Hand Delivered Norma Days: Prior Verbal Notification: Recipient Understood Notice: Yes Recipient Signature: Yes Med Rec Note Co-signed by Attending: Coverage Notice Comment: JOLENE FOR [facility] Last DP export: 04/08/19 2:54 Patient Name: GALINA HEBERT Page 07012 at 1131 All edits/amendments must be made on the electronic document DICTATION DATE: 04/10/19 113 PLANETARIUM TECHNICIAN: NIKOLAI 04/10/19 1131 RPT#: [id number] DC DATE: STATUS: ADM IN [facility] [address] [place] [address] END OF REPORT
--- NOTE | 2019-04-10 11:34 | NUR ---
WEIGHT LOSS PHYSICIAN DISCONTINUED PER ORDER. NEW PO PRN MEDICATIONS EXPLAINED TO PATIENT. VERBALIZED UNDERSTANDING. LEESA WILLIS IN ROOM EXPLAINING CONTINUED NEED FOR ABX, POSSIBLE PICC LINE PLACEMENT, AND POSSIBLE DISCHARGE. VERBALIZED UNDERSTANDING.
--- NOTE | 2019-04-10 12:40 | NUR ---
RESTING IN BED. DENIES NEEDS. WILL CONTINUE TO MONITOR.
[2019-04-10 12:57] VITALS: BP 137/67
--- NOTE | 2019-04-10 14:13 | MORECARE ---
CASE MANAGEMENT DISCHARGE SUMMARY PATIENT: GALINA HEBERT UNIT: [id number] ADM DATE: 04/05/19 AGE: 58 : 56 SEX: M ROOM/BED: D.2222 AUTHOR: PHYLLISDOC PHYSICIAN: REFERRING PHYSICIAN: GABBY HUGHES MD DATE OF SERVICE: 04/10/19 Discharge Plan Patient Name: GALINA HEBERT Facility: [facility]:[place] : 1960 Planned Disposition: Home Anticipated Discharge Date: Discharge Date: Expected LOS: Initial Reviewer: [email or web address] Initial Review Date: 04/08/2019 Generated: 04/10/19 3:12 pm Comments DCP- Discharge Planning Updated by [id number]: Keara Wang on 04/10/19 10:[address] Received a call from Karyn with [facility]. She states because the patient has not been seen by Dr. Hughes in the office, she will be unable to sign off on home health orders at this time. When discharged, if f/u can be made with Dr. Hughes and once he is back at [facility], or wherever he makes home (cannot be homeless), they will be able to set up home health with IV antibiotics. Plan for now will be outpatient IV antibiotics daily with a bus ticket to and from the hospital. CM will give patient a list of homeless shelters and bus tickets. CM will continue to follow and assist with discharge planning/needs. DCP- Discharge Planning Updated by [id number]: Keara Wang on 04/08/19 2:[address] Patient called me to the room and states he has updated his address and his PCP is Dr. Hughes. JOLENE for [employer] [facility] and [place] signed. Patient states he is homeless until 03-18, then he will get his check and be able to return to [facility] on . I will contact [facility] [employer] [facility] so they can run his insurance to ensure Dr. Hughes has been updated in the system. CM will continue to follow and assist with discharge planning/needs. DCP- Discharge Planning Updated by [id number]: Keara Wang on 04/08/19 1:[address] Patient given the number to the [facility] in [place] [phone] to try and change address with Medicaid. He may have to go to the [facility] in person. CM will continue to follow and assist with discharge planning/needs. DCP- Discharge Planning Updated by [id number]: Keara Wang on 04/08/19 12:[address] Patient Name: GALINA HEBERT Admission Status: Elective Accout number: [id number] Admission Date: 04-05-2019 : 1960 Admission Diagnosis: Attending: GABBY HUGHES Current LOS: 3 Anticipated DC Date: Planned Disposition: Home Primary Insurance: MEDICAID [place] Discharge Planning Comments: CM met with patient and his fianc?e to discuss discharge planning. He is a transfer back from [facility], therefore nothing has changed. They have not called Medicaid number to change his address yet. I called the number from his room to have his address changed for him. He will have to have address change take effect first before he can get a primary doctor in [facility]. I informed him that without a PCP, he can not get home health. I gave him the options of going to a senior care to a longterm bed for at least 30 days for his IV antibiotics, but he would have to give up his check. He is not willing to give up his check. I told him another option is to come to the hospital daily for IV antibiotics. I informed him again that home health is not an option until he has a Primary Care Physician in [facility] and it is listed on the Medicaid website. CM will continue to follow and assist with discharge planning/needs. Biometrics Analyst: Keara Wang DCPIA - Discharge Planning Initial Assessment Updated by [id number]: Keara Wang on 04/08/19 1:39 pm * Is the patient Alert and Oriented? Yes * PCP No PCP * Pharmacy [facility] [address] * Preadmission Environment Acute Care Facility * Facility Name [facility] * ADLs Partial Dependent * Partial ADLs (Assistance needed) Ambulation * Equipment Other Wheelchair * Other Equipment Left BK prosthesis * List name and contact numbers for known caregivers / representatives who currently or will assist patient after discharge: Therese Potter - lizabeth?e - [phone] ([facility] number) Balaji Hebert - son - [phone] * Verbal permission to speak to the caregivers and representatives has been obtained from the patient. No * Community resources currently utilized None * Additional services required to return to the preadmission environment? Yes * Can the patient safely return to the preadmission environment? Yes * Has this patient been hospitalized within the prior 30 days at any hospital? No External Providers External Provider: [facility] Next Contact Date: Service Request Date: Service Type: Resolution: Reviewer: Comments: Coverage Notice Reviewer: [id number] Marco Antonio Keara Browndiane Notice Issued Date-Time: 04/08/2019 15:51 Notice Type: Patient Choice Letter Notice Delivered To: Patient Relationship to Patient: Self Supervisor Sewing Department Name: Delivery Method: HAND - Hand Delivered Norma Days: Prior Verbal Notification: Recipient Understood Notice: Yes Recipient Signature: Yes Med Rec Note Co-signed by Attending: Coverage Notice Comment: [facility] Last DP export: 04/10/19 10:31 Patient Name: GALINA HEBERT Page [id number] at 1413 All edits/amendments must be made on the electronic document DICTATION DATE: 04/10/191411 PAINTER AND DECORATOR APPRENTICE: NIKOLAI 04/10/191411 RPT#: [id number] DC DATE: STATUS: ADM IN [facility] [address] [place] [address] END OF REPORT
--- NOTE | 2019-04-10 14:31 | MORECARE ---
CASE MANAGEMENT DISCHARGE SUMMARY PATIENT: GALINA HEBERT UNIT: [id number] ADM DATE: 04/05/19 AGE: 58 : 56 SEX: M ROOM/BED: D.2222 AUTHOR: PHYLLISDOC PHYSICIAN: REFERRING PHYSICIAN: GABBY HUGHES MD DATE OF SERVICE: 04/10/19 Discharge Plan Patient Name: GALINA HEBERT Facility: [facility]:[place] : 1960 Planned Disposition: Home Anticipated Discharge Date: Discharge Date: Expected LOS: Initial Reviewer: [email or web address] Initial Review Date: 04/08/2019 Generated: 04/10/19 3:31 pm Comments DCP- Discharge Planning Updated by [id number]: Kearabarbara Wang on 04/10/19 1:[address] I met with patient per request. He states he cannot go home because he is homeless. I gave him the homeless shelters. He can go to [facility] between [phone] and must leave by 7am. His SO cannot stay there, it is a men's custodial. [facility] is full. The closest Snf for females is [facility] in [place] and I gave her the number. She has been there before. They do not want to go to separate homeless shelters. He asked again about rehab. Medicaid does not have rehab benefits. I have called Teena at [facility] and she states he does not have a diagnosis for Medicaid to pay for his rehab. He agrees to referral to [facility] even though he may have to give up his check. I called leilani Hernandez for [facility], and referral faxed. She states she will come to the hospital tomorrow to see the patient. CM will continue to follow and assist with discharge planning/needs. DCP- Discharge Planning Updated by [id number]: Keara Wang on 04/10/19 10:[address] Received a call from Karyn with [facility]. She states because the patient has not been seen by Dr. Hughes in the office, she will be unable to sign off on home health orders at this time. When discharged, if f/u can be made with Dr. Hughes and once he is back at [facility], or wherever he makes home (cannot be homeless), they will be able to set up home health with IV antibiotics. Plan for now will be outpatient IV antibiotics daily with a bus ticket to and from the hospital. CM will give patient a list of homeless shelters and bus tickets. CM will continue to follow and assist with discharge planning/needs. DCP- Discharge Planning Updated by [id number]: Keara Wang on 04/08/19 2:[address] Patient called me to the room and states he has updated his address and his PCP is Dr. Hughes. JOLENE for [employer] [facility] and [place] signed. Patient states he is homeless until 03-18, then he will get his check and be able to return to [facility] on . I will contact [employer] [facility] so they can run his insurance to ensure Dr. Hughes has been updated in the system. CM will continue to follow and assist with discharge planning/needs. DCP- Discharge Planning Updated by [id number]: Keara Wang on 04/08/19 1:[address] Patient given the number to the [facility] in [place] [phone] to try and change address with Medicaid. He may have to go to the [facility] in person. CM will continue to follow and assist with discharge planning/needs. DCP- Discharge Planning Updated by [email or web address]: Keara Wang on 04/08/19 12:[address] Patient Name: GALINA HEBERT Admission Status: Elective Accout number: [id number] Admission Date: 04-05-2019 : 1960 Admission Diagnosis: Attending: GABBY HUGHES Current LOS: 3 Anticipated DC Date: Planned Disposition: Home Primary Insurance: MEDICAID [place] Discharge Planning Comments: CM met with patient and his fianc?e to discuss discharge planning. He is a transfer back from [facility], therefore nothing has changed. They have not called Medicaid number to change his address yet. I called the number from his room to have his address changed for him. He will have to have address change take effect first before he can get a primary doctor in [facility]. I informed him that without a PCP, he can not get home health. I gave him the options of going to a halfway to a m[facility] bed for at least 30 days for his IV antibiotics, but he would have to give up his check. He is not willing to give up his check. I told him another option is to come to the hospital daily for IV antibiotics. I informed him again that home health is not an option until he has a Primary Care Physician in [facility] and it is listed on the Medicaid website. CM will continue to follow and assist with discharge planning/needs. Popped Corn Oven Attendant: Keara Wang DCPIA - Discharge Planning Initial Assessment Updated by [id number]: Keara Wang on 04/08/19 1:39 pm * Is the patient Alert and Oriented? Yes * PCP No PCP * Pharmacy [facility] [address] * Preadmission Environment Acute Care Facility * Facility Name [facility] * ADLs Partial Dependent * Partial ADLs (Assistance needed) Ambulation * Equipment Other Wheelchair * Other Equipment Left BK prosthesis * List name and contact numbers for known caregivers / representatives who currently or will assist patient after discharge: Therese barone?e - [phone] ([facility] number) Balaji Hebert - son - [phone] * Verbal permission to speak to the caregivers and representatives has been obtained from the patient. No * Community resources currently utilized None * Additional services required to return to the preadmission environment? Yes * Can the patient safely return to the preadmission environment? Yes * Has this patient been hospitalized within the prior 30 days at any hospital? No Coverage Notice Reviewer: [email or web address] Wang Notice Issued Date-Time: 04/08/2019 15:51 Notice Type: Patient Choice Letter Notice Delivered To: Patient Relationship to Patient: Self Shower Room Attendant Name: Delivery Method: HAND - Hand Delivered Norma Days: Prior Verbal Notification: Recipient Understood Notice: Yes Recipient Signature: Yes Med Rec Note Co-signed by Attending: Coverage Notice Comment: [facility] Reviewer: [id number] Marco Antonio Wang Notice Issued Date-Time: 04/10/2019 14:16 Notice Type: Patient Choice Letter Notice Delivered To: Patient Relationship to Patient: Self Shower Room Attendant Name: Delivery Method: HAND - Hand Delivered Norma Days: Prior Verbal Notification: Recipient Understood Notice: Yes Recipient Signature: Yes Med Rec Note Co-signed by Attending: Coverage Notice Comment: JOLENE for [facility] Last DP export: 04/10/19 1:13 Patient Name: GALINA HEBERT Page [id number] at 1431 All edits/amendments must be made on the electronic document DICTATION DATE: 04/10/191429 FLATWORK CATCHER: NIKOLAI 04/10/191429 RPT#: [id number] DC DATE: STATUS: ADM IN [facility] [address] [place] [address] END OF REPORT
--- NOTE | 2019-04-10 15:30 | NUR ---
OT NOTE: PT CONTINUES TO C/O SEVERE PAIN IN R LE. STATES THAT HE SAT UP ON EOB AND SINCE THEN, HIS PAIN HAS BEEN MUCH WORSE. DURING THIS TIME, NURSING INFORMED PT THAT HIS PLEXIGLAS FORMER WOULD BE REMOVED. PT BECAME VERY AGITATED AFTER HEARING THIS. PT CONTINUALLY STATING THAT HE WILL NOT TOLERATE THIS KIND OF PAIN. ATTEMPTED TO EXPLAIN TO PT THAT HE WILL STILL BE RECEIVING PAIN MEDS, BUT HE WAS NOT HEARING OF IT. D/W PT THE BENEFITS OF CONTINUED THERAPY, EITHER FROM IP REHAB OR SNF.. PT REFUSED BOTH. STATED THAT HE COULD DO IT HIMSELF AND THAT HE HAD THERAPY BEFORE BUT IT DIDNT HELP. 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 PT IS APPARENTLY HOMELESS AND DOES NOT REALIZE THE DIFFICULTIES HE WILL FACE UPON DC WITHOUT THERAPY. HOWEVER, HE IS NOT INTERESTED IN DISCUSSING AT THIS TIME. GINA GIRALDO, OTR/L
[2019-04-10 16:43] VITALS: BP 140/77
--- NOTE | 2019-04-10 17:03 | NUR ---
OT NOTE: PT IS IRATE ABOUT DELIVERY MODE OF PAIN MEDICATIONS. PT STATES HE IS IN PAIN. NURSING NOTIFIED. PT IRATE WITH NURSE STAFF. PT EXHIBITED SELF LIMITING BEHAVIOR. NURSE STATED SHE WOULD NOTIFY DOCTOR THAT PT WANTS CONSULT. PT DID MINIMAL BED MOB TASKS . PT COMPLETED BUE AROM EXS. THANK YOU, JAMI HINES
[2019-04-10 19:00] VITALS: BP 124/79
--- NOTE | 2019-04-10 21:25 | NUR ---
GIVEN 18 UNITS OF LANTUS. WHEN SCANNED IT DID NOT ASK FOR COSIGNER. 2ND FLOOR NURSE [id number] WITNESS INSULIN.
[2019-04-11 01:00] VITALS: BP 121/68
--- NOTE | 2019-04-11 02:38 | NUR ---
PT RESTING IN BED. EYES CLOSED. NO SIGNS OF DISTRESS. BREATHING EVEN AND UNLABORED. IV SITE LT UPPER ARM PICC. DRESSING CLEAN DRY AND INTACT. NO SIGNS OF INFECTION. BOWEL SOUNDS ACTIVE. LUNG SOUNDS CLEAR. RT KNEE DRESSING CLEAN DRY AND INTACT. WILL CONTINUE PLAN OF CARE. CALL LIGHT IN REACH. BED LOWERED AND LOCKED. AT BEDSIDE.
--- NOTE | 2019-04-11 03:07 | NUR ---
I have reviewed this patient and I concur with the Shift Assessment completed by the Licensed Practical Nurse today this shift.
[2019-04-11 05:00] VITALS: BP 150/66
[2019-04-11 06:59] LABS: BASOPHILS 0.3 % (0-2); EOSINOPHILS 3.9 % (0-7); HEMOGLOBIN 14.5 g/dL (13.5-17.5); IMMATURE GRANULOCYTES 0.2 % (0-5); LYMPHOCYTES 25.6 % (15-50); MCHC 33.7 g/dL (31.0-37.0); MCV 88.8 fL (80.0-100.0); MEAN PLATELET VOLUME 10.3 fL (7.4-10.4); MONOCYTES 8.9 % (2-11); NEUTROPHILS 61.1 % (40-80); PLATELET COUNT 177 10x3/uL (130-400); RBC 4.84 10x6/uL (4.20-6.10); RDW 12.9 % (11.5-14.5); WBC 6.4 10x3/uL (4.8-10.8)
[2019-04-11 07:05] LABS: CALC OSMOLALITY 283 mosm/kg (275-300); CALCIUM 8.6 mg/dL (8.5-10.1); CARBON DIOXIDE 27.1 mmol/L (21.0-32.0); CHLORIDE - SERUM 104 mmol/L (98-107); CREATININE - SERUM 0.9 mg/dL (0.6-1.3); GLUCOSE 145 mg/dL (74-106); POTASSIUM - SERUM 4.3 mmol/L (3.5-5.1); SODIUM 139 mmol/L (136-145); UREA NITROGEN 20 mg/dL (7-18); eGFR NON AFRICAN AMERICAN > 90 mL/min (90-120)
--- NOTE | 2019-04-11 07:15 | NUR ---
ALERT AND ORIENTED. LUNGS CLEAR BILATERALLY. HEART SOUNDS S1 AND S2 HEARD IN ALL HAYNES. BOWEL SOUNDS ACTIVE X 4. DANYELL INTACT TO RIGHT BKA. DRSG CHANGED PER ORDER. AL PICC PATENT WITHOUT REDNESS. DENIES NEEDS. BED LOW. CALL MAGAÑA AND PERSONAL ITEMS IN REACH. WILL CONTINUE TO MONITOR.
[2019-04-11 08:45] VITALS: BP 120/75
--- NOTE | 2019-04-11 10:44 | NUR ---
OT NOTE: PT CONT TO C/O SEVERE PAIN. STATES THAT HE NEVER HAD THIS TYPE OF PAIN WITH L BKA; STATES THAT THE PAIN DOES NOT STOP AND FEELS LIKE IT IS IN THE BONE. REPORTS THAT CURRENT PAIN MEDS DO NOT HELP. PT REPORTED THAT HE SAT UP ON EOB AND TRANSFERRED OVER TO LAST NIGHT, BUT THE PAIN WAS SO SEVERE THAT HE HAD TO LIE BACK DOWN AND ELEVATE HIS R LEG. PT CONTINUALLY STATES THAT HE WANTS TO PARTIICPATE IN THERAPY BUT CANT BECAUSE OF THE PAIN. PT ABLE TO DEMONSTRATED LE/UE EXS THAT HE PERFORMS IN BED. GINA GIRALDO, OTR/L
[2019-04-11 12:43] VITALS: BP 131/84
--- NOTE | 2019-04-11 12:44 | NUR ---
NUTRITION F/U PT TOLERATING ADA DIET, GOOD INTAKE MOST MEALS. WILL CONTINUE TO PROVIDE DIET, MONITOR PT PROGRESS. RD FOLLOWING
--- NOTE | 2019-04-11 13:12 | NUR ---
RESTING IN BED. REQUESTED AND GIVEN SUGAR FREE ICE CREAM. DENIES NEEDS. WILL CONTINUE TO MONITOR.
--- NOTE | 2019-04-11 14:54 | MORECARE ---
CASE MANAGEMENT DISCHARGE SUMMARY PATIENT: GALINA HEBERT UNIT: [id number] ADM DATE: 04/05/19 AGE: 58 : 56 SEX: M ROOM/BED: D.2222 AUTHOR: PHYLLIS,DOC PHYSICIAN: REFERRING PHYSICIAN: GABBY HUGHES MD DATE OF SERVICE: 04/11/19 Discharge Plan Patient Name: GALINA HEBERT Facility: [facility]:[place] : 1960 Planned Disposition: Home Anticipated Discharge Date: Discharge Date: Expected LOS: Initial Reviewer: [email or web address] Initial Review Date: 04/08/2019 Generated: 04/11/19 3:54 pm Comments DCP- Discharge Planning Updated by [email or web address]: Keara Wang on 04/11/19 1:[address] [facility] does not have a private room, so they cannot allow patient's significant other to spend the night with him. Patient states he would like me to try and find another facility that can accommodate him. I spoke with Keaton at [facility] and they also do not have a private room to accommodate his significant other. I left a message with Heike with [facility]. I will reach out to other facilities in the area. CM will continue to follow and assist with discharge planning/needs. DCP- Discharge Planning Updated by [id number]: Keara Wang on 04/10/19 1:[address] I met with patient per request. He states he cannot go home because he is homeless. I gave him the homeless shelters. He can go to [facility] between [phone] and must leave by 7am. His SO cannot stay there, it is a men's nursing home. [facility] is full. The closest Fdc for females is [facility] in [place] and I gave her the number. She has been there before. They do not want to go to separate homeless shelters. He asked again about rehab. Medicaid does not have rehab benefits. I have called Teena at [facility] and she states he does not have a diagnosis for Medicaid to pay for his rehab. He agrees to referral to [facility] even though he may have to give up his check. I called leilani Hernandez for [facility], and referral faxed. She states she will come to the hospital tomorrow to see the patient. CM will continue to follow and assist with discharge planning/needs. DCP- Discharge Planning Updated by [id number]: Keara Wang on 04/10/19 10:[address] Received a call from Karyn with [email or web address]. She states because the patient has not been seen by Dr. Hughes in the office, she will be unable to sign off on home health orders at this time. When discharged, if f/u can be made with Dr. Hughes and once he is back at [facility], or wherever he makes home (cannot be homeless), they will be able to set up home health with IV antibiotics. Plan for now will be outpatient IV antibiotics daily with a bus ticket to and from the hospital. CM will give patient a list of homeless shelters and bus tickets. CM will continue to follow and assist with discharge planning/needs. DCP- Discharge Planning Updated by [id number]: Keara Wang on 04/08/19 2:[address] Patient called me to the room and states he has updated his address and his PCP is Dr. Hughes. JOLENE for [email or web address] and [place] signed. Patient states he is homeless until 03-18, then he will get his check and be able to return to [facility] on . I will contact [email or web address] so they can run his insurance to ensure Dr. Hughes has been updated in the system. CM will continue to follow and assist with discharge planning/needs. DCP- Discharge Planning Updated by [id number]: Keara Wang on 04/08/19 1:[address] Patient given the number to the [facility] in [place] [phone] to try and change address with Medicaid. He may have to go to the [facility] in person. CM will continue to follow and assist with discharge planning/needs. DCP- Discharge Planning Updated by [id number]: Keara Wang on 04/08/19 12:[address] Patient Name: GALINA HEBERT Admission Status: Elective Accout number: [id number] Admission Date: 04-05-2019 : 1960 Admission Diagnosis: Attending: GABBY HUGHES Current LOS: 3 Anticipated DC Date: Planned Disposition: Home Primary Insurance: MEDICAID [place] Discharge Planning Comments: CM met with patient and his fianc?e to discuss discharge planning. He is a transfer back from [facility], therefore nothing has changed. They have not called Medicaid number to change his address yet. I called the number from his room to have his address changed for him. He will have to have address change take effect first before he can get a primary doctor in [facility]. I informed him that without a PCP, he can not get home health. I gave him the options of going to a senior living to a supervisor intermediates bed for at least 30 days for his IV antibiotics, but he would have to give up his check. He is not willing to give up his check. I told him another option is to come to the hospital daily for IV antibiotics. I informed him again that home health is not an option until he has a Primary Care Physician in [facility] and it is listed on the Medicaid website. CM will continue to follow and assist with discharge planning/needs. Camp Dining Room Attendant: Keara Wang DCPIA - Discharge Planning Initial Assessment Updated by [email or web address]: Keara Wang on 04/08/19 1:39 pm * Is the patient Alert and Oriented? Yes * PCP No PCP * [facility]acy [facility] * Preadmission Environment Acute Care Facility * Facility Name [facility] * ADLs Partial Dependent * Partial ADLs (Assistance needed) Ambulation * Equipment Other Wheelchair * Other Equipment Left BK prosthesis * List name and contact numbers for known caregivers / representatives who currently or will assist patient after discharge: Therese Potter - lizabeth?e - [phone] ([facility] number) Balaji Hebert - sam - [phone] * Verbal permission to speak to the caregivers and representatives has been obtained from the patient. No * Community resources currently utilized None * Additional services required to return to the preadmission environment? Yes * Can the patient safely return to the preadmission environment? Yes * Has this patient been hospitalized within the prior 30 days at any hospital? No External Providers External Provider: [facility] Next Contact Date: Service Request Date: Service Type: Resolution: Reviewer: Comments: Coverage Notice Reviewer: [email or web address] - Keara Wang Notice Issued Date-Time: 04/08/2019 15:51 Notice Type: Patient Choice Letter Notice Delivered To: Patient Relationship to Patient: Self Leguillon Debeader Name: Delivery Method: HAND - Hand Delivered Norma Days: Prior Verbal Notification: Recipient Understood Notice: Yes Recipient Signature: Yes Med Rec Note Co-signed by Attending: Coverage Notice Comment: [facility] Reviewer: [id number] Marco Antonio Wang Notice Issued Date-Time: 04/10/2019 14:16 Notice Type: Patient Choice Letter Notice Delivered To: Patient Relationship to Patient: Self Leguillon Debeader Name: Delivery Method: HAND - Hand Delivered Norma Days: Prior Verbal Notification: Recipient Understood Notice: Yes Recipient Signature: Yes Med Rec Note Co-signed by Attending: Coverage Notice Comment: JOLENE for [facility] [employer] DP export: 04/10/19 1:31 Patient Name: GALINA HEBERT Page 49218 at 1454 All edits/amendments must be made on the electronic document DICTATION DATE: 04/11/191453 TALENT DEVELOPMENT DIRECTOR: NIKOLAI 04/11/191453 RPT#: [id number] DC DATE: STATUS: ADM IN [facility] [address] [place] [address] END OF REPORT
--- NOTE | 2019-04-11 15:03 | MORECARE ---
CASE MANAGEMENT DISCHARGE SUMMARY PATIENT: GALINA HEBERT UNIT: [id number] ADM DATE: 04/05/19 AGE: 58 : 56 SEX: M ROOM/BED: D.2222 AUTHOR: PHYLLIS,DOC PHYSICIAN: REFERRING PHYSICIAN: GABBY HUGHES MD DATE OF SERVICE: 04/11/19 Discharge Plan Patient Name: GALINA HEBERT Facility: [facility]:[place] : 1960 Planned Disposition: Home Anticipated Discharge Date: Discharge Date: Expected LOS: Initial Reviewer: [id number] Initial Review Date: 04/08/2019 Generated: 04/11/19 4:03 pm Comments DCP- Discharge Planning Updated by [id number]: Keara Wang on 04/11/19 1:[address] I have also faxed referral to [facility], [place] and [facility]. CM will continue to follow and assist with discharge planning/needs. DCP- Discharge Planning Updated by [email or web address]: Keara Wang on 04/11/19 1:[address] [facility] does not have a private room, so they cannot allow patient's significant other to spend the night with him. Patient states he would like me to try and find another facility that can accommodate him. I spoke with Keaton at [facility] and they also do not have a private room to accommodate his significant other. I left a message with Heike with [facility]. I will reach out to other facilities in the area. CM will continue to follow and assist with discharge planning/needs. DCP- Discharge Planning Updated by [id number]: Keara Wang on 04/10/19 1:[address] I met with patient per request. He states he cannot go home because he is homeless. I gave him the homeless shelters. He can go to [facility] between [phone] and must leave by 7am. His SO cannot stay there, it is a men's halfway. [facility] is full. The closest Half-Way for females is [facility] in [place] and I gave her the number. She has been there before. They do not want to go to separate homeless shelters. He asked again about rehab. Medicaid does not have rehab benefits. I have called Teena at [facility] and she states he does not have a diagnosis for Medicaid to pay for his rehab. He agrees to referral to [facility] even though he may have to give up his check. I called leilani Hernandez for [facility], and referral faxed. She states she will come to the hospital tomorrow to see the patient. CM will continue to follow and assist with discharge planning/needs. DCP- Discharge Planning Updated by [id number]: Keara Wang on 04/10/19 10:[address] Received a call from Karyn with [facility]. She states because the patient has not been seen by Dr. Hughes in the office, she will be unable to sign off on home health orders at this time. When discharged, if f/u can be made with Dr. Hughes and once he is back at [facility], or wherever he makes home (cannot be homeless), they will be able to set up home health with IV antibiotics. Plan for now will be outpatient IV antibiotics daily with a bus ticket to and from the hospital. CM will give patient a list of homeless shelters and bus tickets. CM will continue to follow and assist with discharge planning/needs. DCP- Discharge Planning Updated by [id number]: Keara Wang on 04/08/19 2:[address] Patient called me to the room and states he has updated his address and his PCP is Dr. Hughes. JOLENE for [facility] and [place] signed. Patient states he is homeless until 03-18, then he will get his check and be able to return to [facility] on . I will contact [facility] so they can run his insurance to ensure Dr. Hughes has been updated in the system. CM will continue to follow and assist with discharge planning/needs. DCP- Discharge Planning Updated by [id number]: Keara Wang on 04/08/19 1:[address] Patient given the number to the [facility] in [place] [phone] to try and change address with Medicaid. He may have to go to the [facility] in person. CM will continue to follow and assist with discharge planning/needs. DCP- Discharge Planning Updated by [id number]: Keara Wang on 04/08/19 12:[address] Patient Name: GALINA HEBERT Admission Status: Elective Accout number: [id number] Admission Date: 04-05-2019 : 1960 Admission Diagnosis: Attending: GABBY HUGHES Current LOS: 3 Anticipated DC Date: Planned Disposition: Home Primary Insurance: MEDICAID [place] Discharge Planning Comments: CM met with patient and his fianc?e to discuss discharge planning. He is a transfer back from [facility], therefore nothing has changed. They have not called Medicaid number to change his address yet. I called the number from his room to have his address changed for him. He will have to have address change take effect first before he can get a primary doctor in [facility]. I informed him that without a PCP, he can not get home health. I gave him the options of going to a custodial to a adjunct faculty for medical terminology bed for at least 30 days for his IV antibiotics, but he would have to give up his check. He is not willing to give up his check. I told him another option is to come to the hospital daily for IV antibiotics. I informed him again that home health is not an option until he has a Primary Care Physician in [facility] and it is listed on the Medicaid website. CM will continue to follow and assist with discharge planning/needs. Cabinet Maker: Keara Wang DCPIA - Discharge Planning Initial Assessment Updated by [email or web address]: Keara Wang on 04/08/19 1:39 pm * Is the patient Alert and Oriented? Yes * PCP No PCP * Pharmacy [facility] on [address] * Preadmission Environment Acute Care Facility * Facility Name [facility] * ADLs Partial Dependent * Partial ADLs (Assistance needed) Ambulation * Equipment Other Wheelchair * Other Equipment Left BK prosthesis * List name and contact numbers for known caregivers / representatives who currently or will assist patient after discharge: Therese Coylestormy Marco Antonio barone?e - [phone] ([employer] number) Balaji Hebert - [facility] - [phone] * Verbal permission to speak to the caregivers and representatives has been obtained from the patient. No * Community resources currently utilized None * Additional services required to return to the preadmission environment? Yes * Can the patient safely return to the preadmission environment? Yes * Has this patient been hospitalized within the prior 30 days at any hospital? No External Providers External Provider: [facility] Next Contact Date: Service Request Date: Service Type: Resolution: Reviewer: Comments: Coverage Notice Reviewer: [id number] Marco Antonio Wang Notice Issued Date-Time: 04/08/2019 15:51 Notice Type: Patient Choice Letter Notice Delivered To: Patient Relationship to Patient: Self Occupational Rehabilitation Aide Name: Delivery Method: HAND - Hand Delivered Norma Days: Prior Verbal Notification: Recipient Understood Notice: Yes Recipient Signature: Yes Med Rec Note Co-signed by Attending: Coverage Notice Comment: JOLENE FOR [facility] Reviewer: [id number] Marco Antonio aWng Notice Issued Date-Time: 04/10/2019 14:16 Notice Type: Patient Choice Letter Notice Delivered To: Patient Relationship to Patient: Self Occupational Rehabilitation Aide Name: Delivery Method: HAND - Hand Delivered Norma Days: Prior Verbal Notification: Recipient Understood Notice: Yes Recipient Signature: Yes Med Rec Note Co-signed by Attending: Coverage Notice Comment: JOLENE for [facility] Last DP export: 04/11/19 1:54 Patient Name: GALINA HEBERT Page [id number] at 1503 All edits/amendments must be made on the electronic document DICTATION DATE: 04/11/19 150 MERCHANT TAILOR: NIKOLAI 04/11/19 150 RPT#: [id number] DC DATE: STATUS: ADM IN [facility] [address] [place] [address] END OF REPORT
--- NOTE | 2019-04-11 15:39 | MORECARE ---
CASE MANAGEMENT DISCHARGE SUMMARY PATIENT: GALINA HEBERT UNIT: [id number] ADM DATE: 04/05/19 AGE: 58 : 56 SEX: M ROOM/BED: D.2222 AUTHOR: PHYLLIS,DOC PHYSICIAN: REFERRING PHYSICIAN: GABBY HUGHES MD DATE OF SERVICE: 04/11/19 Discharge Plan Patient Name: GALINA HEBERT Facility: [facility]:[place] : 1960 Planned Disposition: Home Anticipated Discharge Date: Discharge Date: Expected LOS: Initial Reviewer: [email or web address] Initial Review Date: 04/08/2019 Generated: 04/11/19 4:39 pm Comments DCP- Discharge Planning Updated by [id number]: Keara Wang on 04/11/19 1:[address] I have also faxed referral to [facility] [place] and [facility]. CM will continue to follow and assist with discharge planning/needs. DCP- Discharge Planning Updated by [email or web address]: Keara Wang on 04/11/19 1:[address] [facility] does not have a private room, so they cannot allow patient's significant other to spend the night with him. Patient states he would like me to try and find another facility that can accommodate him. I spoke with Keaton at [facility] and they also do not have a private room to accommodate his significant other. I left a message with Heike with [facility]. I will reach out to other facilities in the area. CM will continue to follow and assist with discharge planning/needs. DCP- Discharge Planning Updated by [id number]: Keara Wang on 04/10/19 1:[address] I met with patient per request. He states he cannot go home because he is homeless. I gave him the homeless shelters. He can go to [facility] between [phone] and must leave by 7am. His SO cannot stay there, it is a men's senior living. [facility] is full. The closest Custodial for females is [facility] in [place] and I gave her the number. She has been there before. They do not want to go to separate homeless shelters. He asked again about rehab. Medicaid does not have rehab benefits. I have called Teena at [facility] and she states he does not have a diagnosis for Medicaid to pay for his rehab. He agrees to referral to [facility] even though he may have to give up his check. I called leilani Hernandez for [facility], and referral faxed. She states she will come to the hospital tomorrow to see the patient. CM will continue to follow and assist with discharge planning/needs. DCP- Discharge Planning Updated by [id number]: Keara Wang on 04/10/19 10:[address] Received a call from Karyn with [facility]. She states because the patient has not been seen by Dr. Hughes in the office, she will be unable to sign off on home health orders at this time. When discharged, if f/u can be made with Dr. Hughes and once he is back at [facility], or wherever he makes home (cannot be homeless), they will be able to set up home health with IV antibiotics. Plan for now will be outpatient IV antibiotics daily with a bus ticket to and from the hospital. CM will give patient a list of homeless shelters and bus tickets. CM will continue to follow and assist with discharge planning/needs. DCP- Discharge Planning Updated by [id number]: Keara Wang on 04/08/19 2:[address] Patient called me to the room and states he has updated his address and his PCP is Dr. Hughes. JOLENE for [facility] and [place] signed. Patient states he is homeless until 03-18, then he will get his check and be able to return to [facility] on . I will contact [facility] so they can run his insurance to ensure Dr. Hughes has been updated in the system. CM will continue to follow and assist with discharge planning/needs. DCP- Discharge Planning Updated by [email or web address]: Keara Wang on 04/08/19 1:[address] Patient given the number to the [facility] in [place] [phone] to try and change address with Medicaid. He may have to go to the [facility] in person. CM will continue to follow and assist with discharge planning/needs. DCP- Discharge Planning Updated by [email or web address]: Keara Wang on 04/08/19 12:[address] Patient Name: GALINA HEBERT Admission Status: Elective Accout number: [id number] Admission Date: 04-05-2019 : 1960 Admission Diagnosis: Attending: GABBY HUGHES Current LOS: 3 Anticipated DC Date: Planned Disposition: Home Primary Insurance: MEDICAID [place] Discharge Planning Comments: CM met with patient and his fianc?e to discuss discharge planning. He is a transfer back from [facility], therefore nothing has changed. They have not called Medicaid number to change his address yet. I called the number from his room to have his address changed for him. He will have to have address change take effect first before he can get a primary doctor in [facility]. I informed him that without a PCP, he can not get home health. I gave him the options of going to a assisted to a intermediate designer bed for at least 30 days for his IV antibiotics, but he would have to give up his check. He is not willing to give up his check. I told him another option is to come to the hospital daily for IV antibiotics. I informed him again that home health is not an option until he has a Primary Care Physician in [facility] and it is listed on the Medicaid website. CM will continue to follow and assist with discharge planning/needs. Asian Studies Program Chair: Keara Wang DCPIA - Discharge Planning Initial Assessment Updated by [email or web address]: Keara Wang on 04/08/19 1:39 pm * Is the patient Alert and Oriented? Yes * PCP No PCP * Pharmacy [facility] on [address] * Preadmission Environment Acute Care Facility * Facility Name [facility] * ADLs Partial Dependent * Partial ADLs (Assistance needed) Ambulation * Equipment Other Wheelchair * Other Equipment Left BK prosthesis * List name and contact numbers for known caregivers / representatives who currently or will assist patient after discharge: Therese Coylestormy Marco Antonio barone?e - [phone] ([employer] number) Balaji Hebert - [facility] - [phone] * Verbal permission to speak to the caregivers and representatives has been obtained from the patient. No * Community resources currently utilized None * Additional services required to return to the preadmission environment? Yes * Can the patient safely return to the preadmission environment? Yes * Has this patient been hospitalized within the prior 30 days at any hospital? 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 Name: Delivery Method: HAND - Hand Delivered Norma Days: Prior Verbal Notification: Recipient Understood Notice: Yes Recipient Signature: Yes Med Rec Note Co-signed by Attending: Coverage Notice Comment: JOLENE FOR [facility] Reviewer: [id number] Marco Antonio Wang Notice Issued Date-Time: 04/10/2019 14:16 Notice Type: Patient Choice Letter Notice Delivered To: Patient Relationship to Patient: Self Fur Floor Worker Name: Delivery Method: HAND - Hand Delivered Norma Days: Prior Verbal Notification: Recipient Understood Notice: Yes Recipient Signature: Yes Med Rec Note Co-signed by Attending: Coverage Notice Comment: JOLENE for [facility] DP export: 04/11/19 2:03 Patient Name: GALINA HEBERT Page 24769 at 1539 All edits/amendments must be made on the electronic document DICTATION DATE: 04/11/19 153 CHILD CARE EDUCATION COORDINATOR: NIKOLAI 04/11/19 153 RPT#: [id number] DC DATE: STATUS: ADM IN [facility] [address] [place] [address] END OF REPORT
--- NOTE | 2019-04-11 16:35 | MORECARE ---
CASE MANAGEMENT DISCHARGE SUMMARY PATIENT: GALINA HEBERT UNIT: [id number] ADM DATE: 04/05/19 AGE: 58 : 56 SEX: M ROOM/BED: D.2222 AUTHOR: PHYLLIS,DOC PHYSICIAN: REFERRING PHYSICIAN: GABBY HUGHES MD DATE OF SERVICE: 04/11/19 Discharge Plan Patient Name: GALINA HEBERT Facility: [facility]:[place] : 1960 Planned Disposition: Home Anticipated Discharge Date: Discharge Date: Expected LOS: Initial Reviewer: [id number] Initial Review Date: 04/08/2019 Generated: 04/11/19 5:35 pm Comments DCP- Discharge Planning Updated by [email or web address]: Keara Wang on 04/11/19 1:[address] I have also faxed referral to [facility] [place] and [facility]. CM will continue to follow and assist with discharge planning/needs. DCP- Discharge Planning Updated by [id number]: Keara Wang on 04/11/19 1:[address] [facility] does not have a private room, so they cannot allow patient's significant other to spend the night with him. Patient states he would like me to try and find another facility that can accommodate him. I spoke with Keaton at [facility] and they also do not have a private room to accommodate his significant other. I left a message with Heike with [facility]. I will reach out to other facilities in the area. CM will continue to follow and assist with discharge planning/needs. DCP- Discharge Planning Updated by [id number]: Keara Wang on 04/10/19 1:[address] I met with patient per request. He states he cannot go home because he is homeless. I gave him the homeless shelters. He can go to [facility] between [phone] and must leave by 7am. His SO cannot stay there, it is a men's mcfp. [facility] is full. The closest Longterm for females is [facility] in [place] and I gave her the number. She has been there before. They do not want to go to separate homeless shelters. He asked again about rehab. Medicaid does not have rehab benefits. I have called Teena at [facility] and she states he does not have a diagnosis for Medicaid to pay for his rehab. He agrees to referral to [facility] even though he may have to give up his check. I called leilani Hernandez for [facility], and referral faxed. She states she will come to the hospital tomorrow to see the patient. CM will continue to follow and assist with discharge planning/needs. DCP- Discharge Planning Updated by [id number]: Keara Wang on 04/10/19 10:[address] Received a call from Karyn with [facility]. She states because the patient has not been seen by Dr. Hughes in the office, she will be unable to sign off on home health orders at this time. When discharged, if f/u can be made with Dr. Hughes and once he is back at [facility], or wherever he makes home (cannot be homeless), they will be able to set up home health with IV antibiotics. Plan for now will be outpatient IV antibiotics daily with a bus ticket to and from the hospital. CM will give patient a list of homeless shelters and bus tickets. CM will continue to follow and assist with discharge planning/needs. DCP- Discharge Planning Updated by [email or web address]: Keara Wang on 04/08/19 2:[address] Patient called me to the room and states he has updated his address and his PCP is Dr. Hughes. JOLENE for [facility] and [place] signed. Patient states he is homeless until 03-18, then he will get his check and be able to return to [facility] on . I will contact [facility] so they can run his insurance to ensure Dr. Hughes has been updated in the system. CM will continue to follow and assist with discharge planning/needs. DCP- Discharge Planning Updated by [email or web address]: Keara Wang on 04/08/19 1:[address] Patient given the number to the [facility] in [place] [phone] to try and change address with Medicaid. He may have to go to the [facility] in person. CM will continue to follow and assist with discharge planning/needs. DCP- Discharge Planning Updated by [id number]: Keara Wang on 04/08/19 12:[address] Patient Name: GALINA HEBERT Admission Status: Elective Accout number: [id number] Admission Date: 04-05-2019 : 1960 Admission Diagnosis: Attending: GABBY HUGHES Current LOS: 3 Anticipated DC Date: Planned Disposition: Home Primary Insurance: MEDICAID [place] Discharge Planning Comments: CM met with patient and his fianc?e to discuss discharge planning. He is a transfer back from [facility], therefore nothing has changed. They have not called Medicaid number to change his address yet. I called the number from his room to have his address changed for him. He will have to have address change take effect first before he can get a primary doctor in [facility]. I informed him that without a PCP, he can not get home health. I gave him the options of going to a detention to a terminal gauger supervisor bed for at least 30 days for his IV antibiotics, but he would have to give up his check. He is not willing to give up his check. I told him another option is to come to the hospital daily for IV antibiotics. I informed him again that home health is not an option until he has a Primary Care Physician in [facility] and it is listed on the Medicaid website. CM will continue to follow and assist with discharge planning/needs. Suspender Maker: Keara Wang DCPIA - Discharge Planning Initial Assessment Updated by [id number]: Keara Wang on 04/08/19 1:39 pm * Is the patient Alert and Oriented? Yes * PCP No PCP * Pharmacy [facility] [facility] * Preadmission Environment Acute Care Facility * Facility Name [facility] * ADLs Partial Dependent * Partial ADLs (Assistance needed) Ambulation * Equipment Other Wheelchair * Other Equipment Left BK prosthesis * List name and contact numbers for known caregivers / representatives who currently or will assist patient after discharge: Therese Leonidesstormy Marco Antonio barone?e - [phone] ([employer] number) Balaji Hebert - sam - [phone] * Verbal permission to speak to the caregivers and representatives has been obtained from the patient. No * Community resources currently utilized None * Additional services required to return to the preadmission environment? Yes * Can the patient safely return to the preadmission environment? Yes * Has this patient been hospitalized within the prior 30 days at any hospital? No External Providers [facility] Next Contact Date: Service Request Date: Service Type: Resolution: Reviewer: Comments: Coverage Notice Reviewer: [id number] Marco Antonio Wang Notice Issued Date-Time: 04/08/2019 15:51 Notice Type: Patient Choice Letter Notice Delivered To: Patient Relationship to Patient: Self Furnace Puncher Name: Delivery Method: HAND - Hand Delivered Norma Days: Prior Verbal Notification: Recipient Understood Notice: Yes Recipient Signature: Yes Med Rec Note Co-signed by Attending: Coverage Notice Comment: JOLENE FOR [facility] Reviewer: [id number] Marco Antonio Wang Notice Issued Date-Time: 04/10/2019 14:16 Notice Type: Patient Choice Letter Notice Delivered To: Patient Relationship to Patient: Self Furnace Puncher Name: Delivery Method: HAND - Hand Delivered Norma Days: Prior Verbal Notification: Recipient Understood Notice: Yes Recipient Signature: Yes Med Rec Note Co-signed by Attending: Coverage Notice Comment: JOLENE for [facility] DP export: 04/11/19 2:39 Patient Name: GALINA HEBERT Page 36390 at 1635 All edits/amendments must be made on the electronic document DICTATION DATE: 04/11/19 163 TILE PICKER: [email or web address] 04/11/19 1635 RPT#: [id number] DC DATE: STATUS: ADM IN [facility] [address] [place] [address] END OF REPORT
--- NOTE | 2019-04-11 16:38 | NUR ---
RESTING IN BED. DENIES NEEDS. WILL CONTINUE TO MONITOR.
[2019-04-11 16:45] VITALS: BP 131/79
--- NOTE | 2019-04-11 18:35 | NUR ---
PATIENT SLEEPING. AT BEDSIDE. BED LOW. CALL MAGAÑA AND PERSONAL ITEMS IN REACH.
--- NOTE | 2019-04-11 19:00 | NUR ---
PT ALERT AND ORIENTED. ASKING FOR PAIN MEDICINE FROM APPEALS REVIEWER VETERAN. INSTRUCTED PATIENT THAT IT IS DUE SHORTLY. PATIENT IS BILATERAL AMPUTEE. WITH DRESSING TO THE RIGHT STUMP FROM PREVIOUS REVISION. HAS LEFT UPPER ARM PICC LINE. DENIES FURTHER NEEDS OTHER THAN PAIN MEDICINE. SIGNIFICANT OTHER IN ROOM. CALL LIGHT IN REACH. CPOC.
[2019-04-11 20:01] VITALS: BP 123/76
[2019-04-12] VITALS: BP 124/69
[2019-04-12 04:00] VITALS: BP 129/59
[2019-04-12 05:44] LABS: BASOPHILS 0.2 % (0-2); HEMATOCRIT 42.5 % (42.0-54.0); HEMOGLOBIN 14.1 g/dL (13.5-17.5); IMMATURE GRANULOCYTES 0.3 % (0-5); LYMPHOCYTES 18.2 % (15-50); MCH 29.5 pg (26.0-34.0); MCHC 33.2 g/dL (31.0-37.0); MCV 88.9 fL (80.0-100.0); MEAN PLATELET VOLUME 10.2 fL (7.4-10.4); MONOCYTES 7.6 % (2-11); NEUTROPHILS 69.7 % (40-80); PLATELET COUNT 201 10x3/uL (130-400); RBC 4.78 10x6/uL (4.20-6.10)
[2019-04-12 06:01] LABS: CALC OSMOLALITY 281 mosm/kg (275-300); CARBON DIOXIDE 30.7 mmol/L (21.0-32.0); CHLORIDE - SERUM 103 mmol/L (98-107); GLUCOSE 143 mg/dL (74-106); POTASSIUM - SERUM 4.6 mmol/L (3.5-5.1); SODIUM 138 mmol/L (136-145); UREA NITROGEN 25 mg/dL (7-18); eGFR NON AFRICAN AMERICAN 81 mL/min (90-120)
[2019-04-12 06:07] LABS: WBC 9.8 10x3/uL (4.8-10.8)
--- NOTE | 2019-04-12 07:41 | NUR ---
PT RESTING IN BED. NO SIGNS OF DISTRESS. IV TO LEFT UPPER ARM PICC PATENT NO REDNESS OR TENDERNESS. PATITO BKA. DANYELL TO RIGHT STUMP. DRESSING CLEAN AND INTACT. DENIES ANY FURTHER NEED AT THIS TIME. CALL LIGHT IN REACH. BED LOW POSITION. FAMILY AT BEDSIDE.
[2019-04-12 07:59] VITALS: BP 113/75
[2019-04-12 12:42] VITALS: BP 103/53
[2019-04-12 17:32] VITALS: BP 104/55
--- NOTE | 2019-04-12 19:00 | NUR ---
PATIENT ALERT AND ORIENTED WHEN ENTERING THE ROOM. PATIENT HAS LEFT UPPER ARM PICC LINE THAT IS SALINE LOCKED. ROOM AIR. BILATERAL BKA. MEPILEX TO THE RIGHT STUMP WHICH HAD A REVISION 04/02. RATES PAIN 03/27. NO PAIN MEDICINE DUE AT THIS TIME. REQUESTS YURI CRACKERS AND MILK. PROVIDED TO PATIENT. CALL LIGHT IN REACH. AT BEDSIDE. DENIES FURTHER NEEDS AT THIS TIME. CPOC.
[2019-04-12 20:00] VITALS: BP 112/59
[2019-04-13] VITALS: BP 119/67
[2019-04-13 04:00] VITALS: BP 122/77
[2019-04-13 05:17] LABS: BASOPHILS 0.5 % (0-2); EOSINOPHILS 4.4 % (0-7); HEMATOCRIT 40.9 % (42.0-54.0); HEMOGLOBIN 13.7 g/dL (13.5-17.5); IMMATURE GRANULOCYTES 0.2 % (0-5); LYMPHOCYTES 31.4 % (15-50); MCH 29.4 pg (26.0-34.0); MCHC 33.5 g/dL (31.0-37.0); MCV 87.8 fL (80.0-100.0); MEAN PLATELET VOLUME 9.9 fL (7.4-10.4); MONOCYTES 8.4 % (2-11); NEUTROPHILS 55.1 % (40-80); PLATELET COUNT 205 10x3/uL (130-400); RBC 4.66 10x6/uL (4.20-6.10); RDW 13.2 % (11.5-14.5); WBC 6.6 10x3/uL (4.8-10.8)
[2019-04-13 05:28] LABS: CALC OSMOLALITY 286 mosm/kg (275-300); CALCIUM 8.6 mg/dL (8.5-10.1); CARBON DIOXIDE 27.9 mmol/L (21.0-32.0); CHLORIDE - SERUM 105 mmol/L (98-107); CREATININE - SERUM 0.9 mg/dL (0.6-1.3); GLUCOSE 186 mg/dL (74-106); POTASSIUM - SERUM 4.1 mmol/L (3.5-5.1); SODIUM 139 mmol/L (136-145); UREA NITROGEN 25 mg/dL (7-18); eGFR NON AFRICAN AMERICAN > 90 mL/min (90-120)
--- NOTE | 2019-04-13 05:32 | NUR ---
ALL THROUGH NIGHT SIGNIFICANT OTHER HAS COME TO NURSES STATION 5, 10, AND 15 MINUTES BEFORE PAIN MEDICINE IS DUE AND WAITS OUTSIDE OTHER PATIENTS ROOMS TO "REMIND" NURSE WHEN PATIENT'S PAIN MEDICINE IS DUE. TOLD PATIENT THAT THIS NURSE HAS EMAR THAT CAN REFLECT ON EXACT TIMES MEDICATIONS ARE GIVEN. PATIENT PERSISTENT IN WAITING OUTSIDE NURSES STATION. THEN WHEN THIS NURSE GOES INTO ROOM AND ADMINISTERS MEDICINE (WITHIN 5-15 MINUTES OF TIME AVAILABLE) PATIENT IS RUDE AND MAKES COMMENTS ABOUT TIMING, ETC, THIS MORNING PATIENT WAS ASLEEP UNTIL LAB TEAM WAS INTO TO DRAW BLOOD. PATIENT REQUESTED PAIN MEDICINE FROM SILK FINISHER. WHEN THIS NURSE CAME INTO ADMINISTER MEDICINE PATIENT UPSET THAT THIS NURSE DID NOT WAKE PATIENT TO GIVE MEDICINE. EXPLAINED TO PATIENT BETWEEN SCHEDULED AND PRN, BUT PATIENT WAS STILL AGGRAVATED EVEN WITH EXPLAINATION.
--- NOTE | 2019-04-13 06:18 | NUR ---
I have reviewed this patient and I concur with the Shift Assessment completed by the Licensed Practical Nurse today this shift.
[2019-04-13 07:49] VITALS: BP 119/65
--- NOTE | 2019-04-13 08:00 | NUR ---
RESTING QUIETLY IN BED WITH EYES CLOSED. ROUSES TO VERBAL STIMULATION. ALERT AND ORIENTED X3. LUNGS HAVE CRACKLES NOTED TO UPPER LOBE, PATIENT REPORTS SOMETIMES PRODUCTIVE COUGH. WILL MONITOR. SKIN IS INTACT WITHOUT REDNESS EXCEPT RIGHT AKA SURGICAL SITE WHICH HAS A DRY INTACT MEPELEX IN PLACE. PICC TO LEFT UPPER ARM PATENT WITHOUT REDNESS AT INSERTION SITE. FAMILY AT BEDSIDE. DENIES NEEDS.
--- NOTE | 2019-04-13 11:00 | NUR ---
RESTING QUIETLY AT THIS TIME. FAMILY AT BEDSIDE.
--- NOTE | 2019-04-13 12:00 | NUR ---
FSBS 220. GIVEN 8 UNITS HUMALOG SUBQ PER SS. DENIES NEEDS.
--- NOTE | 2019-04-13 12:43 | NUR ---
GIVEN 50MG ULTRAM PO FOR C/O PAIN LEVEL 10. WILL MONITOR.
[2019-04-13 13:10] VITALS: BP 137/75
--- NOTE | 2019-04-13 13:17 | NUR ---
SPOKE WITH DR. MONTOYA RE COMPRESSION DRESSING. HE SAID PATIENT WOULD HAVE TO FOLLOW UP WITH ORTHO THAT DID HIS SURGERY. TREVIN WRAP APPLIED TO RIGHT BKA PER STAFF.
--- NOTE | 2019-04-13 13:45 | NUR ---
SITTING UP ON SIDE OF BED. REPORTS THIS IS FIRST TIME SINCE SURGERY. PAIN STILL AT LEVEL 10. GIVEN 400MG IBUPROFEN AND HYDROCODONE PO FOR SAME. WILL MONITOR.
[2019-04-13 16:58] VITALS: BP 128/69
--- NOTE | 2019-04-13 18:19 | NUR ---
SITTING UP IN BED STILL EATING SUPPER. DENIES NEEDS. NO CHANGES NOTED.
--- NOTE | 2019-04-13 18:51 | NUR ---
REQUESTED AND GIVNE ONE HYDROCODONE AND 400MG IBUPORFEN PO FOR C/O RIGHT BKA PAIN LEVEL 8. WILL MONITOR.
--- NOTE | 2019-04-13 20:45 | NUR ---
WATCHING TV WITHOUT COMPLAITNS VOCIED. RESP EVEN AND UNALBORED. NO DISTRESS NOTED. IV TO LEFT PICC INTACT WIHTOUT REDNESS OR DARNELL NOTED. TREVIN WRAP INTACT TO RIGHT STUMP WITHOUT DRAINAGE NOTED. CL IN REACH. FAMILY AT BEDSIDE.
[2019-04-13 21:32] VITALS: BP 120/70
[2019-04-14 00:17] VITALS: BP 135/70
--- NOTE | 2019-04-14 03:26 | NUR ---
I have reviewed this patient and I concur with the Shift Assessment completed by the Licensed Practical Nurse today this shift.
[2019-04-14 04:47] VITALS: BP 130/68
[2019-04-14 06:53] LABS: BASOPHILS 0.5 % (0-2); EOSINOPHILS 4.7 % (0-7); HEMOGLOBIN 13.7 g/dL (13.5-17.5); IMMATURE GRANULOCYTES 0.2 % (0-5); MCH 29.5 pg (26.0-34.0); MCHC 33.4 g/dL (31.0-37.0); MCV 88.2 fL (80.0-100.0); MEAN PLATELET VOLUME 9.9 fL (7.4-10.4); MONOCYTES 9.8 % (2-11); NEUTROPHILS 50.8 % (40-80); PLATELET COUNT 199 10x3/uL (130-400); RBC 4.65 10x6/uL (4.20-6.10); WBC 6.4 10x3/uL (4.8-10.8)
[2019-04-14 07:07] LABS: CALC OSMOLALITY 280 mosm/kg (275-300); CALCIUM 8.7 mg/dL (8.5-10.1); CARBON DIOXIDE 28.8 mmol/L (21.0-32.0); CHLORIDE - SERUM 103 mmol/L (98-107); POTASSIUM - SERUM 3.9 mmol/L (3.5-5.1); SODIUM 139 mmol/L (136-145); UREA NITROGEN 27 mg/dL (7-18); eGFR NON AFRICAN AMERICAN 81 mL/min (90-120)
[2019-04-14 07:11] LABS: GLUCOSE 63 mg/dL (74-106)
[2019-04-14 07:56] VITALS: BP 145/67
--- NOTE | 2019-04-14 08:00 | NUR ---
PATIENT IN BED WITH EYES CLOSED RESTING QUIETLY. CALL LIGHT WITHIN REACH.
--- NOTE | 2019-04-14 09:03 | NUR ---
LATE ENTRY: 04/11/19 Removed dressing from [facility]. Incision site is clean, dry and intact. No bruising, odor or drainage noted. Changed dressing to Mepilex AG. Wound care will monitor.
[2019-04-14 11:43] VITALS: BP 124/59
--- NOTE | 2019-04-14 12:00 | NUR ---
PATIENT SITTING UP ON SIDE OF BED AT THIS TIME. IV INTACT. STATED HE IS IN PAIN AND HAS HAD TO WAIT TOO LONG FOR PAIN MED. EXPLAINED TO PATIENT I WAS WITH ANOTHER PATIENT. APOLOGIZED TO PATIENT. VERBALIZED UNDERSTANDING. FAMILY AT BEDSIDE. CALL LIGHT WITHIN REACH.
--- NOTE | 2019-04-14 12:51 | MORECARE ---
CASE MANAGEMENT DISCHARGE SUMMARY PATIENT: GALINA HEBERT UNIT: [id number] ADM DATE: 04/05/19 AGE: 58 : 56 SEX: M ROOM/BED: D.2222 AUTHOR: PHYLLISDOC PHYSICIAN: REFERRING PHYSICIAN: GABBY HUGHES MD DATE OF SERVICE: 04/14/19 Discharge Plan Patient Name: GALINA HEBERT Facility: [facility]:[place] : 1960 Planned Disposition: Home Anticipated Discharge Date: Discharge Date: Expected LOS: Initial Reviewer: [email or web address] Initial Review Date: 04/08/2019 Generated: 04/14/19 1:51 pm Comments DCP- Discharge Planning Updated by [id number]: Keara Wang on 04/14/19 11:[address] Jose Angel with [facility] is here to interview patient for possible admission. CM will continue to follow and assist with discharge planning/needs. He has been denied admission from [facility] and [facility]. DCP- Discharge Planning Updated by [id number]: Keara Wang on 04/11/19 1:[address] I have also faxed referral to [facility] [place] and [facility]. CM will continue to follow and assist with discharge planning/needs. DCP- Discharge Planning Updated by [id number]: Keara Wang on 04/11/19 1:[address] [facility] does not have a private room, so they cannot allow patient's significant other to spend the night with him. Patient states he would like me to try and find another facility that can accommodate him. I spoke with Keaton at [facility] and they also do not have a private room to accommodate his significant other. I left a message with Heike with [facility]. I will reach out to other facilities in the area. CM will continue to follow and assist with discharge planning/needs. DCP- Discharge Planning Updated by [id number]: Keara Wang on 04/10/19 1:[address] I met with patient per request. He states he cannot go home because he is homeless. I gave him the homeless shelters. He can go to [facility] between [phone] and must leave by 7am. His SO cannot stay there, it is a men's fpc. [facility] is full. The closest Fdc for females is [facility] in [place] and I gave her the number. She has been there before. They do not want to go to separate homeless shelters. He asked again about rehab. Medicaid does not have rehab benefits. I have called Teena at [facility] and she states he does not have a diagnosis for Medicaid to pay for his rehab. He agrees to referral to [facility] even though he may have to give up his check. I called leilani Hernandez for [facility], and referral faxed. She states she will come to the hospital tomorrow to see the patient. CM will continue to follow and assist with discharge planning/needs. DCP- Discharge Planning Updated by [id number]: Keara Wang on 04/10/19 10:[address] Received a call from Karyn with [facility]. She states because the patient has not been seen by Dr. Hughes in the office, she will be unable to sign off on home health orders at this time. When discharged, if f/u can be made with Dr. Hughes and once he is back at [facility], or wherever he makes home (cannot be homeless), they will be able to set up home health with IV antibiotics. Plan for now will be outpatient IV antibiotics daily with a bus ticket to and from the hospital. CM will give patient a list of homeless shelters and bus tickets. CM will continue to follow and assist with discharge planning/needs. DCP- Discharge Planning Updated by [id number]: Keara Wang on 04/08/19 2:[address] Patient called me to the room and states he has updated his address and his PCP is Dr. Hughes. JOLENE for [facility] and [place] signed. Patient states he is homeless until 03-18, then he will get his check and be able to return to [facility] on . I will contact [facility] so they can run his insurance to ensure Dr. Hughes has been updated in the system. CM will continue to follow and assist with discharge planning/needs. DCP- Discharge Planning Updated by [id number]: Keara Wang on 04/08/19 1:[address] Patient given the number to the [facility] in [place] [phone] to try and change address with Medicaid. He may have to go to the [facility] in person. CM will continue to follow and assist with discharge planning/needs. DCP- Discharge Planning Updated by [id number]: Keara Wang on 04/08/19 12:[address] Patient Name: GALINA HEBERT Admission Status: Elective Accout number: [id number] Admission Date: 04-05-2019 : 1960 Admission Diagnosis: Attending: GABBY HUGHES Current LOS: 3 Anticipated DC Date: Planned Disposition: Home Primary Insurance: MEDICAID [place] Discharge Planning Comments: CM met with patient and his fianc?e to discuss discharge planning. He is a transfer back from [facility], therefore nothing has changed. They have not called Medicaid number to change his address yet. I called the number from his room to have his address changed for him. He will have to have address change take effect first before he can get a primary doctor in [facility]. I informed him that without a PCP, he can not get home health. I gave him the options of going to a group home to a bed bug exterminator bed for at least 30 days for his IV antibiotics, but he would have to give up his check. He is not willing to give up his check. I told him another option is to come to the hospital daily for IV antibiotics. I informed him again that home health is not an option until he has a Primary Care Physician in [facility] and it is listed on the Medicaid website. CM will continue to follow and assist with discharge planning/needs. Wind Farm Operations Manager: Keara Wang [facility] - Discharge Planning Initial Assessment Updated by [id number]: Keara Wang on 04/08/19 1:39 pm * Is the patient Alert and Oriented? Yes * PCP No PCP * Pharmacy [facility] [address] * Preadmission Environment Acute Care Facility * Facility Name [facility] * ADLs Partial Dependent * Partial ADLs (Assistance needed) Ambulation * Equipment Other Wheelchair * Other Equipment Left BK prosthesis * List name and contact numbers for known caregivers / representatives who currently or will assist patient after discharge: Therese Potter - lizabeth?e - [phone] ([facility] [employer] number) Balaji Hebert - son - [phone] * Verbal permission to speak to the caregivers and representatives has been obtained from the patient. No * Community resources currently utilized None * Additional services required to return to the preadmission environment? Yes * Can the patient safely return to the preadmission environment? Yes * Has this patient been hospitalized within the prior 30 days at any hospital? No Coverage Notice Reviewer: [id number] Marco Antonio Wang Notice Issued Date-Time: 04/08/2019 15:51 Notice Type: Patient Choice Letter Notice Delivered To: Patient Relationship to Patient: Self Tanbark Peeler Name: Delivery Method: HAND - Hand Delivered Norma Days: Prior Verbal Notification: Recipient Understood Notice: Yes Recipient Signature: Yes Med Rec Note Co-signed by Attending: Coverage Notice Comment: JOLENE FOR [facility] Reviewer: [id number] Marco Antonio Wang Notice Issued Date-Time: 04/10/2019 14:16 Notice Type: Patient Choice Letter Notice Delivered To: Patient Relationship to Patient: Self Tanbark Peeler Name: Delivery Method: HAND - Hand Delivered Norma Days: Prior Verbal Notification: Recipient Understood Notice: Yes Recipient Signature: Yes Med Rec Note Co-signed by Attending: Coverage Notice Comment: JOLENE for [facility] DP export: 04/11/19 3:35 Patient Name: GALINA HEBERT Page [phone] at 1251 All edits/amendments must be made on the electronic document DICTATION DATE: 04/14/19 1251 MUSIC MIXER: [email or web address] 04/14/19 1251 RPT#: [id number] DC DATE: STATUS: ADM IN [facility] [address] [place] [address] END OF REPORT
[2019-04-14 13:44] LABS: ALBUMIN 3.4 g/dL (3.4-5.0); BILIRUBIN - DIRECT 0.1 mg/dL (0.00-0.30); BILIRUBIN - INDIRECT 0.13 mg/dL (0.00-1.00); BILIRUBIN - TOTAL 0.23 mg/dL (0.2-1.3); PROTEIN - SERUM 6.8 g/dL (6.4-8.2)
--- NOTE | 2019-04-14 13:56 | NUR ---
OT NOTE: BED MOB TO INCLUDE POSITIONING IN BED, SUPINE TO SIT, AND SIT TO SUPINE WITH MOD I AND USE OF BED RAILS. SITTING BALANCE IS FAIR+ ON EOB. PT CONT TO C/O SEVERE PAIN IN R LE. GINA GIRALDO, OTR/L
[2019-04-14 16:38] VITALS: BP 121/65
--- NOTE | 2019-04-14 16:45 | NUR ---
PATIENT IN WC WITH FAMILY ESCORTING HIM IN HALLWAY. IV INTACT. NO PROBLEMS NOTED.
--- NOTE | 2019-04-14 18:45 | NUR ---
PATIENT SITTING UP IN BED WITH IV INTACT. IMMOBILIZER ON. STATED PERCOCET IS WORKING BETTER FOR PAIN AT THIS TIME. IV INTACT. NO COMPLAINTS. CALL LIOGHT WITHIN REACH.
[2019-04-14 22:13] VITALS: BP 97/50
[2019-04-15 01:21] VITALS: BP 123/64
--- NOTE | 2019-04-15 01:38 | NUR ---
PT RESTING IN BED. EYES CLOSED. NO SIGNS OF DISTRESS. BREATHING EVEN AND UNLABORED. IV SITE LT UPPRER ARM PICC. DRESSING CLEAN DRY AND INTACT. NO SIGNS OF INFECTION. BOWEL SOUNDS ACTIVE. LUNG SOUNDS CLEAR. SKIN CLEAN DRY AND INTACT. RT KNEE DRESSING CLEAN DRY AND INTACT. BILATERAL BELOW KNEE AMPUTE. WILL CONTINUE PLAN OF CARE. CALL LIGHT IN REACH. BED LOWERED AND LOCKED. AT BEDSIDE. BED RAILS UPX1.
[2019-04-15 07:00] LABS: BASOPHILS 0.2 % (0-2); EOSINOPHILS 4.2 % (0-7); HEMOGLOBIN 12.7 g/dL (13.5-17.5); IMMATURE GRANULOCYTES 0.3 % (0-5); LYMPHOCYTES 22.5 % (15-50); MCHC 32.6 g/dL (31.0-37.0); MONOCYTES 9.2 % (2-11); NEUTROPHILS 63.6 % (40-80); PLATELET COUNT 191 10x3/uL (130-400); RBC 4.38 10x6/uL (4.20-6.10); RDW 13.2 % (11.5-14.5); WBC 6.6 10x3/uL (4.8-10.8)
[2019-04-15 07:11] LABS: ANION GAP 9.7 mmol/L (8-16); CALCIUM 8.7 mg/dL (8.5-10.1); CARBON DIOXIDE 30.6 mmol/L (21.0-32.0); CREATININE - SERUM 1.2 mg/dL (0.6-1.3); POTASSIUM - SERUM 4.3 mmol/L (3.5-5.1)
[2019-04-15 08:22] VITALS: BP 109/55
--- NOTE | 2019-04-15 09:22 | MORECARE ---
CASE MANAGEMENT DISCHARGE SUMMARY PATIENT: GALINA HEBERT UNIT: [id number] ADM DATE: 04/05/19 AGE: 58 : 56 SEX: M ROOM/BED: D.2222 AUTHOR: PHYLLIS,DOC PHYSICIAN: REFERRING PHYSICIAN: GABBY HUGHES MD DATE OF SERVICE: 04/15/19 Discharge Plan Patient Name: GALINA HEBERT Facility: [facility]:[place] : 1960 Planned Disposition: Home Anticipated Discharge Date: Discharge Date: Expected LOS: Initial Reviewer: [email or web address] Initial Review Date: 04/08/2019 Generated: 04/15/19 10:22 am Comments DCP- Discharge Planning Updated by [id number]: Keara Wang on 04/15/19 8:[address] Mickie from [facility] called and has denied admission. Jose Angel from [facility] states he will go to his am meeting, hopefully can admit today. CM will continue to follow and assist with discharge planning/needs. DCP- Discharge Planning Updated by [email or web address]: Keara Wang on 04/14/19 11:[address] Jos Eangel with [facility] is here to interview patient for possible admission. CM will continue to follow and assist with discharge planning/needs. He has been denied admission from [facility] and [facility]. DCP- Discharge Planning Updated by [id number]: Keara Wang on 04/11/19 1:[address] I have also faxed referral to [facility] and [facility]. CM will continue to follow and assist with discharge planning/needs. DCP- Discharge Planning Updated by [id number]: Keara Wang on 04/11/19 1:[address] [facility] does not have a private room, so they cannot allow patient's significant other to spend the night with him. Patient states he would like me to try and find another facility that can accommodate him. I spoke with Keaton at [facility] and they also do not have a private room to accommodate his significant other. I left a message with Heike with [facility]. I will reach out to other facilities in the area. CM will continue to follow and assist with discharge planning/needs. DCP- Discharge Planning Updated by [id number]: Keara Wang on 04/10/19 1:[address] I met with patient per request. He states he cannot go home because he is homeless. I gave him the homeless shelters. He can go to [facility] between [phone] and must leave by 7am. His SO cannot stay there, it is a men's custodial. [facility] is full. The closest Snf for females is [facility] in [place] and I gave her the number. She has been there before. They do not want to go to separate homeless shelters. He asked again about rehab. Medicaid does not have rehab benefits. I have called Teena at [facility] and she states he does not have a diagnosis for Medicaid to pay for his rehab. He agrees to referral to [facility] even though he may have to give up his check. I called leilani Hernandez for [facility], and referral faxed. She states she will come to the hospital tomorrow to see the patient. CM will continue to follow and assist with discharge planning/needs. DCP- Discharge Planning Updated by [id number]: Keara Kathleen on 04/10/19 10:[address] Received a call from Karyn with [facility]. She states because the patient has not been seen by Dr. Hughes in the office, she will be unable to sign off on home health orders at this time. When discharged, if f/u can be made with Dr. Hughes and once he is back at [facility], or wherever he makes home (cannot be homeless), they will be able to set up home health with IV antibiotics. Plan for now will be outpatient IV antibiotics daily with a bus ticket to and from the hospital. CM will give patient a list of homeless shelters and bus tickets. CM will continue to follow and assist with discharge planning/needs. DCP- Discharge Planning Updated by [id number]: Keara Browndiane on 04/08/19 2:[address] Patient called me to the room and states he has updated his address and his PCP is Dr. Hughes. JOLENE for [facility] and [place] signed. Patient states he is homeless until 03-18, then he will get his check and be able to return to [facility] [address]. I will contact [facility] so they can run his insurance to ensure Dr. Hughes has been updated in the system. CM will continue to follow and assist with discharge planning/needs. DCP- Discharge Planning Updated by [id number]: Keara Wang on 04/08/19 1:[address] Patient given the number to the [facility] in [place] [phone] to try and change address with Medicaid. He may have to go to the [facility] in person. CM will continue to follow and assist with discharge planning/needs. DCP- Discharge Planning Updated by [id number]: Keara Wang on 04/08/19 12:[address] Patient Name: GALINA HEBERT Admission Status: Elective Accout number: [id number] Admission Date: 04-05-2019 : 1960 Admission Diagnosis: Attending: GABBY HUGHES Current LOS: 3 Anticipated DC Date: Planned Disposition: Home Primary Insurance: [place]ID [place] Discharge Planning Comments: CM met with patient and his fianc?e to discuss discharge planning. He is a transfer back from [facility], therefore nothing has changed. They have not called Medicaid number to change his address yet. I called the number from his room to have his address changed for him. He will have to have address change take effect first before he can get a primary doctor in [facility]. I informed him that without a PCP, he can not get home health. I gave him the options of going to a [facility] to a skilled nursing bed for at least 30 days for his IV antibiotics, but he would have to give up his check. He is not willing to give up his check. I told him another option is to come to the hospital daily for IV antibiotics. I informed him again that home health is not an option until he has a Primary Care Physician in [facility] and it is listed on the Medicaid website. CM will continue to follow and assist with discharge planning/needs. Uniforms Sales Representative: Keara Wang DCPIA - Discharge Planning Initial Assessment Updated by [id number]: Keara Wang on 04/08/19 1:39 pm * Is the patient Alert and Oriented? Yes * PCP No PCP * Pharmacy [facility] [address] * Preadmission Environment Acute Care Facility * Facility Name [facility] * ADLs Partial Dependent * Partial ADLs (Assistance needed) Ambulation * Equipment Other Wheelchair * Other Equipment Left BK prosthesis * List name and contact numbers for known caregivers / representatives who currently or will assist patient after discharge: Therese barone?e - [phone] ([employer] number) Balaji Hebert - sam - [phone] * Verbal permission to speak to the caregivers and representatives has been obtained from the patient. No * Community resources currently utilized None * Additional services required to return to the preadmission environment? Yes * Can the patient safely return to the preadmission environment? Yes * Has this patient been hospitalized within the prior 30 days at any hospital? No Coverage Notice Reviewer: [id number] Marco Antonio Wang Notice Issued Date-Time: 04/08/2019 15:51 Notice Type: Patient Choice Letter Notice Delivered To: Patient Relationship to Patient: Self Color Television Console Monitor Name: Delivery Method: HAND - Hand Delivered Norma Days: Prior Verbal Notification: Recipient Understood Notice: Yes Recipient Signature: Yes Med Rec Note Co-signed by Attending: Coverage Notice Comment: JOLENE FOR [facility] Reviewer: [id number] Wang Notice Issued Date-Time: 04/10/2019 14:16 Notice Type: Patient Choice Letter Notice Delivered To: Patient Relationship to Patient: Self Color Television Console Monitor Name: Delivery Method: HAND - Hand Delivered Norma Days: Prior Verbal Notification: Recipient Understood Notice: Yes Recipient Signature: Yes Med Rec Note Co-signed by Attending: Coverage Notice Comment: JOLENE for [facility] DP export: 04/14/19 11:51 Patient Name: GALINA HEBERT Page 29083 at 0922 All edits/amendments must be made on the electronic document DICTATION DATE: 04/15/19921 FACILITY COORDINATOR: NIKOLAI 04/15/19921 RPT#: [id number] DC DATE: STATUS: ADM IN [facility] [address] [place] [address] END OF REPORT
[2019-04-15 12:37] VITALS: BP 108/69
[2019-04-15] MEDS ORDERED: NICODERM C1 PATCH .2 TRANSDERM (13:20)
[2019-04-15] MEDS ORDERED: FLORAJEN3 CAPS460 MG PO (13:21)
[2019-04-15] MEDS ORDERED: NEURONTIN 300300 MG PO (13:21)
[2019-04-15] MEDS ORDERED: PROTONIX40 MG PO (13:21)
[2019-04-15] MEDS ORDERED: LEVOFLOXACIN500 MG PO (13:22)
[2019-04-15] MEDS ORDERED: FLAGYL500 MG PO (13:22)
[2019-04-15] MEDS ORDERED: ROCEPHIN 2 GM/D5W 50 IV (13:23)
--- NOTE | 2019-04-15 13:37 | MORECARE ---
CASE MANAGEMENT DISCHARGE SUMMARY PATIENT: GALINA HEBERT UNIT: [id number] ADM DATE: 04/05/19 AGE: 58 : 56 SEX: M ROOM/BED: D.2222 AUTHOR: PHYLLIS,DOC PHYSICIAN: REFERRING PHYSICIAN: GABBY HUGHES MD DATE OF SERVICE: 04/15/19 Discharge Plan Patient Name: GALINA HEBERT Facility: [facility]:[place] : 1960 Planned Disposition: Home Anticipated Discharge Date: Discharge Date: Expected LOS: Initial Reviewer: [id number] Initial Review Date: 04/08/2019 Generated: 04/15/19 2:36 pm Comments DCP- Discharge Planning Updated by [email or web address]: Keara aWng on 04/15/19 12:[address] Jose Angel with [facility] is here and they will accept patient today. He states he will be here to have patient sign admission paper work and will arrange transport time and let me know the time. I spoke with the patient and he is agreeable to discharge plan. I spoke with Katelynn Sutton and received DC orders, clinical and orders faxed to [facility]. Discharging to a Medicaid bed. DCP- Discharge Planning Updated by [id number]: Keara Wang on 04/15/19 8:[address] Mickie from [facility] called and has denied admission. Jose Angel from [facility] states he will go to his am meeting, hopefully can admit today. CM will continue to follow and assist with discharge planning/needs. DCP- Discharge Planning Updated by [id number]: Keara Wang on 04/14/19 11:[address] Jose Angel with [facility] is here to interview patient for possible admission. CM will continue to follow and assist with discharge planning/needs. He has been denied admission from [facility]. DCP- Discharge Planning Updated by [id number]: Keara Wang on 04/11/19 1:[address] I have also faxed referral to [facility] and [facility]. CM will continue to follow and assist with discharge planning/needs. DCP- Discharge Planning Updated by [id number]: Keara Wang on 04/11/19 1:[address] [facility] does not have a private room, so they cannot allow patient's significant other to spend the night with him. Patient states he would like me to try and find another facility that can accommodate him. I spoke with Keaton at [facility] and they also do not have a private room to accommodate his significant other. I left a message with Heike with [facility]. I will reach out to other facilities in the area. CM will continue to follow and assist with discharge planning/needs. DCP- Discharge Planning Updated by [id number]: Keara Wang on 04/10/19 1:[address] I met with patient per request. He states he cannot go home because he is homeless. I gave him the homeless shelters. He can go to [facility] between [phone] and must leave by 7am. His SO cannot stay there, it is a men's fci. [facility] is full. The closest Nursing Home for females is [facility] in [place] and I gave her the number. She has been there before. They do not want to go to separate homeless shelters. He asked again about rehab. Medicaid does not have rehab benefits. I have called Teena at [facility] and she states he does not have a diagnosis for Medicaid to pay for his rehab. He agrees to referral to [facility] even though he may have to give up his check. I called leilani Hernandez for [facility], and referral faxed. She states she will come to the hospital tomorrow to see the patient. CM will continue to follow and assist with discharge planning/needs. DCP- Discharge Planning Updated by [id number]: Keara Kathleen on 04/10/19 10:[address] Received a call from Karyn with [facility]. She states because the patient has not been seen by Dr. Hughes in the office, she will be unable to sign off on home health orders at this time. When discharged, if f/u can be made with Dr. Hughes and once he is back at [facility], or wherever he makes home (cannot be homeless), they will be able to set up home health with IV antibiotics. Plan for now will be outpatient IV antibiotics daily with a bus ticket to and from the hospital. CM will give patient a list of homeless shelters and bus tickets. CM will continue to follow and assist with discharge planning/needs. DCP- Discharge Planning Updated by [id number]: Keara Wang on 04/08/19 2:[address] Patient called me to the room and states he has updated his address and his PCP is Dr. Hughes. JOLENE for [employer] [facility] and [place] signed. Patient states he is homeless until 03-18, then he will get his check and be able to return to [facility] on [address]. I will contact [employer] [facility] so they can run his insurance to ensure Dr. Hughes has been updated in the system. CM will continue to follow and assist with discharge planning/needs. DCP- Discharge Planning Updated by [id number]: Keara Wang on 04/08/19 1:[address] Patient given the number to the [facility] in [place] [phone] to try and change address with Medicaid. He may have to go to the [facility] in person. CM will continue to follow and assist with discharge planning/needs. DCP- Discharge Planning Updated by [id number]: Keara Wang on 04/08/19 12:[address] Patient Name: GALINA HEBERT Admission Status: Elective Accout number: [id number] Admission Date: 04-05-2019 : 1960 Admission Diagnosis: Attending: GABBY HUGHES Current LOS: 3 Anticipated DC Date: Planned Disposition: Home Primary Insurance: MEDICAID [place] Discharge Planning Comments: CM met with patient and his fianc?e to discuss discharge planning. He is a transfer back from [facility], therefore nothing has changed. They have not called Medicaid number to change his address yet. I called the number from his room to have his address changed for him. He will have to have address change take effect first before he can get a primary doctor in [facility]. I informed him that without a PCP, he can not get home health. I gave him the options of going to a custodial to a intermediate bed for at least 30 days for his IV antibiotics, but he would have to give up his check. He is not willing to give up his check. I told him another option is to come to the hospital daily for IV antibiotics. I informed him again that home health is not an option until he has a Primary Care Physician in [facility] and it is listed on the Medicaid website. CM will continue to follow and assist with discharge planning/needs. Brokerage Manager: Keara Wang DCPIA - Discharge Planning Initial Assessment Updated by [email or web address]: Keara Wang on 04/08/19 1:39 pm * Is the patient Alert and Oriented? Yes * PCP No PCP * Pharmacy [facility] [address] * Preadmission Environment Acute Care Facility * Facility Name [facility] * ADLs Partial Dependent * Partial ADLs (Assistance needed) Ambulation * Equipment Other Wheelchair * Other Equipment Left BK prosthesis * List name and contact numbers for known caregivers / representatives who currently or will assist patient after discharge: Therese Leonidesstormy Bernard lizabeth?e - [phone] ([employer] number) Balaji Hebert - son - [phone] * Verbal permission to speak to the caregivers and representatives has been obtained from the patient. No * Community resources currently utilized None * Additional services required to return to the preadmission environment? Yes * Can the patient safely return to the preadmission environment? Yes * Has this patient been hospitalized within the prior 30 days at any hospital? No Coverage Notice Reviewer: [email or web address] Wang Notice Issued Date-Time: 04/08/2019 15:51 Notice Type: Patient Choice Letter Notice Delivered To: Patient Relationship to Patient: Self Asset Recovery Specialist Name: Delivery Method: HAND - Hand Delivered Norma Days: Prior Verbal Notification: Recipient Understood Notice: Yes Recipient Signature: Yes Med Rec Note Co-signed by Attending: Coverage Notice Comment: [facility] Reviewer: [id number] Marco Antonio Wang Notice Issued Date-Time: 04/10/2019 14:16 Notice Type: Patient Choice Letter Notice Delivered To: Patient Relationship to Patient: Self Asset Recovery Specialist Name: Delivery Method: HAND - Hand Delivered Norma Days: Prior Verbal Notification: Recipient Understood Notice: Yes Recipient Signature: Yes Med Rec Note Co-signed by Attending: Coverage Notice Comment: JOLENE for [facility] export: 04/15/19 8:22 Patient Name: GALINA HEBERT Page [id number] at 1337 All edits/amendments must be made on the electronic document DICTATION DATE: 04/15/19 1335 LIGHT RAIL SIGNAL TECHNICIAN: NIKOLAI 04/15/19 1336 RPT#: [id number] DC DATE: STATUS: ADM IN [facility] [address] [facility] [place] [address] END OF REPORT
[2019-04-15] MEDS ORDERED: PERCOCET 10-321 EAC1 PO (15:59)
--- NOTE | 2019-04-17 07:01 | MORECARE ---
CASE MANAGEMENT DISCHARGE SUMMARY PATIENT: GALINA HEBERT UNIT: [id number] ADM DATE: 04/05/19 AGE: 58 : 56 SEX: M ROOM/BED: D.2222 AUTHOR: PHYLLIS,DOC PHYSICIAN: REFERRING PHYSICIAN: GABBY HUGHES MD DATE OF SERVICE: 04/17/19 Discharge Plan Patient Name: GALINA HEBERT Facility: [facility]:[place] : 1960 Planned Disposition: Home Anticipated Discharge Date: Discharge Date: 04/15/2019 Expected LOS: 0 Initial Reviewer: [email or web address] Initial Review Date: 04/08/2019 Generated: 04/17/19 8:01 am Comments DCP- Discharge Planning Updated by [id number]: Keara Wang on 04/15/19 12:[address] Jose Angel with [facility] is here and they will accept patient today. He states he will be here to have patient sign admission paper work and will arrange transport time and let me know the time. I spoke with the patient and he is agreeable to discharge plan. I spoke with Katelynn Sutton and received DC orders, clinical and orders faxed to [facility]. Discharging to a Medicaid bed. DCP- Discharge Planning Updated by [id number]: Keara Wang on 04/15/19 8:[address] Mickie from [place] called and has denied admission. Jose Angel from [facility] states he will go to his am meeting, hopefully can admit today. CM will continue to follow and assist with discharge planning/needs. DCP- Discharge Planning Updated by [email or web address]: Keara Wang on 04/14/19 11:[address] Jose Angel with [facility] is here to interview patient for possible admission. CM will continue to follow and assist with discharge planning/needs. He has been denied admission from [facility]. DCP- Discharge Planning Updated by [id number]: Keara Wang on 04/11/19 1:[address] I have also faxed referral to [facility], [place] and [facility]. CM will continue to follow and assist with discharge planning/needs. DCP- Discharge Planning Updated by [id number]: Keara Wang on 04/11/19 1:[address] [facility] does not have a private room, so they cannot allow patient's significant other to spend the night with him. Patient states he would like me to try and find another facility that can accommodate him. I spoke with Keaton at [facility] and they also do not have a private room to accommodate his significant other. I left a message with Heike with [facility]. I will reach out to other facilities in the area. CM will continue to follow and assist with discharge planning/needs. DCP- Discharge Planning Updated by [id number]: Keara Wang on 04/10/19 1:[address] I met with patient per request. He states he cannot go home because he is homeless. I gave him the homeless shelters. He can go to [facility] between [phone] and must leave by 7am. His SO cannot stay there, it is a men's jail. [facility] is full. The [facility] for [facility] is [facility] in [place] and I gave her the number. She has been there before. They do not want to go to separate homeless shelters. He asked again about rehab. Medicaid does not have rehab benefits. I have called Teena at [facility] and she states he does not have a diagnosis for Medicaid to pay for his rehab. He agrees to referral to [facility] even though he may have to give up his check. I called leilani Hernandez for [facility], and referral faxed. She states she will come to the hospital tomorrow to see the patient. CM will continue to follow and assist with discharge planning/needs. DCP- Discharge Planning Updated by [id number]: Keara Wang on 04/10/19 10:[address] Received a call from Karyn with [facility]. She states because the patient has not been seen by Dr. Hughes in the office, she will be unable to sign off on home health orders at this time. When discharged, if f/u can be made with Dr. Hughes and once he is back at [facility], or wherever he makes home (cannot be homeless), they will be able to set up home health with IV antibiotics. Plan for now will be outpatient IV antibiotics daily with a bus ticket to and from the hospital. CM will give patient a list of homeless shelters and bus tickets. CM will continue to follow and assist with discharge planning/needs. DCP- Discharge Planning Updated by [id number]: Keara Wang on 04/08/19 2:[address] Patient called me to the room and states he has updated his address and his PCP is Dr. Hughes. JOLENE for [employer] [facility] and [place] signed. Patient states he is homeless until 03-18, then he will get his check and be able to return to [facility] on . I will contact [employer] [facility] so they can run his insurance to ensure Dr. Hughes has been updated in the system. CM will continue to follow and assist with discharge planning/needs. DCP- Discharge Planning Updated by [id number]: Keara Wang on 04/08/19 1:[address] Patient given the number to the [facility] in [place] [phone] to try and change address with Medicaid. He may have to go to the [facility] in person. CM will continue to follow and assist with discharge planning/needs. DCP- Discharge Planning Updated by [id number]: Keara Wang on 04/08/19 12:[address] Patient Name: GALINA HEBERT Admission Status: Elective Accout number: [id number] Admission Date: 04-05-2019 : 1960 Admission Diagnosis: Attending: GABBY HUGHES Current LOS: 3 Anticipated DC Date: Planned Disposition: Home Primary Insurance: MEDICAID [place] Discharge Planning Comments: CM met with patient and his fianc?e to discuss discharge planning. He is a transfer back from [facility], therefore nothing has changed. They have not called Medicaid number to change his address yet. I called the number from his room to have his address changed for him. He will have to have address change take effect first before he can get a primary doctor in [facility]. I informed him that without a PCP, he can not get home health. I gave him the options of going to a longterm to a meterman bed for at least 30 days for his IV antibiotics, but he would have to give up his check. He is not willing to give up his check. I told him another option is to come to the hospital daily for IV antibiotics. I informed him again that home health is not an option until he has a Primary Care Physician in [facility] and it is listed on the Medicaid website. CM will continue to follow and assist with discharge planning/needs. Strand Buncher Fine Wire: Keara Wang DCPIA - Discharge Planning Initial Assessment Updated by [email or web address]: Keara Wang on 04/08/19 1:39 pm * Is the patient Alert and Oriented? Yes * PCP No PCP * Pharmacy [facility] [address] * Preadmission Environment Acute Care Facility * Facility Name [facility] * ADLs Partial Dependent * Partial ADLs (Assistance needed) Ambulation * Equipment Other Wheelchair * Other Equipment Left BK prosthesis * List name and contact numbers for known caregivers / representatives who currently or will assist patient after discharge: Therese Coylestormy Bernard lizabeth?e - [phone] ([employer] number) Balaji Hebert - son - [phone] * Verbal permission to speak to the caregivers and representatives has been obtained from the patient. No * Community resources currently utilized None * Additional services required to return to the preadmission environment? Yes * Can the patient safely return to the preadmission environment? Yes * Has this patient been hospitalized within the prior 30 days at any hospital? No Coverage Notice Reviewer: [id number] Marco Antonio Wang Notice Issued Date-Time: 04/08/2019 15:51 Notice Type: Patient Choice Letter Notice Delivered To: Patient Relationship to Patient: Self Academic Coordinator Name: Delivery Method: HAND - Hand Delivered Norma Days: Prior Verbal Notification: Recipient Understood Notice: Yes Recipient Signature: Yes Med Rec Note Co-signed by Attending: Coverage Notice Comment: JOLENE FOR [facility] Reviewer: [id number] Marco Antonio Wang Notice Issued Date-Time: 04/10/2019 14:16 Notice Type: Patient Choice Letter Notice Delivered To: Patient Relationship to Patient: Self Academic Coordinator Name: Delivery Method: HAND - Hand Delivered Norma Days: Prior Verbal Notification: Recipient Understood Notice: Yes Recipient Signature: Yes Med Rec Note Co-signed by Attending: Coverage Notice Comment: JOLENE for [facility] Last DP export: 04/15/19 12:37 Patient Name: GALINA HEBERT Page [id number] at 0701 All edits/amendments must be made on the electronic document DICTATION DATE: 04/17/19 0701 PROCEDURAL NURSE: NIKOLAI 04/17/19 0701 RPT#: [id number] DC DATE:04/15/19 STATUS: DIS IN [facility] [address] [place] [address] END OF REPORT
== END 2019-04-15 16:21 | DRG 564 ==
LOC: D.MS 12:05
PROVIDERS: Family Medicine; Internal Medicine Nephrology; ADMIT Family Medicine; ATTEND Family Medicine
PROC: 05HY33Z Insertion of Infusion Device into Upper Vein, Percutaneous Approach (ICD-10-PCS; principal; 2019-04-10)
DX: T87.43 Infection of amputation stump, right lower extremity (principal); R53.2 Functional quadriplegia; F17.203 Nicotine dependence unspecified, with withdrawal; N17.9 Acute kidney failure, unspecified; L03.115 Cellulitis of right lower limb; I25.10 Atherosclerotic heart disease of native coronary artery without angina pectoris; I10 Essential (primary) hypertension; E78.5 Hyperlipidemia, unspecified; K21.9 Gastro-esophageal reflux disease without esophagitis; J44.9 Chronic obstructive pulmonary disease, unspecified; E11.51 Type 2 diabetes mellitus with diabetic peripheral angiopathy without gangrene

== ENCOUNTER → 2019-05-02 14:20 | Outpatient (CLI) | payer MEDICAID ==
[2019-04-07 14:20] VITALS: BMI 28.7
[~2019-05-02 14:20] MED LIST changes: +FLAGYL500 MG PO; +FLORAJEN3 CAPS460 MG PO; +LEVOFLOXACIN500 MG PO; +NEURONTIN 300300 MG PO; +NICODERM C1 PATCH .2 TRANSDERM; +PERCOCET 10-321 EAC1 PO; +ROCEPHIN 2 GM/D5W 50 IV
== END | disposition home or self-care (01) ==
LOC: D.RAD 14:20
PROVIDERS: ATTEND Internal Medicine Geriatric Medicine
DX: L03.115 Cellulitis of right lower limb (principal); Z45.2 Encounter for adjustment and management of vascular access device; E11.51 Type 2 diabetes mellitus with diabetic peripheral angiopathy without gangrene; I25.10 Atherosclerotic heart disease of native coronary artery without angina pectoris; J98.11 Atelectasis; Z89.511 Acquired absence of right leg below knee

== ENCOUNTER 2019-06-03 13:08 | Emergency (ER) | payer MEDICAID ==
[~2019-06-03] VITALS: Ht 172.7 cm; Wt 97.3 kg
[2019-06-03 13:17] VITALS: BP 135/72; Ht 172.7 cm; Wt 97.3 kg
[2019-06-03 13:52] LABS: BASOPHILS 0.2 % (0-2); EOSINOPHILS 2.2 % (0-7); HEMATOCRIT 45.5 % (42.0-54.0); HEMOGLOBIN 15.3 g/dL (13.5-17.5); IMMATURE GRANULOCYTES 0.4 % (0-5); LYMPHOCYTES 22.9 % (15-50); MCH 30.2 pg (26.0-34.0); MCHC 33.6 g/dL (31.0-37.0); MCV 89.9 fL (80.0-100.0); MEAN PLATELET VOLUME 10.2 fL (7.4-10.4); MONOCYTES 8.1 % (2-11); NEUTROPHILS 66.2 % (40-80); PLATELET COUNT 162 10x3/uL (130-400); RBC 5.06 10x6/uL (4.20-6.10); WBC 8.1 10x3/uL (4.8-10.8)
[2019-06-03 14:01] LABS: CALC OSMOLALITY 278 mosm/kg (275-300); CALCIUM 8.8 mg/dL (8.5-10.1); CARBON DIOXIDE 26.7 mmol/L (21.0-32.0); CHLORIDE - SERUM 105 mmol/L (98-107); CREATININE - SERUM 0.9 mg/dL (0.6-1.3); POTASSIUM - SERUM 3.8 mmol/L (3.5-5.1); SODIUM 138 mmol/L (136-145); UREA NITROGEN 20 mg/dL (7-18); eGFR NON AFRICAN AMERICAN > 90 mL/min (90-120)
[2019-06-03 14:04] LABS: GLUCOSE 99 mg/dL (74-106)
[2019-06-03 14:07] LABS: ALBUMIN 3.7 g/dL (3.4-5.0); ALKALINE PHOSPHATASE 66 U/L (46-116); ALT (SGPT) 41 U/L (10-68); BILIRUBIN - TOTAL 0.34 mg/dL (0.2-1.3); PROTEIN - SERUM 7.1 g/dL (6.4-8.2)
== END 2019-06-03 16:04 ==
LOC: D.ER 13:08
PROVIDERS: Family Medicine
DX: T87.9 Unspecified complications of amputation stump (principal); I10 Essential (primary) hypertension; E11.9 Type 2 diabetes mellitus without complications; Z79.4 Long term (current) use of insulin; Z95.5 Presence of coronary angioplasty implant and graft; K21.9 Gastro-esophageal reflux disease without esophagitis